=== PATIENT | male | born 1950 | race Caucasian/White ===

== ENCOUNTER 2016-11-13 18:51 | Emergency (ER) | payer OTHER ==
[~2016-11-13] VITALS: Ht 182.9 cm; Wt 77.7 kg
[~2016-11-13 18:51] MED LIST: ASPEC81 PO; CLON0.2T11 PO; CLOP1TAB15 PO; SIMV40TA2 PO
[2016-11-13 18:57] VITALS: TEMP 36.6; Ht 182.9 cm; Wt 77.7 kg
[2016-11-13] MEDS ORDERED: SODIUM CHLORIDE 0.9% 1000ML 500 ML IV STA (19:08)
[2016-11-13 19:10] VITALS: O2SAT 98
--- NOTE | 2016-11-13 19:19 | EMERGENCY ROOM VISIT NOTE ---
History Report prepared by Ann: Giovanni Seals Under the Supervision of: Dr. John Whelan M.D. First contact with patient: 19:02 Chief Complaint: CARDIAC ASSESSMENT Stated Complaint: POSSIBLE HEART ATTACK, MAYBE INDGESTION History of Present Illness The patient is a 66 year old male who presents to the Emergency Room with complaints of intermittent right sided chest pressure beginning yesterday. He states it was not painful at all, and states that it is relieved with belching. He states that the sensation is usually there for about a minute at a time. The patient has a history of a previous SD and states that his current symptoms feel somewhat similar. He states that there was no intervention needed for his previous SD. He denies any shortness of breath, cough, pain radiation, nausea, or diaphoresis. The patient notes that exercising improved his symptoms. His most recent stress-test was between 2-4 years ago. He estimates that he has had three episodes of his symptoms today, and three episodes yesterday. Source of History: patient Onset: Today Position: chest (right) Symptom Intensity: 1 minute episodes Quality: pressure Timing: intermittent Modifying Factors (Relieving): other (belching) Associated Symptoms: No SOB, No cough, No diaphoresis, No nausea Review of Systems See HPI for pertinent positives & negatives. A total of 10 systems reviewed and were otherwise negative. Past Medical & Surgical Medical Problems: (1) Diverticulosis (2) Heart disease (3) Hypertension Surgical Problems: (1) History of inguinal hernia repair (2) History of tonsillectomy Family History FHx: diabetes FHx: heart disease FHx: hypertension Social History Smoking Status: Current Every Day Smoker Current/Historical Medications Scheduled Aspirin (Aspirin Ec), 81 MG PO DAILY Clonidine Hcl (Catapres), 0.2 MG PO DAILY Ranitidine (Zantac), 150 MG PO BID Simvastatin (Zocor), 40 MG PO QPM Allergies Coded Allergies: No Known Allergies (Verified , 01/22/15) Physical Exam Vital Signs Date Time Temp Pulse Resp B/P Pulse Ox O2 Delivery O2 Flow Rate FiO2 11/13/16 20:15 67 18 117/80 98 Room Air 11/13/16 19:17 73 11/13/16 19:10 98 Room Air 11/13/16 18:57 36.6 75 18 125/74 97 Room Air Physical Exam GENERAL: Patient is in no acute distress. HEENT: No acute trauma, normocephalic atraumatic, mucous membranes moist, no nasal congestion, no scleral icterus. NECK: No stridor, no adenopathy, no meningismus, trachea is midline. LUNGS: Clear to auscultation bilaterally, no wheeze, no rhonchi, breath sounds equal. HEART: Without murmurs gallops or rubs, regular rate and rhythm. Chest: Nontender chest wall. ABDOMEN: Soft, nontender, bowel sounds positive, no hernias, no peritonitis. EXTREMITIES: No cyanosis or edema, full range of motion of all the joints without pain or difficulty, no signs for acute trauma. NEUROLOGIC: Oriented x 3, no acute motor or sensory deficits, no focal weakness. SKIN: No rash, no jaundice, no diaphoresis. Medical Decision & Procedures ER Provider Diagnostic Interpretation: X-ray results as stated below per interpretation by me and the radiologist: SINGLE VIEW CHEST FINDINGS: An AP, portable, upright chest radiograph is compared to study dated 04/17/2007. The examination is degraded by portable technique and patient rotation. The heart is top normal for projection and there is atherosclerotic calcification of the thoracic aorta. The pulmonary vasculature is noncongested. Enlargement of the central pulmonary arteries suggests pulmonary artery hypertension. Findings suggest obstructive physiology. Chronic interstitial thickening is unchanged from previous. There is no airspace consolidation or pleural effusion. No pneumothorax is seen. The bony thorax is grossly intact. IMPRESSION: Findings suggest obstructive physiology. There is no acute cardiopulmonary abnormality. Electronically signed by: John Domínguez M.D. Laboratory Results 11/13/16 19:25 11/13/16 19:25 Test 11/13/16 19:25 Red Blood Count 4.80 M/uL (4.7-6.1) Mean Corpuscular Volume 90.6 fL (80-100) Mean Corpuscular Hemoglobin 30.6 pg (25-34) Mean Corpuscular Hemoglobin Concent 33.8 g/dl (32-36) RDW Standard Deviation 42.4 fL (36.4-46.3) RDW Coefficient of Variation 12.8 % (11.5-14.5) Mean Platelet Volume 9.3 fL (7.4-10.4) Prothrombin Time 10.2 SECONDS (9.0-12.0) Prothromb Time International Ratio 1.0 (0.9-1.1) Activated Partial Thromboplast Time 26.9 SECONDS (21.0-31.0) Partial Thromboplastin Ratio 1.0 Anion Gap 10.0 mmol/L (3-11) Est Creatinine Clear Calc Drug Dose 79.8 ml/min Estimated GFR () 90.5 Estimated GFR (Non- 78.1 BUN/Creatinine Ratio 19.4 (10-20) Calcium Level 8.9 mg/dl (8.5-10.1) Total Bilirubin 0.2 mg/dl (0.2-1) Aspartate Amino Transf (AST/SGOT) 16 U/L (15-37) Alanine Aminotransferase (ALT/SGPT) 21 U/L (12-78) Alkaline Phosphatase 67 U/L (45-117) Total Creatine Kinase 76 U/L (39-308) Creatine Kinase MB 1.4 ng/ml (0.5-3.6) Creatine Kinase MB Ratio 1.8 (0-3.0) Troponin I < 0.015 ng/ml (0-0.045) Total Protein 6.6 gm/dl (6.4-8.2) Albumin 3.3 gm/dl (3.4-5.0) Globulin 3.3 gm/dl (2.5-4.0) Albumin/Globulin Ratio 1.0 (0.9-2) Lipase 141 U/L (73-393) Laboratory results reviewed by me. 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 ED Course 1904: The patient was evaluated in room B6. A complete history and physical exam was performed. 1907: Ordered NSS 500 mL @ 999 mL/hr IV. 2008: Reevaluated the patient. He would like to go home. Discussed results and discharge instructions: he verbalized understanding and agreement. Ordered Zantac Tab 150 mg PO. 2013: The patient is ready for discharge. Medical Decision The patient is a 66 year old male who presents to the ED with complaints of intermittent chest pressure. Differential diagnoses considered include musculoskeletal pain, angina, SD, aortic dissection, PE, reflux, pancreatitis, as well as other etiologies were considered. There is no leukocytosis or concerning anemia. No significant electrolyte abnormality, kidney failure, hepatitis or pancreatitis. There is no coagulopathy. EKG shows a normal sinus rhythm with a rate of 68, no acute ischemia. Cardiac enzyme testing times one is not suggestive of acute cardiac injury. Chest x-ray shows no mediastinal widening, pneumonia or pneumothorax. The patient presents with right-sided chest pain that improves with belching. The pain is not exertional, there are no associated symptoms. The patient feels that exercise and exertion improves his symptoms. I talked to the patient about staying in the hospital for further cardiac testing. He does not want to stay. He will come back to our ER if things are worsening. He is being discharged with Zantac. He was given an oral dose prior to discharge. The patient was encouraged to see his doctor in follow-up this week. Impression Primary Impression: Right-sided chest pain Scribe Attestation The scribe's documentation has been prepared under my direction and personally reviewed by me in its entirety. I confirm that the note above accurately reflects all work, treatment, procedures, and medical decision making performed by me. Departure Information Dispostion Home / Self-Care Prescriptions Ranitidine (Zantac) 150 Mg Tab 150 MG PO BID for 14 Days, #28 TAB Prov: John Whelan M.D. 11/13/16 Referrals Zack Garcia M.D. (PCP) Forms IMPORTANT VISIT INFORMATION Patient Instructions My [facility] Additional Instructions zantac 2x per day for 2 weeks continue all other meds return for worsening symptoms, exertional symptoms, shortness of breath see jennifer william this week for a recheck and possible stress test
[2016-11-13] MEDS ORDERED: ASPI81TA28 PO (19:23)
[2016-11-13 19:35] LABS: HEMATOCRIT 43.5 % (42-52); MEAN CELL VOLUME 90.6 fL (80-100); MEAN CORPUSCULAR HEMOGLOBIN 30.6 pg (25-34); MEAN CORPUSCULAR HGB CONC 33.8 g/dl (32-36); MEAN PLATELET VOLUME 9.3 fL (7.4-10.4); PLATELET COUNT 235 K/uL (130-400); WHITE BLOOD COUNT 8.64 K/uL (4.8-10.8)
--- NOTE | 2016-11-13 19:50 | DIAGNOSTIC IMAGING REPORT ---
SINGLE VIEW CHEST CLINICAL HISTORY: Atypical chest pain. FINDINGS: An AP, portable, upright chest radiograph is compared to study dated 04/17/2007. The examination is degraded by portable technique and patient rotation. The heart is top normal for projection and there is atherosclerotic calcification of the thoracic aorta. The pulmonary vasculature is noncongested. Enlargement of the central pulmonary arteries suggests pulmonary artery hypertension. Findings suggest obstructive physiology. Chronic interstitial thickening is unchanged from previous. There is no airspace consolidation or pleural effusion. No pneumothorax is seen. The bony thorax is grossly intact. IMPRESSION: Findings suggest obstructive physiology. There is no acute cardiopulmonary abnormality. Electronically signed by: John Domínguez M.D. 11/13/2016 7:48 PM Dictated Date/Time: 11/13/2016 7:47 PM
[2016-11-13 19:55] LABS: PROTHROMBIN TIME (PATIENT) 10.2 SECONDS (9.0-12.0)
[2016-11-13 19:56] LABS: ALT/SGPT 21 U/L (12-78); BLOOD UREA NITROGEN 19 mg/dl (7-18); BUN/CREATININE RATIO 19.4 (10-20); CALCIUM 8.9 mg/dl (8.5-10.1); CARBON DIOXIDE 26 mmol/L (21-32); CHLORIDE 107 mmol/L (98-107); GLUCOSE 199 mg/dl (70-99); POTASSIUM 3.8 mmol/L (3.5-5.1); SODIUM 143 mmol/L (136-145)
[2016-11-13 20:01] LABS: ALKALINE PHOSPHATASE 67 U/L (45-117); AST/SGOT 16 U/L (15-37); CKMB/CK RATIO 1.8 (0-3.0)
[2016-11-13] MEDS ORDERED: RANITIDINE HCL 150 MG TAB PO STA (20:09)
[2016-11-13] MEDS ORDERED: ZNTT/150 PO (20:12)
[2016-11-13 20:15] VITALS: BP 117/80; PULSE 67; O2SAT 98
[2017-05-23] MEDS ORDERED: PRLSR20 PO (15:41)
[2017-05-23] MEDS ORDERED: APOA1CAP PO (15:41)
[2017-05-23] MEDS ORDERED: LISI-461 PO (15:41)
== END 2016-11-13 20:18 | disposition home or self-care (01) ==
LOC: C.EDB 18:53
DX: R07.89 Other chest pain (principal); I10 Essential (primary) hypertension; I51.9 Heart disease, unspecified; K57.90 Diverticulosis of intestine, part unspecified, without perforation or abscess without bleeding; F17.210 Nicotine dependence, cigarettes, uncomplicated; Z98.890 Other specified postprocedural states; Z79.82 Long term (current) use of aspirin; Z79.899 Other long term (current) drug therapy; Z83.3 Family history of diabetes mellitus; Z82.49 Family history of ischemic heart disease and other diseases of the circulatory system

== ENCOUNTER → 2017-05-06 | Outpatient (CLI) | payer OTHER ==
[~2017-05-06] MED LIST changes: +APOA1CAP PO; -ASPEC81 PO; +ASPI81TA28 PO; -CLOP1TAB15 PO; +LISI-461 PO; +OPTIRAY 320 IV PRN; +PRLSR20 PO
--- NOTE | 2017-05-06 10:41 | DIAGNOSTIC IMAGING REPORT ---
ABDOMEN COMBO CLINICAL HISTORY: 66 years-old Male presenting with DYSPHAGIA; ABNORMAL WEIGHT LOSS. TECHNIQUE: Multidetector CT of the abdomen was performed before and after administration of intravenous contrast. IV contrast: 94 mL of Optiray 320. A dose lowering technique was used consistent with the principles of ALARA (as low as reasonably achievable). COMPARISON: 01/27/2016. CT DOSE (mGy.cm): The estimated cumulative dose is 1014.39 mGy.cm. FINDINGS: Software Technician topogram: Unremarkable. Lung bases: Lung bases clear. Normal heart size. Coronary artery calcification. No pericardial or pleural effusion. Liver: Normal morphology. No liver lesion. Patent hepatic vasculature. Biliary: No intrahepatic or extrahepatic biliary ductal dilatation. Normal gallbladder. Pancreas: Normal. No gross evidence of a pancreatic mass. No evidence of hepatic ductal dilatation. Spleen: Normal. Adrenal glands: Normal. Kidneys and ureters: Well-defined adjacent hypodensities in the left kidney compatible with simple cysts. Bilateral extrarenal pelvises. No hydronephrosis. Nonobstructing 3 mm calculus at the left lower pole. Gastrointestinal tract: Normal. No bowel obstruction. Peritoneal cavity: No free fluid or intraperitoneal gas. Vasculature: Atherosclerosis of the abdominal aorta, which has mild ectasia of the infrarenal portion. IVC patent. Lymph nodes: Enlarged gastrohepatic lymph nodes, which may be centrally hypodense. One measures 25 x 19 mm and the second measures 31 x 14 mm. Additional prominent lymph nodes in the alexandra hepatis. Additional prominent lymph node adjacent to the esophagus (series 10 image 52). Abdominal wall: Diastases of the abdominis rectus. Musculoskeletal: Degenerative changes of the spine. IMPRESSION: 1. No evidence of pancreatic mass. 2. Interval development of upper abdominal lymphadenopathy in the gastrohepatic region. This is concerning for primary lymphoproliferative disorder versus lymphangitic metastases of an unknown primary. Further evaluation with PET/CT could be considered as clinically indicated. The presence of a prominent esophageal lymph node could raise concern for primary esophageal malignancy. Further evaluation with upper endoscopy could also be considered. Electronically signed by: Lester Cooley M.D. 05/06/2017 10:40 AM Dictated Date/Time: 05/06/2017 10:30 AM
--- NOTE | 2017-05-06 11:31 | DIAGNOSTIC IMAGING REPORT ---
CT SCAN OF THE CHEST WITH IV CONTRAST CLINICAL HISTORY: Dysphagia. Abnormal weight loss. COMPARISON STUDY: Chest x-ray dated 11/13/2016. TECHNIQUE: Following the IV administration of 94 cc of Optiray 320, CT scan of the thorax was performed from the thoracic inlet to the upper abdomen. Images are reviewed in the axial, sagittal, and coronal planes. IV contrast was administered without complication. A dose lowering technique was utilized adhering to the principles of ALARA. CT DOSE: Reported separately under the concurrently performed CT scan of the abdomen. FINDINGS: Thyroid: Imaged portions of the thyroid gland are normal in size and attenuation. Thoracic aorta: There is mild atherosclerotic calcification of the thoracic aorta. There is minimal ectasia of the ascending thoracic aorta which measures up to 4 cm in diameter. The remainder of the thoracic aorta is normal in caliber and demonstrates 4-vessel variant arch anatomy. No dissection is seen. Pulmonary vasculature: The pulmonary trunk is normal in caliber. There are no filling defects identified in the central pulmonary vessels to indicate pulmonary embolus. Note that this examination was not protocoled for evaluation of the pulmonary arteries. Heart: The heart is normal in size and configuration, and without pericardial effusion. Lungs and pleural spaces: Mild emphysema is identified. There is no airspace consolidation or pleural effusion. A fat-containing Bochdalek hernia is noted at the right lung base. Foci of linear atelectasis versus scarring are identified in the lower lobes. The trachea and central airways are clear. A 3 mm left upper lobe nodule is seen on axial image #111. Mediastinum: There is no mediastinal lymphadenopathy. Herminia: Clear. Axillae: There is no axillary lymphadenopathy. Upper abdomen: Findings suggest hepatic steatosis. There is gastrohepatic lymphadenopathy. The largest node is seen on image #289 and measures 2.8 x 2.1 cm. Esophagus: The esophagus is grossly normal as visualized. No obvious mass lesion is identified. A prominent paraesophageal node is seen just above the hiatus on image #253 and measures 6 mm in short axis. Skeletal structures: No lytic or blastic bony lesions are seen. IMPRESSION: 1. Gastrohepatic lymphadenopathy is identified. This is concerning for neoplasm. 2. No mediastinal, hilar, or axillary lymphadenopathy is seen. 3. Mild emphysema. 4. There is no airspace consolidation or pleural effusion. 5. There is an indeterminant but low suspicion 3 mm left upper lobe pulmonary nodule. This can be followed if clinically warranted. 6. There is minimal ectasia of the ascending thoracic aorta which measures up to 4.0 cm. The remainder of the thoracic aorta is normal in caliber. Electronically signed by: John Domínguez M.D. 05/06/2017 11:30 AM Dictated Date/Time: 05/06/2017 11:22 AM
== END | disposition home or self-care (01) ==
LOC: C.CTS 09:16
PROVIDERS: ATTEND Internal Medicine Gastroenterology
DX: K22.9 Disease of esophagus, unspecified (principal); R59.0 Localized enlarged lymph nodes; J43.9 Emphysema, unspecified; R91.1 Solitary pulmonary nodule; I77.810 Thoracic aortic ectasia

== ENCOUNTER → 2017-05-17 | Outpatient (CLI) | payer OTHER ==
[~2017-05-17] MED LIST changes: -OPTIRAY 320 IV PRN
[2017-05-17 12:14] LABS: BASO % 0.2 %; BASO ABS # 0.03 K/uL (0-0.2); COMPLETE YES; EOS % 1.9 %; HEMATOCRIT 45.3 % (42-52); IG% 0.5 %; LYMPH % 14.6 %; LYMPH ABS # 1.92 K/uL (1.2-3.4); MEAN CELL VOLUME 91.3 fL (80-100); MEAN CORPUSCULAR HEMOGLOBIN 30.2 pg (25-34); MEAN CORPUSCULAR HGB CONC 33.1 g/dl (32-36); MONO % 7.7 %; NEUT % 75.1 %; PLATELET COUNT 285 K/uL (130-400); RED BLOOD COUNT 4.96 M/uL (4.7-6.1); WHITE BLOOD COUNT 13.14 K/uL (4.8-10.8)
[2017-05-17 12:29] LABS: ALT/SGPT 27 U/L (12-78); BLOOD UREA NITROGEN 19 mg/dl (7-18); BUN/CREATININE RATIO 19.7 (10-20); CALCIUM 9.8 mg/dl (8.5-10.1); CARBON DIOXIDE 31 mmol/L (21-32); CHLORIDE 104 mmol/L (98-107); CREATININE 0.98 mg/dl (0.60-1.40); GLUCOSE 125 mg/dl (70-99); POTASSIUM 5.1 mmol/L (3.5-5.1); SODIUM 138 mmol/L (136-145)
[2017-05-17 12:31] LABS: ALB/GLOB RATIO 1.1 (0.9-2); ALKALINE PHOSPHATASE 74 U/L (45-117); AST/SGOT 15 U/L (15-37)
== END | disposition home or self-care (01) ==
LOC: C.LAB 11:29
PROVIDERS: ATTEND Internal Medicine Hematology & Oncology
DX: C15.5 Malignant neoplasm of lower third of esophagus (principal)

== ENCOUNTER 2017-05-25 10:56 | Inpatient (IN) | payer OTHER ==
[2017-05-23 15:42] VITALS: Ht 182.9 cm; Wt 73.0 kg
[2017-05-25] VITALS (8 sets, daily range): BP systolic 103–158; BP diastolic 63–87; PULSE 71–87; TEMP 36.5–37; O2SAT 95–100
[~2017-05-25] VITALS: Ht 182.9 cm; Wt 73.0 kg
[~2017-05-25 10:56] MED LIST changes: +LACTATED RINGER'S 1000ML 1,000 ML IV SCH
[2017-05-25] MEDS ORDERED: FENTANYL CITRATE INJ 50 MCG/1 ML 2 ML VIAL ONE (13:41)
[2017-05-25] MEDS ORDERED: MIDAZOLAM HCL 1 MG/ML 2ML VIAL ONE (13:41)
--- NOTE | 2017-05-25 14:41 | History & Physical Bridge Note ---
H&P Re-Evaluation Bridge Note: I have examined the patient, reviewed the History & Physical and in the interval since the performance of the History & Physical I have noted the following changes of clinical significance: No changes noted
[2017-05-25] MEDS ORDERED: CEFAZOLIN SOD 1 GM VIAL ONE ×2 (15:30→16:13)
[2017-05-25] MEDS ORDERED: ONDANSETRON INJ 2 MG/ML 2 ML VIAL ONE (16:13)
[2017-05-25] MEDS ORDERED: BUPIVACAINE/EPINEPHRINE 0.5% MPF 1:200,000 10 ML VIAL ONE (16:13)
[2017-05-25] MEDS ORDERED: CISATRACURIUM BESYLATE IV SOLN 2 MG/ML 10 ML VIAL ONE (16:13)
[2017-05-25] MEDS ORDERED: GLYCOPYRROLATE INJ 0.2 MG/ML VIAL ONE (16:13)
[2017-05-25] MEDS ORDERED: EpHEDrine SULFATE 50MG/5ML SYR ONE (16:13)
[2017-05-25] MEDS ORDERED: PROPOFOL IV EMULSION 10 MG/ML 20 ML VIAL IV ONE (16:13)
[2017-05-25] MEDS ORDERED: DEXAMETHASONE SOD INJ 4 MG/ML VIAL ONE (16:13)
[2017-05-25] MEDS ORDERED: NEOSTIGMINE METHYLSULFATE 5 MG/5 ML SYR ONE (16:13)
[2017-05-25] MEDS ORDERED: PHENYLEPHRINE 100MCG/ML 5ML SYR ONE (16:13)
[2017-05-25] MEDS ORDERED: LIDOCAINE HCL 2% 2 ML VIAL (20MG/ML) ONE (16:13)
[2017-05-25] MEDS ORDERED: OXYCODONE HCL IR 5 MG TAB (IMMEDIATE RELEASE) PO PRN (16:30)
[2017-05-25] MEDS ORDERED: ONDANSETRON INJ 2 MG/ML 2 ML VIAL IV PRN (16:30)
[2017-05-25] MEDS ORDERED: MoRPHine SULFATE 2 MG/ML CARP IV PRN (16:30)
[2017-05-25] MEDS ORDERED: HYDROmorphone INJ 1 MG/ML SYR ONE (16:59)
[2017-05-25] MEDS ORDERED: NURSING VERBAL MED ORDER ONE (17:00)
--- NOTE | 2017-05-25 17:29 | Anesthesiology Progress Note ---
Anesthesia Post Op Note Date & Time May 25, 2017 at 17:29 Vital Signs Pain Intensity: 2 Vital Signs Past 12 Hours Date Time Temp Pulse Resp B/P (MAP) Pulse Ox O2 Delivery O2 Flow Rate FiO2 05/25/17 17:21 36.4 05/25/17 17:21 145/85 05/25/17 17:17 71 17 95 05/25/17 17:17 69 17 05/25/17 17:16 147/88 05/25/17 17:12 72 16 100 05/25/17 17:12 70 16 05/25/17 17:11 153/91 05/25/17 17:08 16 05/25/17 17:08 76 16 05/25/17 17:05 153/93 05/25/17 17:03 73 14 100 05/25/17 17:03 73 14 05/25/17 17:02 75 17 124/93 100 05/25/17 17:02 75 17 05/25/17 16:57 71 25 100 05/25/17 16:57 71 25 05/25/17 16:56 155/86 05/25/17 16:52 73 19 05/25/17 16:52 73 19 93 05/25/17 16:51 179/93 05/25/17 16:49 71 16 100 05/25/17 16:49 71 16 05/25/17 16:46 152/91 05/25/17 16:44 68 15 99 05/25/17 16:44 69 15 05/25/17 16:41 141/92 05/25/17 16:39 71 21 95 05/25/17 16:39 71 21 05/25/17 16:35 149/97 05/25/17 16:35 152/97 05/25/17 16:34 35.6 75 16 152/97 100 Mask 10 05/25/17 11:33 36.7 87 18 140/83 (102) 99 Room Air Notes Mental Status: alert / awake / arousable, participated in evaluation Pt Amnestic to Procedure: Yes Nausea / Vomiting: adequately controlled Pain: adequately controlled Airway Patency, RR, SpO2: stable & adequate BP & HR: stable & adequate Hydration State: stable & adequate Anesthetic Complications: no major complications apparent
[2017-05-25 19:09] LABS: HEMATOCRIT 43.2 % (42-52); MEAN CELL VOLUME 90.8 fL (80-100); MEAN CORPUSCULAR HEMOGLOBIN 30.5 pg (25-34); MEAN CORPUSCULAR HGB CONC 33.6 g/dl (32-36); MEAN PLATELET VOLUME 8.7 fL (7.4-10.4); PLATELET COUNT 241 K/uL (130-400); RED BLOOD COUNT 4.76 M/uL (4.7-6.1); WHITE BLOOD COUNT 17.68 K/uL (4.8-10.8)
[2017-05-25 19:20] LABS: PROTHROMBIN TIME (PATIENT) 10.7 SECONDS (9.0-12.0)
[2017-05-25 19:30] LABS: CREATININE 0.96 mg/dl (0.60-1.40)
[2017-05-25] MEDS: D5W AND 1/2NSS 1,000 ML IV SCH (19:48)
[2017-05-25] MEDS: KETOROLAC TROMETHAMINE 15 MG/ML VIAL IV. SCH (19:48)
[2017-05-25] MEDS: METOCLOPRAMIDE HCL INJ 5 MG/ML 2 ML VIAL IV. SCH (19:49)
[2017-05-25] MEDS: CEFAZOLIN IV 2,000 MG in DEXTROSE 5% 50ML 100 ML IV SCH (19:49)
[2017-05-25] MEDS: DOCUSATE SODIUM 100 MG CAP PO SCH (21:00)
[2017-05-25] MEDS: ACETAMINOPHEN IV 1,000 MG in EMPTY BAG 0 ML IV SCH (21:41)
--- NOTE | 2017-05-25 22:18 | OPERATIVE REPORT ---
DATE OF OPERATION: 05/25/2017 PREOPERATIVE DIAGNOSIS: Adenocarcinoma, gastroesophageal junction. POSTOPERATIVE DIAGNOSIS: Same. PROCEDURE: Robotic assisted laparoscopic staging procedure. SURGEON: Dr. Queen. PIPED BUTTONHOLE MACHINE OPERATOR: LAUREL Taylor. ANESTHESIA: General anesthesia endotracheal intubation. INDICATION FOR PROCEDURE AND FINDINGS: Mr. 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 He had some lymphadenopathy and in the perigastric area. Dr. Bronson Back who saw this patient is preparing him for chemotherapy and radiation and felt due to his good performance status, that he may well be an operative candidate after neoadjuvant chemoradiation. I saw him and ordered a PET scan. The PET scan did light up these nodes in the GE junction, but he did not have evidence of metastatic disease. Dr. Back wished for peritoneal washings to ensure that he did not have intra-abdominal metastases. On 05/24/2017, the patient underwent an uncomplicated robotic procedure with 2 ports. I instilled 1000 mL into the peritoneal cavity and removed about 900 of that, after allowing it to wash both the superior and inferior aspects of the peritoneal cavity by placing the patient in Trendelenburg and then reverse Trendelenburg. We suctioned this out. I then could palpate this large node that was of such concern. I did a single fine needle aspiration which came back as adenocarcinoma. The patient tolerated it well. PROCEDURE IN DETAIL: The patient was brought to the operating room and laid in supine position. General anesthesia induced and endotracheal intubation was performed. He was prepped and draped in usual sterile fashion, calling appropriate timeout and giving prophylactic antibiotics. A 1 cm incision was made 4 cm above the umbilicus. Veress needle was then placed and carbon dioxide was insufflated. When the patient's peritoneal cavity was obviously distended, a 12 mm port was placed. Camera then showed that we really had very little in the way of peritoneal adhesions. I then placed an 8 mm port to the right of the rectus muscle under direct vision and then instilled 1000 mL of warm saline. The patient was in reverse Trendelenburg and this flowed down to his pelvis. We then put him in a Trendelenburg position and it flowed back up to the diaphragmatic area and we suctioned out almost all of this fluid. I closely inspected the liver, I did not see any evidence of metastatic disease. I closely inspected the small bowel, omentum and really did not see any evidence of peritoneal seeding. He did have a large node in the lesser curvature. In fact, there were 2 large nodes. These were superior to the pancreas. I used a long needle and a single 18 gauge needle was placed in the mass and then removed. It was a hard mass, it was a bit "crunchy." I then pulled this out and we had a good specimen on the slide. I closely inspected the rest of peritoneal cavity. We elected to close. I used an EndoStitch to close the 8 mm port. This was a #1 Maxon. I then used #1 Maxon to close the 12 mm port under direct vision. 4-0 Monocryl was used to close the skin. He tolerated this quite well. He was extubated and returned to the postanesthesia care unit in stable condition. I attest to the content of the Intraoperative Record and any orders documented therein. Any exception s are noted below.
[2017-05-26 01:53] VITALS: BP 122/74; PULSE 77; TEMP 36.5; O2SAT 97
[2017-05-26] MEDS: D5W AND 1/2NSS 1,000 ML IV SCH (01:56)
[2017-05-26 03:48] VITALS: BP 114/69; PULSE 77; TEMP 37.1; O2SAT 97
[2017-05-26] MEDS: CEFAZOLIN IV 2,000 MG in DEXTROSE 5% 50ML 100 ML IV SCH (03:53)
[2017-05-26] MEDS: METOCLOPRAMIDE HCL INJ 5 MG/ML 2 ML VIAL IV. SCH (03:53)
[2017-05-26] MEDS: KETOROLAC TROMETHAMINE 15 MG/ML VIAL IV. SCH (03:53)
[2017-05-26] MEDS: ACETAMINOPHEN IV 1,000 MG in EMPTY BAG 0 ML IV SCH (05:34)
[2017-05-26 07:55] VITALS: BP 108/68; PULSE 62; TEMP 36.6; O2SAT 97
[2017-05-26 08:24] VITALS: O2SAT 97
--- NOTE | 2017-05-26 08:28 | Discharge Instructions ---
Discharge Instructions Date of Service May 26, 2017. Admission Reason for Admission: Gastroesophageal Cancer Discharge Discharge Diagnosis / Problem: Gastroesophageal Cancer Discharge Goals Goal(s): Learn about illness Activity Recommendations Activity Limitations: as noted below Lifting Limitations: no more than 10 pounds 1. Do not lift objects heavier than 10 pound until cleared to do so by Dr. Queen. . Instructions / Follow-Up Instructions / Follow-Up 1. Office appointment with Dr. Queen in 1 week. Office will call you with date and time of appointment. 2. Dr. Queen will discuss you biopsy and pathology results as well as future treatment plan at your office appointment. Current Hospital Diet Patient's current hospital diet: Clear Liquid Diet Discharge Diet Recommended Diet: Regular Diet Procedures Procedures Performed: Robot Assisted Staging Laparoscopy with Peritoneal Washings, and Fine-Needle Biopsy of the Local Regional Lymph Node Pending Studies Studies pending at discharge: no Medical Emergencies . Who to Call and When: Medical Emergencies: If at any time you feel your situation is an emergency, please call 911 immediately. . Non-Emergent Contact Non-Emergency issues call your: Surgeon Call Non-Emergent contact if: you have a fever, your pain is not controlled, wound has increased drainage . "Provider Documentation" section prepared by Stuart Altamirano. . VTE Core Measure Inpt VTE Proph given/why not?: Enoxaparin (Lovenox)SQ
[2017-05-26] MEDS: DOCUSATE SODIUM 100 MG CAP PO SCH (08:58)
[2017-05-26] MEDS ORDERED: ENOXAPARIN 40 MG/0.4 ML SYR SQ SCH (09:00)
[2017-05-26] MEDS ORDERED: PANTOprazole SOD 40 MG TAB PO SCH (09:00)
[2017-05-26] MEDS ORDERED: SIMVASTATIN 40 MG TAB PO SCH (09:00)
[2017-05-26] MEDS ORDERED: LISINOPRIL 10 MG TAB PO SCH (09:00)
[2017-05-26] MEDS ORDERED: ASPIRIN 81 MG ECTAB PO SCH (09:00)
[2017-05-26] MEDS ORDERED: APOAEQUORIN 10 MG PO SCH (09:00)
--- NOTE | 2017-05-26 09:01 | Clinical Documentation Query ---
LARS Saldana : CLINICAL DOCUMENTATION QUERY Patient is a 66 year old male who underwent robotic assisted laparoscopic staging procedure. Documentation in operative record included ". He did have a large node in the lesser curvature. In fact, there were 2 large nodes. These were superior to the pancreas. 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 In your clinical opinion is this patient being managed for: ( ) Excisional biopsy of mesenteric lymph node of lesser curvature of stomach ( X ) Not Agree ( ) Other explanation of clinical findings (Please Explain) ( ) Unable to determine (Please Define) ( ) Need to Discuss The medical record reflects the following clinical findings, treatment, and risk factors. 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 Please clarify and document your clinical opinion in the progress notes and discharge summary. Terms such as "probable", "suspected", "likely", "questionable", "possible", or "still to be ruled out" are acceptable. IF IN AGREEMENT, YOU MUST DOCUMENT ABOVE DIAGNOSTIC STATEMENT IN DAILY PROGRESS NOTES AND DISCHARGE SUMMARY. This document is not part of the patient's record. Thank You, Fabio Rivera, IVPIN [phone]
--- NOTE | 2017-05-26 09:06 | Anesthesiology Progress Note ---
Anesthesia Post Op Note Date & Time May 26, 2017 at 09:05 Vital Signs Pain Intensity: 2 (2) Vital Signs Past 12 Hours Date Time Temp Pulse Resp B/P (MAP) Pulse Ox O2 Delivery O2 Flow Rate FiO2 05/26/17 08:24 97 Room Air 05/26/17 07:55 36.6 62 12 108/68 (81) 97 Room Air 05/26/17 07:35 Room Air 05/26/17 03:48 37.1 77 16 114/69 (84) 97 Room Air 05/26/17 01:53 36.5 77 17 122/74 (90) 97 Room Air 05/25/17 23:50 Room Air 05/25/17 23:41 37.0 76 16 103/63 (76) 96 Room Air 05/25/17 22:53 36.9 80 16 125/74 (91) 96 Room Air 05/25/17 21:45 37.0 74 16 122/78 (93) 96 Room Air Notes Mental Status: alert / awake / arousable Pt Amnestic to Procedure: Yes Nausea / Vomiting: adequately controlled Pain: adequately controlled Airway Patency, RR, SpO2: stable & adequate BP & HR: stable & adequate Hydration State: stable & adequate
--- NOTE | 2017-05-26 09:21 | DISCHARGE SUMMARY ---
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 HOSPITAL COURSE: This 66-year-old male who was found to have adenocarcinoma of the GE junction. There were some lymph nodes which were noted which appeared to be large. A endoscopic ultrasound showed this to have at least a T3 lesion. Lymph node status was suspicious as the PET scan did light these up. Dr. Bronson Back asked if we could obtain some peritoneal washings to ensure that he did not have advanced disease. On 05/24/2017 I did a robotic laparoscopic staging. We used 2 ports. I did peritoneal washings of his entire abdomen by placing him in reverse Trendelenburg and then Trendelenburg and suctioned out a liter of fluid. I was quite happy with how well this went. There was no evidence of intraperitoneal metastases. I closely inspected the liver as well as the omentum. He did have significant lymphadenopathy in the lesser curvature and I did biopsy this and it is consistent with metastatic disease. We used fine needle aspiration, but rapid on site evaluation showed this to be an adenocarcinoma. As this is the case he was discharged the morning after the procedure and he looked quite good, he was tolerating clear liquid diet. We will see him back next week to go over the peritoneal lavage. Dr. Back will be seeing him back in the office also.
[2017-05-26 09:24] VITALS: BP 108/68; PULSE 62; TEMP 36.6; O2SAT 97
== END 2017-05-26 09:50 | disposition home or self-care (01) | DRG 357 ==
LOC: C.ACU 10:56 → C.MSW 16:24 → ENRESERV 17:02
PROVIDERS: ADMIT Surgery; ATTEND Surgery
PROC: 8E0W8CZ Robotic Assisted Procedure of Trunk Region, Via Natural or Artificial Opening Endoscopic (ICD-10-PCS; principal; 2017-05-25 11:10)
PROC: 0DBW0ZX Excision of Peritoneum, Open Approach, Diagnostic (ICD-10-PCS; principal; 2017-05-25 11:10)
DX: C16.0 Malignant neoplasm of cardia (principal); C77.9 Secondary and unspecified malignant neoplasm of lymph node, unspecified; I10 Essential (primary) hypertension; I67.9 Cerebrovascular disease, unspecified; G31.84 Mild cognitive impairment of uncertain or unknown etiology; E78.00 Pure hypercholesterolemia, unspecified; J44.9 Chronic obstructive pulmonary disease, unspecified; R01.1 Cardiac murmur, unspecified; D04.9 Carcinoma in situ of skin, unspecified; Z80.9 Family history of malignant neoplasm, unspecified; Z79.82 Long term (current) use of aspirin; Z79.899 Other long term (current) drug therapy; I25.2 Old myocardial infarction; Z87.891 Personal history of nicotine dependence; Z92.3 Personal history of irradiation; Z85.46 Personal history of malignant neoplasm of prostate; Z72.89 Other problems related to lifestyle

== ENCOUNTER → 2017-05-25 | Outpatient (CLI) | payer OTHER ==
[~2017-05-25] MED LIST changes: -CLON0.2T11 PO
--- NOTE | 2017-05-25 12:06 | DIAGNOSTIC IMAGING REPORT ---
PET/CT HISTORY: ESOPHAGUS MALIGNANT NEOPLASM TECHNIQUE: PET/CT was performed from the base of the skull through the pelvis following the intravenous administration of 15.25 mCi of F18-FDG. Non-contrast CT imaging was performed over the same range without breath-hold for attenuation correction of PET images and anatomic correlation, but not for primary interpretation as it is not of standard diagnostic quality. CT DOSE: COMPARISON: Chest and abdomen CT 05/06/2017. FINDINGS: HEAD AND NECK: There is no FDG-avid disease or significant lymphadenopathy in the imaged portions of the head and the neck. CHEST: There is a 1.2 x 0.7 cm upper right paratracheal lymph node on image 60 which demonstrates an SUV max of 4.4. No FDG avid hilar lymphadenopathy. The prominent distal paraesophageal lymph node on image 128 does not demonstrate abnormal FDG uptake. This measures 1.2 x 0.8 cm. Stable 3 mm indeterminate nodule within the left upper lobe on image 83. This does not demonstrate abnormal FDG uptake but is likely below the threshold for PET imaging. No new or FDG avid pulmonary nodules identified. ABDOMEN/PELVIS: No change in size of the gastrohepatic lymphadenopathy. Dominant lymph node measures 3.0 x 1.9 cm. These gastrohepatic lymph nodes demonstrate abnormal FDG uptake with an SUV max of 6.8. There is also a 12 x 8 mm periportal lymph node on image 138 which demonstrates abnormal FDG uptake with an SUV max of 4.8. Abnormal thickening and FDG uptake seen within the gastroesophageal junction/gastric cardia demonstrating an SUV max of 5.9. This is concerning for the suspected gastroesophageal mass. Left-sided nephrolithiasis. Colonic diverticulosis. Mildly ectatic abdominal aorta measuring up to 2.7 cm. The prostate gland is surgically absent. MUSCULOSKELETAL: There is no FDG-avid or destructive bone lesion. IMPRESSION: 1. Abnormal thickening and FDG uptake within the gastroesophageal junction/gastric cardia which is highly suspicious for the suspected gastroesophageal mass. 2. FDG avid gastrohepatic lymphadenopathy. There is also a single prominent FDG avid periportal lymph node. These are consistent with metastatic disease. 3. A single prominent paraesophageal lymph nodes which does not demonstrate abnormal FDG uptake. Therefore, this is indeterminate. 4. A single FDG avid upper right paratracheal lymph node consistent with metastatic disease. Electronically signed by: Santiago Bergman M.D. 05/25/2017 12:05 PM Dictated Date/Time: 05/25/2017 11:49 AM
== END | disposition home or self-care (01) ==
LOC: C.PET 08:23
PROVIDERS: ATTEND Surgery
DX: C15.9 Malignant neoplasm of esophagus, unspecified (principal)

== ENCOUNTER → 2017-08-15 | Outpatient (CLI) | payer OTHER ==
[~2017-08-15] MED LIST changes: +AGG PO; -APOA1CAP PO; -LACTATED RINGER'S 1000ML 1,000 ML IV SCH
--- NOTE | 2017-08-15 11:08 | DIAGNOSTIC IMAGING REPORT ---
PET/CT HISTORY: ESOPHAGEAL CANCER TECHNIQUE: PET/CT was performed from the base of the skull through the pelvis following the intravenous administration of 14.1 mCi of F18-FDG. Non-contrast CT imaging was performed over the same range without breath-hold for attenuation correction of PET images and anatomic correlation, but not for primary interpretation as it is not of standard diagnostic quality. CT DOSE: 292.84 mGycm COMPARISON: PET CT 05/25/2017. FINDINGS: HEAD AND NECK: There is no FDG-avid disease or significant lymphadenopathy in the imaged portions of the head and the neck. CHEST: The upper right peritracheal lymph node has significantly decreased in size and now measures 5 mm. The FDG uptake has also resolved. The large distal paraesophageal lymph nodes has essentially resolved. No suspicious pulmonary nodules. No FDG avid mediastinal or hilar lymphadenopathy. A 2.2 cm groundglass airspace opacity within the base of the left lower lobe which demonstrates minimal FDG uptake with an SUV max of 1.8. This favors mild inflammatory/infectious change. ABDOMEN/PELVIS: FDG uptake at the gastroesophageal junction has almost completely resolved. This currently measures an SUV max of 2, previously measuring and SUV max of 5.9. Decrease in size and FDG uptake within the FDG avid gastric hepatic lymph nodes. Dominant lymph node measures 1.9 x 1.3 cm with an SUV max of 6. This previously measured 3.0 x 1.9 cm with an SUV max of 7.4. The FDG avid periportal lymph node appears to have resolved. Left-sided nephrolithiasis. Colonic diverticulosis. The prostate gland is surgically absent. Focus of FDG uptake along the right side the bladder is likely due to a diverticulum. MUSCULOSKELETAL: There is no FDG-avid or destructive bone lesion. IMPRESSION: 1. Interval improvement in the FDG avid disease as described above.. 2. Focal groundglass airspace opacity within the base of the lingula demonstrating minimal degenerative uptake. This favors a small focus of inflammatory/infectious change. Electronically signed by: Santiago Bergman M.D. 08/15/2017 11:07 AM Dictated Date/Time: 08/15/2017 10:53 AM
== END | disposition home or self-care (01) ==
LOC: C.PET 08:07
PROVIDERS: ATTEND Nurse Practitioner Family
DX: C15.5 Malignant neoplasm of lower third of esophagus (principal)

== ENCOUNTER → 2017-08-17 | Outpatient (CLI) | payer OTHER ==
[~2017-08-17] MED LIST changes: +OMEP40CA41 PO
[2017-08-17 14:41] VITALS: BP 111/61; PULSE 87; TEMP 36.6; O2SAT 97
--- NOTE | 2017-08-17 16:01 | Radiation Oncology Follow-Up ---
Radiation Oncology Follow-Up Date of Visit Aug 17, 2017. Reason For Visit One-month follow-up and cancer survivorship care plan Radiation Completion Date 07/15/17 Diagnosis (1) Gastroesophageal cancer Status: Acute Onset Date: 05/03/2017 Location: gastroesophageal junction with invasion into the cardia Histology Subtype: adenocarcinoma Stage: ll (clinical) Permanent Comment: Dysphagia and weight loss Status post upper GI endoscopy and biopsy 05/03/2017 Adenocarcinoma of the gastroesophageal junction with invasion to the cardia Clinical stage T2c N2 M0 PET/CT performed 05/25/2017 negative for distant metastatic disease positive at the superior and inferior esophagus. Status post completion of combined radiation and chemotherapy. Chemotherapy completed 07/15/2017 received 5040 cGy to the superior and inferior esophagus. Last Edited By: Vita White on Jul 26, 2017 16:55 History of Present Illness Mr. Stack is initially presented with dyspepsia in January 2017. The patient states in the last several months he has been losing some weight. The patient was referred from Dr. Garcia, his primary care doctor, to Dr. Hernandez from gastroenterology. Dr. Hernandez took the patient for a upper endoscopy on 05/03/2017 which revealed a large, fungating ulcerating mass with no bleeding and no stigmata in the lower third of the esophagus, at the gastroesophageal junction and in the cardia, 43 cm from the incisors. The mass was partially obstructing and partially circumferential and biopsies were taken which confirmed adenocarcinoma involving the distal esophagus and cardia of the stomach. The patient underwent a CT of the chest, abdomen, pelvis on 05/06/2017 which revealed interval development of upper abdominal lymphadenopathy in the gastrohepatic region but no other evidence of distant metastatic disease. The patient was seen by Dr. Bronson Back from medical oncology who recommended surgical evaluation and a PET/CT scan. The patient was seen by Dr. Queen from thoracic surgery who recommended a laparoscopic sampling of the paraesophageal lymph nodes and consideration for preoperative chemotherapy and radiation therapy followed by a esophagectomy. At this point, the PET scan CT scan is scheduled for tomorrow as well as a laparoscopic staging procedure. We are now seeing the patient in consultation discussed the role of radiation therapy. Currently, the patient denies any significant dysphagia. His estimates that he lost about 6 pounds over the last several months. He denies any hematemesis or melena. He denies any shortness of breath or any other concerning symptoms. He does continue to play golf a regular basis. His PET scan was completed and there was no distant metastatic disease. Activity was seen in the superior and inferior esophagus. He completed combined radiation and chemotherapy. The radiation was completed 07/15/2017. He received 5040 cGy. Interim History He has been doing well over the past month. His appetite has improved. He has gained 4 pounds. He denies any difficulty with swallowing. He is eating a regular diet. Please had no shows with cough. He does have a problem with a rash. This began following a excision. It was made worse after his PET scan. He has tried multiple [id number] medications. He did see his family physician. He is taking Zyrtec. He does not feel this is helping with the rash. This is especially noted on his chest, back, and legs. There is been no new detergents or soap used in her household. He is not on any new medication. Allergies Coded Allergies: No Known Allergies (Verified , 05/25/17) Home Medications Scheduled Dipyridamole/Aspirin (Aggrenox 25-200 mg), 2 CAP PO BID Omeprazole (Prilosec), 40 MG PO QAM Simvastatin (Zocor), 40 MG PO QAM Review of Systems Gastrointestinal: Symptoms: WNL GI Comments: belching Oral: Symptoms: No Problems Respiratory: Symptoms: WNL Urinary: Symptoms: WNL Skin: Other Skin Symptoms: itchy red rash over chest, back and upper arms Additional Notes: He completed a distress management report and answered "no" to all questions other than he has concerns about his memory/concentration. Physical Exam Vital Signs Date Time Temp Pulse Resp B/P (MAP) Pulse Ox O2 Delivery O2 Flow Rate FiO2 08/17/17 14:41 36.6 87 20 111/61 97 Fatigue: None General Appearance: no apparent distress Eyes: normal inspection, EOMI ENT: normal ENT inspection, hearing grossly normal Neck: no adenopathy, thyroid normal Respiratory/Chest: lungs clear, no respiratory distress, no accessory muscle use Cardiovascular: regular rate, rhythm, no gallop, no murmur Abdomen: non tender, soft, no organomegaly Extremities: no pedal edema Skin: + pertinent finding (he has a diffuse maculopapular rash that is noted of the upper posterior thorax. He also has a rash of the upper anterior chest.) Pain Management Pain Location: None Patient Preferred Pain Scale: 0 - 10 Laboratory Studies Test 05/25/17 18:53 05/26/17 06:15 07/06/17 10:28 07/13/17 10:23 Prothrombin Time 10.7 SECONDS (9.0-12.0) Prothrombin Time INR 1.0 (0.9-1.1) Est Creatinine Clear Calc Drug Dose 78.2 ml/min Hepatitis C Antibody Screen NEG (NEG) White Blood Count 3.92 K/uL (4.8-10.8) 3.99 K/uL (4.8-10.8) Red Blood Count 4.36 M/uL (4.7-6.1) 4.03 M/uL (4.7-6.1) Hemoglobin 12.7 g/dL (14.0-18.0) 12.5 g/dL (14.0-18.0) Hematocrit 39.8 % (42-52) 36.8 % (42-52) Mean Corpuscular Volume 91.3 fL (80-100) 91.3 fL (80-100) Mean Corpuscular Hemoglobin 29.1 pg (25-34) 31.0 pg (25-34) Mean Corpuscular Hemoglobin Concent 31.9 g/dl (32-36) 34.0 g/dl (32-36) Platelet Count 203 K/uL (130-400) 163 K/uL (130-400) Mean Platelet Volume 9.3 fL (7.4-10.4) 8.8 fL (7.4-10.4) Neutrophils (%) (Auto) 74.4 % 79.4 % Lymphocytes (%) (Auto) 7.9 % 7.5 % Monocytes (%) (Auto) 12.5 % 8.3 % Eosinophils (%) (Auto) 3.6 % 3.3 % Basophils (%) (Auto) 0.8 % 0.5 % Neutrophils # (Auto) 2.92 K/uL (1.4-6.5) 3.17 K/uL (1.4-6.5) Lymphocytes # (Auto) 0.31 K/uL (1.2-3.4) 0.30 K/uL (1.2-3.4) Monocytes # (Auto) 0.49 K/uL (0.11-0.59) 0.33 K/uL (0.11-0.59) Eosinophils # (Auto) 0.14 K/uL (0-0.5) 0.13 K/uL (0-0.5) Basophils # (Auto) 0.03 K/uL (0-0.2) 0.02 K/uL (0-0.2) RDW Standard Deviation 42.8 fL (36.4-46.3) 43.9 fL (36.4-46.3) RDW Coefficient of Variation 13.3 % (11.5-14.5) 13.7 % (11.5-14.5) Immature Granulocyte % (Auto) 0.8 % 1.0 % Immature Granulocyte # (Auto) 0.03 K/uL (0.00-0.02) 0.04 K/uL (0.00-0.02) Sodium Level 137 mmol/L (136-145) 137 mmol/L (136-145) Potassium Level 4.7 mmol/L (3.5-5.1) 4.4 mmol/L (3.5-5.1) Chloride Level 103 mmol/L (98-107) 105 mmol/L (98-107) Carbon Dioxide Level 27 mmol/L (21-32) 30 mmol/L (21-32) Anion Gap 7.0 mmol/L (3-11) 3.0 mmol/L (3-11) Blood Urea Nitrogen 20 mg/dl (7-18) 23 mg/dl (7-18) Creatinine 0.78 mg/dl (0.60-1.40) 0.81 mg/dl (0.60-1.40) Estimated GFR () 109.0 107.3 Estimated GFR (Non- 94.1 92.6 BUN/Creatinine Ratio 25.0 (10-20) 28.0 (10-20) Random Glucose 88 mg/dl (70-99) 96 mg/dl (70-99) Calcium Level 9.4 mg/dl (8.5-10.1) 9.5 mg/dl (8.5-10.1) Magnesium Level 2.1 mg/dl (1.8-2.4) 2.1 mg/dl (1.8-2.4) Total Bilirubin 0.4 mg/dl (0.2-1) 0.5 mg/dl (0.2-1) Aspartate Amino Transferase (AST) 20 U/L (15-37) 20 U/L (15-37) Alanine Aminotransferase (ALT) 21 U/L (12-78) 23 U/L (12-78) Alkaline Phosphatase 53 U/L (45-117) 59 U/L (45-117) Lactate Dehydrogenase 175 U/L (87-241) 197 U/L (87-241) Total Protein 6.5 gm/dl (6.4-8.2) 6.9 gm/dl (6.4-8.2) Albumin 3.4 gm/dl (3.4-5.0) 3.6 gm/dl (3.4-5.0) Globulin 3.1 gm/dl (2.5-4.0) 3.3 gm/dl (2.5-4.0) Albumin/Globulin Ratio 1.1 (0.9-2) 1.1 (0.9-2) Additional Studies Patient: BRIGIDO STACK Address1: [address] [facility] Rec: [id number] Address2: Acct ID: [id number] [facility] Zip: [place] [address] Date: 1950 Sex: M Room/Bed: Ref Phy: Zack Garcia M.D. SC: CNealPET Att Phy: Fatoumata Rowe CRNP Report #: [id number] Tyesah Phy: Zack Garcia M.D. Test: PETCTST Admit Phy: Health Coach: LOBO Interpreting Phy: Santiago Bergman MD Diagnosis: MALIGNANT NEOPLASM, ESOPHAGUS Ordering Phy: Fatoumata Rowe Service Date: 08/15/17 Admit Date: 08/15/17 MNE: [id number] CONF: DICTATED BY: Santiago Bergman M.D.]] CC: Zack Garcia M.D. Whittaker, Lynn ., CRNP Endcc: [~ rep ct add3]] PET/CT HISTORY: ESOPHAGEAL CANCER TECHNIQUE: PET/CT was performed from the base of the skull through the pelvis following the intravenous administration of 14.1 mCi of F18-FDG. Non-contrast CT imaging was performed over the same range without breath-hold for attenuation correction of PET images and anatomic correlation, but not for primary interpretation as it is not of standard diagnostic quality. CT DOSE: 292.84 mGycm COMPARISON: PET CT 05/25/2017. FINDINGS: HEAD AND NECK: There is no FDG-avid disease or significant lymphadenopathy in the imaged portions of the head and the neck. CHEST: The upper right peritracheal lymph node has significantly decreased in size and now measures 5 mm. The FDG uptake has also resolved. The large distal paraesophageal lymph nodes has essentially resolved. No suspicious pulmonary nodules. No FDG avid mediastinal or hilar lymphadenopathy. A 2.2 cm groundglass airspace opacity within the base of the left lower lobe which demonstrates minimal FDG uptake with an SUV max of 1.8. This favors mild inflammatory/infectious change. ABDOMEN/PELVIS: FDG uptake at the gastroesophageal junction has almost completely resolved. This currently measures an SUV max of 2, previously measuring and SUV max of 5.9. Decrease in size and FDG uptake within the FDG avid gastric hepatic lymph nodes. Dominant lymph node measures 1.9 x 1.3 cm with an SUV max of 6. This previously measured 3.0 x 1.9 cm with an SUV max of 7.4. The FDG avid periportal lymph node appears to have resolved. Left-sided nephrolithiasis. Colonic diverticulosis. The prostate gland is surgically absent. Focus of FDG uptake along the right side the bladder is likely due to a diverticulum. MUSCULOSKELETAL: There is no FDG-avid or destructive bone lesion. IMPRESSION: 1. Interval improvement in the FDG avid disease as described above.. 2. Focal groundglass airspace opacity within the base of the lingula demonstrating minimal degenerative uptake. This favors a small focus of inflammatory/infectious change. Electronically signed by: Santiago Bergman M.D. 08/15/2017 11:07 AM Dictated Date/Time: 08/15/2017 10:53 AM Assessment & Plan Plan: Patient was also seen today by Dr. Anthony. We have reviewed with him results of his recent PET scan. He is seeing medical oncology next week and also has an appointment with . I've asked him to call Dr. Garcia and discussed the ongoing issue with his rash. He may benefit from a Medrol Dosepak. Today we completed a cancer survivorship care plan. A copy of the document was given to the patient. He was also given a survivorship booklet. We asked him to return to our office in 6 months. He may call if he has any questions or concerns in the interim. Assessment & Plan (Attending) ADDENDUM: I agree with note created by Vita White PA-C. I reviewed the patient's chart and information with her. I have examined and evaluated the patient. I reviewed relevant clinical information and answered the patient's and /or family's questions. 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 I spent 20 minutes reviewing information, preparing the survivorship document, and completing this note. Total Time (Attending) In Follow-Up I spent 15 minutes examining and counseling the patient. BALLROOM DANCE INSTRUCTOR Copy To Zack Garcia M.D.; Beny Krishnan, D.ONeal; Pascual Queen MD
== END | disposition home or self-care (01) ==
LOC: C.ONC 14:30
PROVIDERS: ATTEND Physician Assistant Medical
DX: Z08 Encounter for follow-up examination after completed treatment for malignant neoplasm (principal); Z92.3 Personal history of irradiation; Z85.09 Personal history of malignant neoplasm of other digestive organs

== ENCOUNTER 2017-09-07 05:32 | Inpatient (IN) | payer OTHER ==
[2017-08-30 10:03] VITALS: BMI 21.0
[~2017-09-07] VITALS: Ht 182.9 cm; Wt 71.2 kg
[2017-09-07] VITALS (14 sets, daily range): BP systolic 109–142; BP diastolic 48–90; PULSE 67–82; TEMP 36.3–37; O2SAT 95–100; Ht 182.9 cm; Wt 71.2 kg
[~2017-09-07 05:32] MED LIST changes: -AGG PO; -ASPI81TA28 PO; +LACTATED RINGER'S 1000ML 1,000 ML IV SCH; -LISI-461 PO; -OMEP40CA41 PO; -PRLSR20 PO; -SIMV40TA2 PO
[2017-09-07] MEDS ORDERED: LIDOCAINE HCL 2% 2 ML VIAL (20MG/ML) ONE (06:45)
[2017-09-07] MEDS ORDERED: NEOSTIGMINE METHYLSULFATE 5 MG/5 ML SYR ONE (06:45)
[2017-09-07] MEDS ORDERED: GLYCOPYRROLATE INJ 0.2 MG/ML VIAL ONE (06:45)
[2017-09-07] MEDS ORDERED: PROPOFOL IV EMULSION 10 MG/ML 20 ML VIAL IV ONE (06:45)
[2017-09-07] MEDS ORDERED: ONDANSETRON INJ 2 MG/ML 2 ML VIAL ONE (06:45)
[2017-09-07] MEDS ORDERED: DEXAMETHASONE SOD INJ 4 MG/ML VIAL ONE (06:45)
[2017-09-07] MEDS ORDERED: FENTANYL CITRATE INJ 50 MCG/1 ML 2 ML VIAL ONE ×2 (06:46→13:48)
[2017-09-07] MEDS ORDERED: MIDAZOLAM HCL 1 MG/ML 2ML VIAL ONE (06:46)
[2017-09-07] MEDS ORDERED: METH1TAB81 PO (06:51)
[2017-09-07] MEDS ORDERED: BUPIVACAINE LIPOSOME 1/3% 266 MG/20 ML VIAL INFIL ONE ×2 (07:09→07:10)
[2017-09-07] MEDS ORDERED: SODIUM CHLORIDE 0.9% PF 50 ML VIAL ONE ×2 (07:09→07:10)
[2017-09-07] MEDS ORDERED: BOTULINUM TOXIN TYPE A 100 UNIT VIAL XX ONE (07:30)
[2017-09-07] MEDS ORDERED: CEFAZOLIN SOD 1 GM VIAL ONE ×5 (08:08→16:21)
[2017-09-07] MEDS ORDERED: HYDROmorphone INJ 2 MG/ML SYR/VIAL ONE ×2 (08:25→12:24)
[2017-09-07] MEDS ORDERED: SURGICEL ABSORB HEMOSTAT 2IN X 14IN TOP ONE (10:55)
[2017-09-07] MEDS ORDERED: PHENYLEPHRINE HCL INJ 10 MG/ML VIAL ONE ×2 (12:04→16:21)
[2017-09-07] MEDS ORDERED: EpHEDrine SULFATE 50MG/5ML SYR ONE (16:21)
[2017-09-07] MEDS ORDERED: ROCURONIUM BROMIDE 10 MG/ML 5 ML VIAL IV ONE ×5 (17:21→17:22)
[2017-09-07] MEDS ORDERED: ONDANSETRON INJ 2 MG/ML 2 ML VIAL IV PRN (18:30)
--- NOTE | 2017-09-07 19:00 | Anesthesiology Progress Note ---
Anesthesia Post Op Note Date & Time Sep 07, 2017 at 18:57 Notes Mental Status: see Notes Pt Amnestic to Procedure: Yes Nausea / Vomiting: adequately controlled Pain: adequately controlled Airway Patency, RR, SpO2: see Notes BP & HR: stable & adequate Hydration State: stable & adequate Anesthetic Complications: no major complications apparent The patient did well with the procedure. Due to the long length and complexity of the surgery, extubation was not attempted in the OR. The double lumen tube was exchanged for a single lumen 8.0 ETT over a Cook catheter. The patient was transferred on monitors and with an Ambu bag to the ICU. His vital signs were all stable upon sign out in the ICU. I spoke with Dr. García about the patient and he will manage him in the ICU.
--- NOTE | 2017-09-07 19:10 | DIAGNOSTIC IMAGING REPORT ---
SINGLE VIEW CHEST CLINICAL HISTORY: Esophagectomy. FINDINGS: An AP, portable, supine chest radiograph is compared to study dated 11/13/2016 and correlated with PET CT dated 08/15/2017. The examination is degraded by portable technique and patient rotation. An endotracheal tube has been placed. The tip of the catheter projects 5.5 cm above the raúl. A surgical drain projects over the right chest. A right-sided chest tube is in place. The cardiomediastinal silhouette is unremarkable. Chronic interstitial thickening is similar to previous. Patchy airspace opacities percent the left lung base and a pleural effusion is suspected. The right lung is grossly clear. No definite pneumothorax is seen. The bony thorax is grossly intact. Extensive subcutaneous emphysema is seen throughout the chest and lower neck. IMPRESSION: 1. An endotracheal tube has been placed. A surgical drain and a right-sided chest tube are noted. See above. 2. No definite pneumothorax is seen. 3. Patchy airspace opacities are present at the left lung base and there is a small left pleural effusion. This could represent atelectasis versus an infectious/inflammatory pneumonitis. Clinical correlation will be required. 4. Extensive subcutaneous emphysema is present throughout the chest wall and in the lower neck. Electronically signed by: John Domínguez M.D. 09/07/2017 7:08 PM Dictated Date/Time: 09/07/2017 7:05 PM
--- NOTE | 2017-09-07 19:30 | DIAGNOSTIC IMAGING REPORT ---
SINGLE VIEW CHEST CLINICAL HISTORY: Enteric tube placement. FINDINGS: An AP, portable, semierect chest radiograph is compared to study performed earlier the same day 09/07/2017 and correlated with PET CT dated 08/15/2017. The examination is degraded by portable technique and patient rotation. An enteric tube has been placed. The tip terminates above the diaphragm. An endotracheal tube is unchanged in position. A surgical drain projects over the right chest. A right-sided chest tube is in place. The cardiomediastinal silhouette is unremarkable. Chronic interstitial thickening is similar to previous. Patchy airspace opacities percent the left lung base and a pleural effusion is suspected. The right lung is grossly clear. No definite pneumothorax is seen. The bony thorax is grossly intact. Extensive subcutaneous emphysema is seen throughout the chest and lower neck. IMPRESSION: 1. An enteric tube has been placed. The tip terminates above the diaphragm. This should be advanced. 2. Additional lines and tubes are unchanged. 3. No definite pneumothorax is seen. 4. Patchy airspace opacities are present at the left lung base and there is a small left pleural effusion. This could represent atelectasis versus an infectious/inflammatory pneumonitis. Clinical correlation will be required. 5. Extensive subcutaneous emphysema is present throughout the chest wall and in the lower neck. Electronically signed by: John Domínguez M.D. 09/07/2017 7:29 PM Dictated Date/Time: 09/07/2017 7:27 PM
[2017-09-07] MEDS: D5W AND 1/2NSS 1,000 ML IV SCH (19:33)
[2017-09-07] MEDS: KETOROLAC TROMETHAMINE 15 MG/ML VIAL IV. SCH (19:37)
[2017-09-07] MEDS: ACETAMINOPHEN IV 1,000 MG in EMPTY BAG 0 ML IV SCH (19:43)
[2017-09-07 19:45] LABS: BASO % 0.1 %; BASO ABS # 0.01 K/uL (0-0.2); HEMATOCRIT 29.7 % (42-52); HEMOGLOBIN 9.5 g/dL (14.0-18.0); IG# 0.04 K/uL (0.00-0.02); LYMPH % 5.6 %; LYMPH ABS # 0.48 K/uL (1.2-3.4); MEAN CELL VOLUME 97.7 fL (80-100); MEAN CORPUSCULAR HEMOGLOBIN 31.3 pg (25-34); MEAN PLATELET VOLUME 8.6 fL (7.4-10.4); MONO % 7.4 %; MONO ABS # 0.64 K/uL (0.11-0.59); NEUT % 86.4 %; NEUT ABS # 7.47 K/uL (1.4-6.5); PLATELET COUNT 201 K/uL (130-400); RED CELL DISTRIBUTION WIDTH CV 15.4 % (11.5-14.5); WHITE BLOOD COUNT 8.64 K/uL (4.8-10.8)
[2017-09-07 20:04] LABS: CALCIUM 8.1 mg/dl (8.5-10.1); CREATININE 0.81 mg/dl (0.60-1.40); POTASSIUM 4.1 mmol/L (3.5-5.1)
--- NOTE | 2017-09-07 20:13 | Critical Care Consultation ---
Critical Care Consultation Date of Consultation: Sep 07, 2017. Attending Physician: Pascual Queen MD Reason for Consultation: Post-operative Monitoring History of Present Illness Jose Stack is a 67yo male who presented to the [facility] today for elective robotic laparotomy, right VATS with esophagogastrectomy performed by Dr. Queen which did convert to open per OR record. Per outpt documentation Jose has recently been diagnosed with adenocarcinoma of the gastroesophageal junction after endoscopy by Dr. Hernandez found a large fungating ulcerating mass without bleeding or stigmata the lower third of his esophagus at 43 cm from the incisors. He and his elected to treat aggressively. PET scan demonstrated hypermetabolic activity in a right upper paratracheal node as will as perigastric nodes; but no distant metastases were noted. A robotic thoracoscopic staging demonstrated negative cytology of peritoneal washings but positive for adenocarcinoma of the enlarged perigastric node. Patient did complete a combined radiation and chemotherapy treatment. Radiation was completed on 07/15 and he received [id number]. 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 Chemotherapy was being given weekly basis. Pt arrived intubated to the ICU still under anesthesia effect with a right chest tube, j-tube and NG tube to place. Surgery report states a blood loss of 250cc, urine outpt of 400, and total fluid resuscitation of 3.6L via LR. Pt was in OR for approx 11hrs. He received 2g of Cefazolin and 2g Ancef intraoperatively. Vital signs remained stable through procedure. Pt did received rocuronium, Dilaudid, Neosynephrine, propofol and fentanyl throughout procedure. I spoke with Dr. Queen regarding pt. He requested that pts MAP be kept greater than 80mmHg and should it fall below that IV boluses are preferred over alpha vasopressors. He sees no need to continue intubation on this pt once alert and warm. NG tube is critical, should not be manipulated or used. NG tube does terminate above the diaphragm, to which Dr. Queen is aware and requests low intermittent suction. ROS could not be obtained secondary to pt being unresponsive in the immediate post op setting. Pt has significant past medical hx which includes prostate carcinoma treated with prostatectomy and subsequent radiation therapy. early onset mild dementia, prior NE cardiac with cardiac cath and medical tx only. Past Medical/Surgical History Medical Problems: Adenocarcinoma of the esophagus Peace's disease Cerebrovascular disease Dermatofibroma Diverticulosis Dysplastic nevus Groin abscess Heart disease Hyperlipidemia Hypertension Mild neurocognitive disorder/early onset dementia Myocardial infarction Squamous cell carcinoma Surgical Problems: Upper Endoscopy Tonsillectomy Inguinal Herniorrhaphy Prostatectomy MOHS Family History FHx: diabetes FHx: heart disease FHx: hypertension Social History Smoking Status: Former Smoker Alcohol Use: occasionally Drug Use: none Marital Status: Housing Status: lives with family Allergies Coded Allergies: Iodinated Diagnostic Agents (Verified Allergy, Intermediate, HIVES, ) SHORTLY AFTER THE LIDOCAINE INJECTION DURING A SKIN LESION REMOVAL AND HAD RECEIVED CHEMOTHERAPY WITHIN 2 MONTHS PRIOR SURE UNSURE IF A TRUE ALLERGY. Lidocaine (Verified Allergy, Intermediate, HIVES, 08/30/17) HAD CHEMOTHERAPY WITHIN 2 MONTHS PRIOR Home Medications Scheduled Dipyridamole/Aspirin (Aggrenox 25-200 mg), 1 CAP PO BID Omeprazole (Prilosec), 40 MG PO QAM Simvastatin (Zocor), 40 MG PO QAM Miscellaneous Medications Methylprednisolone (Medrol), 4 MG PO Current Inpatient Medications Current Inpatient Medications Medications (Trade) Dose Ordered Sig/Yo Route Start Time Stop Time Status Last Admin Dose Admin Enoxaparin Sodium (Lovenox Inj) 40 mg DAILY SQ 09/08/17 09:00 10/08/17 08:59 UNV Dextrose/Sodium Chloride 1,000 ml @ 100 mls/hr Q10H IV 09/07/17 19:00 10/07/17 18:59 09/07/17 19:33 100 MLS/HR Ondansetron HCl (Zofran Inj) 4 mg Q4H PRN IV 09/07/17 18:30 10/07/17 18:29 Cefazolin Sodium 2000 mg/Syringe 10 ml @ 2.5 mls/min Q8H IV 09/08/17 00:00 09/08/17 08:03 Ketorolac Tromethamine (Toradol Inj) 15 mg Q8H IV. 09/07/17 19:00 09/09/17 11:01 09/07/17 19:37 15 MG Metoclopramide HCl (Reglan Inj) 10 mg Q8 IV. 09/07/17 22:00 09/08/17 21:59 Morphine Sulfate (MoRPHine SULFATE INJ) Q1H PRN IV 09/07/17 18:30 09/21/17 18:29 Acetaminophen 1000 mg/Empty Bag 100 ml @ 400 mls/hr Q8H IV 09/07/17 19:00 10/07/17 18:59 09/07/17 19:43 400 MLS/HR Review of Systems ROS could not be obtained secondary to sedation, condition, and intubation. Physical Exam Date Time Temp Pulse Resp B/P (MAP) Pulse Ox O2 Delivery O2 Flow Rate FiO2 09/07/17 19:10 36.3 73 14 119/81 100 Mechanical Ventilator 100 09/07/17 19:00 83 14 119/80 100 Mechanical Ventilator 100 Arterial Line 09/07/17 18:50 74 14 111/75 100 Mechanical Ventilator 100 Arterial Line 09/07/17 18:47 36.3 74 14 114/59 100 Mechanical Ventilator 100 09/07/17 18:30 100 09/07/17 06:08 37 77 18 120/74 95 Room Air 09/07/17 05:56 95 Room Air Vital Signs - as noted Laboratory Data - as noted Physical Exam: General - NAD. RASS -2 Eyes - PERRL, No icterus, gaze conjugate ENT -endotracheal tube in place Neck - Supple, trachea midline, no masses or lymphadenopathy, no JVD or bruits; subcutaneous emphysema noted Lungs - No paradoxical chest wall movement, clear and diminished to auscultation bilaterally, no wheezes, rales, or rhonchi Heart - Reg rate and rhythm, No murmur, rubs, clicks, or gallops appreciated Abdomen - No bowel sounds noted, no bruits noted, tympanic to percussion, soft, nontender, mildly distended, no organomegaly Extremities - No edema, pedal pulses intact Neuro - RASS -2 Strength could not be assessed Reflexes: Bicep, brachioradialis, patellar, and plantar normal and equal CN:PERRL, no facial asymmetry, uvula/tongue midline Laboratory Results Last 24 Hours Test 09/07/17 10:13 09/07/17 11:32 09/07/17 13:15 09/07/17 16:03 Bedside Blood Gas pH (LAB) 7.18 7.17 7.19 7.37 Bedside Blood Gas pCO2 (LAB) 76 mmHg 73 mmHg 61 mmHg 46 mmHg Bedside Blood Gas pO2 (LAB) 377 mmHg 96 mmHg 148 mmHg 75 mmHg Bedside Blood Gas HCO3 (LAB) 28 meq/L 26 meq/L 24 meq/L 27 meq/L Bedside Blood Gas Total CO2 31 mEq/l 29 mEq/l 26 mEq/l 28 mEq/l Bedside Blood Gas Base Excess (LAB) 0.0 meq/L -2.0 meq/L -4.0 meq/L 1.0 meq/L Bedside Blood Gas O2 Saturation 100.0 % 95.0 % 99.0 % 94.0 % Test 09/07/17 19:33 09/07/17 19:42 White Blood Count 8.64 K/uL Red Blood Count 3.04 M/uL Hemoglobin 9.5 g/dL Hematocrit 29.7 % Mean Corpuscular Volume 97.7 fL Mean Corpuscular Hemoglobin 31.3 pg Mean Corpuscular Hemoglobin Concent 32.0 g/dl Platelet Count 201 K/uL Mean Platelet Volume 8.6 fL Neutrophils (%) (Auto) 86.4 % Lymphocytes (%) (Auto) 5.6 % Monocytes (%) (Auto) 7.4 % Eosinophils (%) (Auto) 0.0 % Basophils (%) (Auto) 0.1 % Neutrophils # (Auto) 7.47 K/uL Lymphocytes # (Auto) 0.48 K/uL Monocytes # (Auto) 0.64 K/uL Eosinophils # (Auto) 0.00 K/uL Basophils # (Auto) 0.01 K/uL RDW Standard Deviation 55.0 fL RDW Coefficient of Variation 15.4 % Immature Granulocyte % (Auto) 0.5 % Immature Granulocyte # (Auto) 0.04 K/uL Sodium Level 136 mmol/L Potassium Level 4.1 mmol/L Chloride Level 107 mmol/L Carbon Dioxide Level 26 mmol/L Anion Gap 3.0 mmol/L Blood Urea Nitrogen 22 mg/dl Creatinine 0.81 mg/dl Est Creatinine Clear Calc Drug Dose 91.0 ml/min Estimated GFR () 106.6 Estimated GFR (Non- 92.0 BUN/Creatinine Ratio 26.5 Random Glucose 154 mg/dl Calcium Level 8.1 mg/dl Magnesium Level 1.8 mg/dl Blood Gas Sample Site Art Line Bedside Blood Gas pH (LAB) 7.41 Bedside Blood Gas pCO2 (LAB) 50 mmHg Bedside Blood Gas pO2 (LAB) 411 mmHg Bedside Blood Gas HCO3 (LAB) 32 meq/L Bedside Blood Gas Total CO2 33 mEq/l Bedside Blood Gas Base Excess (LAB) 7.0 meq/L Bedside Blood Gas O2 Saturation 100.0 % Diego Test NA Oxygen Delivery Device Ventilator Bedside Oxygen Rate (breaths/min) 14 Blood Gas Minute Ventilation 7.9 Bedside FiO2 100 % Blood Gas Tidal Volume 550 Blood Gas PEEP 5 Diagnostic Results SINGLE VIEW CHEST CLINICAL HISTORY: Enteric tube placement. FINDINGS: An AP, portable, semierect chest radiograph is compared to study performed earlier the same day 09/07/2017 and correlated with PET CT dated 08/15/2017. The examination is degraded by portable technique and patient rotation. An enteric tube has been placed. The tip terminates above the diaphragm. An endotracheal tube is unchanged in position. A surgical drain projects over the right chest. A right-sided chest tube is in place. The cardiomediastinal silhouette is unremarkable. Chronic interstitial thickening is similar to previous. Patchy airspace opacities percent the left lung base and a pleural effusion is suspected. The right lung is grossly clear. No definite pneumothorax is seen. The bony thorax is grossly intact. Extensive subcutaneous emphysema is seen throughout the chest and lower neck. IMPRESSION: 1. An enteric tube has been placed. The tip terminates above the diaphragm. This should be advanced. 2. Additional lines and tubes are unchanged. 3. No definite pneumothorax is seen. 4. Patchy airspace opacities are present at the left lung base and there is a small left pleural effusion. This could represent atelectasis versus an infectious/inflammatory pneumonitis. Clinical correlation will be required. 5. Extensive subcutaneous emphysema is present throughout the chest wall and in the lower neck. Electronically signed by: John Domínguez M.D. 09/07/2017 7:29 PM Dictated Date/Time: 09/07/2017 7:27 PM SINGLE VIEW CHEST CLINICAL HISTORY: Esophagectomy. FINDINGS: An AP, portable, supine chest radiograph is compared to study dated 11/13/2016 and correlated with PET CT dated 08/15/2017. The examination is degraded by portable technique and patient rotation. An endotracheal tube has been placed. The tip of the catheter projects 5.5 cm above the raúl. A surgical drain projects over the right chest. A right-sided chest tube is in place. The cardiomediastinal silhouette is unremarkable. Chronic interstitial thickening is similar to previous. Patchy airspace opacities percent the left lung base and a pleural effusion is suspected. The right lung is grossly clear. No definite pneumothorax is seen. The bony thorax is grossly intact. Extensive subcutaneous emphysema is seen throughout the chest and lower neck. IMPRESSION: 1. An endotracheal tube has been placed. A surgical drain and a right-sided chest tube are noted. See above. 2. No definite pneumothorax is seen. 3. Patchy airspace opacities are present at the left lung base and there is a small left pleural effusion. This could represent atelectasis versus an infectious/inflammatory pneumonitis. Clinical correlation will be required. 4. Extensive subcutaneous emphysema is present throughout the chest wall and in the lower neck. Electronically signed by: John Domínguez M.D. 09/07/2017 7:08 PM Dictated Date/Time: 09/07/2017 7:05 PM Assessment & Plan Reason Critically Ill: Patient is an 67-year-old male who is transferred to the ICU for post-operative management. PLAN: Neuro: * No unilateral abnormalities noted. * Pt opens eyes but does not track or follow directions. * Monitor for changes. * Tylenol ordered q8h * Toradol 15mg q8h Resp: * Pt currently intubated on SIMV settings * 8/500/5/40% * Recent ABG on AC: 7.410/49.9/411/31.6 * Plan to extubate overnight once pt meets extubation criteria * Once extubated: supplemental O2 as needed * Chest tube in place: Monitor outpts * Monitor subcutaneous emphysema CV: * Hemodynamically stable * Goal MAP > 80 per Surgeon * Fluid boluses as MAP suggests * Monitor on Telemetry Fluids/Renal: * I&Os: Positive 2.95L * Jones in place to gravity * Baseline BUN/Cr: 23/0.81 * Repeat labs daily * Monitor electrolytes and replete per protocol ID: * Monitor Fever curve * Check CBC in AM * No leukocytosis noted in perop labs: WBC 3.99 * Intraoperative Abx as noted in HPI * Continue IV Cefazolin q8h x2 GI/Nutrition: * Esophagogastrectomy: POD #0 * NG tube in place: Critical do not manipulate or utilize. * Should be placed to low intermittent suction * J Tube in place: Monitor Outpts * Reglan 10mg q8h with PRN Zofran * NPO Heme/Onc: * No overt signs of gross bleeding * EBL in OR: 250cc * Daily CBC * 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 Anthony on discharge * DVT Prophylaxis: Lovenox 40 daily Endocrine: * Accu-Checks per protocol, started insulin infusion for 2 blood sugars greater than 180 or one greater than 250 * No known thyroid or DM dx Access: Arterial line placed in OR, PIVs in place CCT: 30 Minutes; This time is exclusive of all separately billable procedures. Thank you for involving us in the care of this patient. Please refer to Dr. Fabio García's addendum for further recommendations. I have personally evaluated and examined this patient. I agree with assessment and plan of Yumiko Mendiola PA-C. Plan to extubate once recovered from general anesthesia.
--- NOTE | 2017-09-07 21:44 | OPERATIVE REPORT ---
DATE OF OPERATION: 09/07/2017 PREOPERATIVE DIAGNOSES: 1. Adenocarcinoma distal esophagus. 2. Status post neoadjuvant chemotherapy and radiation. POSTOPERATIVE DIAGNOSES: 1. Adenocarcinoma distal esophagus with extension into the stomach. 2. Status post neoadjuvant chemotherapy and radiation. PROCEDURE: 1. Robotic-assisted laparoscopic and thoracoscopic esophagogastrectomy ([place] intrathoracic esophagogastrostomy). 2. Insertion of a jejunostomy tube. 3. Injection of pylorus with Botox. SURGEON: Pascual Queen MD. BARGE CAPTAIN: LAUREL Taylor. ANESTHESIA: General anesthesia with endotracheal intubation using double lumen tube. SPECIFICS OF PROCEDURE AND FINDINGS: This is a 67-year-old male who had some medical issues including some mild cognitive dysfunction and I have known him for several months. He was found to have an adenocarcinoma of the distal esophagus and underwent chemotherapy and radiation and actually did quite well. I did a staging laparoscopy on him a few months ago and his peritoneal washings were negative. I then felt that he would be a candidate for surgery after his PET scan had improved so much. On 09/07/2017, the patient was brought to the operating room and underwent a robot-assisted laparoscopic and robot-assisted thoracoscopic esophagogastrectomy. The stomach was easily mobilized. We did run into a problem with the J tube, I had to open his upper abdomen in order to place it properly. He had plenty of gastric length. I did not feel any masses in his GE junction. We then closed and turned him and did a thoracoscopic takedown of the esophagus that went very nicely. I divided the azygos vein. An intrathoracic esophagogastrostomy was performed with a 28 mm EEA stapler at the level just above the azygos vein. I was surprised that the margins of the mass were positive along the stomach. I was able to take more of the stomach after I had performed the EEA anastomosis and these margins were negative. These were along our original staple line. He tolerated it well. DESCRIPTION OF PROCEDURE: The patient brought to the operating room, laid in supine position. General anesthesia induced and endotracheal intubation was performed. Stuart Altamirano was the physician assistant professor of communication and was the first sampler. He was instrumental in the case and was there for its entirety. The patient was induced under general anesthesia and double lumen tube placed. He was left in the supine position and then after appropriate timeout have been called and prophylactic antibiotics had been given, I made 6 incisions in his abdomen: One was a 12 mm incision above his umbilicus. He had two 5 mm incisions made laterally, one on the right to hold the liver retractor and the other on the left as a retractor. Then I put two 8 mm ports in the midclavicular line intercostal margin and one 12 mm port in the right paramedian area for the assistant professor of communication's port. Upon entering, he had very little in the way of adhesions. We dissected out along the lesser curvature quite easily. I identified both diaphragmatic crura quite nicely and dissected the stomach off of the posterior attachments and mobilized the distal esophagus quite easily. We were using the Harmonic scalpel and a bipolar dissector for this. I then dissected out the left gastric artery. An Endo-CARLITA stapler was fired in and I freed up the rest of the lesser curvature. I then identified the gastroepiploic artery. The artery actually ended without anastomosing to the left gastroepiploic. It did extend pretty far out on the greater curvature; however and I felt we would have enough blood supply to support the rozina-esophagus. I did leave a strip of omentum with 2 vascular arcades as I took down the greater curvature. A Harmonic scalpel was used to divide the short gastrics. We freed up the entire greater curvature. The stomach was freed from its retrogastric attachments. After the Phi maneuver had been done, I then used 100 units of Botox injected in 4 quadrants around the pylorus. Then using an Endo-CARLITA stapler, I started the lesser curvature and created a gastric tube. I made the gastric conduit about 4-5 cm in width. I then had a long gastric tube. It was a bit dusky at the tip, but it appeared viable. I then sutured the tip to the staple line and then put the jejunostomy tube in. We attempted to do this with the needle; however, the needle and the dilator went in the jejunum but then went out of it and it came out back of the jejunum. The guidewire and then the dilator were placed. These were then removed. I made a small incision from below the xiphoid to above the umbilicus in the midline. I simply extended the 12 mm incision we made before. I then cut down and repaired the jejunotomy that had been made inadvertently with 3-0 Vicryl in a running Alphonso fashion and then used 3-0 silks in an interrupted Lembert fashion. I then placed the 14 [place] Jones into the jejunotomy properly and put a 3-0 silk pursestring around this and tied it. I sutured this to the peritoneal wall where it was exiting from just lateral to the rectus muscle at the level of the umbilicus on the left. I then used several 3-0 silks in an interrupted fashion to suture this to the underlying peritoneal wall. Then #1 Maxon was used to close this incision and the 12 mm incisions were closed with #1 Maxon to close the fascial layers and 4-0 Biosyn was used in a running subcuticular fashion to approximate all of the wound edges. A cap was placed in the jejunostomy wound. After the antimicrobial dressing in place, the patient was then undraped. He was redosed with antibiotics. He was then turned into left lateral decubitus position and his right chest was prepped and draped in usual sterile fashion. Five separate incisions were made. A 5 mm incision was made about the 9th interspace in the posterior axillary line. Two 8 mm incisions were made, 1 at about the third interspace and 1 at about at the eighth interspace at the tip of scapula. Camera port was placed and also an assistant professor of communication's port. The camera port was12 mm port as was the assistant professor of communication's port. He had very nice anatomy. There were no adhesions. There was no evidence of intrathoracic spread. I was quite meticulous in taking down the pleura both laterally and medially and I identified the small vessels from the aorta quite nicely and we were able to take these down. I took the pleura off of the diaphragm and then as I was very meticulous upon coming up taking down the inferior pulmonary ligament. Several level 8 nodes as well as level 7 nodes and a level 4 node were taken. I really did not see a level 2 node. I divided the azygos vein with the stapler and carefully looked at the posterior membranous trachea and I was able to separate the esophagus quite nicely from this. I then was able to get around the esophagus and after freeing this up nicely, I pulled the esophagus with the stomach and the attached gastric neoesophagus with it through the hiatus. I cut the suture. Care was taken to avoid twisting the conduit. This conduit was sutured to the diaphragm.I then used shear to cut the esophagus just above the level of the azygos vein. The esophagus looked quite good here. I then delivered the distal esophagus and stomach off the field and asked for frozen sections of the staple line to be performed. I then used a double pursestring around the anvil in the esophagus distally. This was from a 28 mm EEA stapler. I then pulled the tube and found we had fair amount of excess stomach. I was able to pull this gastrostomy opening I had made with Harmonic scalpel around over the EEA stapler and then fired the stapler near the greater curvature. The stomach was nice and pink at this point. I then fired a stapler and this came out very nicely with 2 rings of tissue. There was no bleeding and there was no tension. I then got a call that the staple line was positive. I then pulled the staple line up and I was able to get another couple of centimeters and still leave myself with a reasonable gastric tube. This had the two fold affect of closing the gastrotomy and removing more of the stomach at the positive staple line. I was quite relieved to see that the frozen sections saw no evidence of cancer at the new staple line. The chest was irrigated out. There was no lung injuries and no air leak. 266 mg of Exparel were used and 80 mL of normal saline to anesthetize the second to the eleventh rib without difficulty. A Didier-Maldonado drain was laid close to the anastomotic area and brought through the 5 mm posterior port. A 24-Ugandan chest tube was placed through one of the 8 mm ports and directed towards the apex. This was held in place with heavy silk suture. The assistant professor of communication's port had been expanded a bit and a wound protector had been placed in order to remove the specimen with an Endobag and then to put the EEA stapler. After irrigating out the chest and seeing no evidence of any bleeding, we then closed by using 0 Vicryl to close the muscle layers of the 8 mm port and the assistant professor of communication's port and then 4-0 Monocryl was used in running subcuticular fashion to approximate the wound edges. He tolerated it well and was transported to the intensive care unit in stable condition. I attest to the content of the Intraoperative Record and any orders documented therein. Any exceptions are noted below. MTDD
[2017-09-07] MEDS: METOCLOPRAMIDE HCL INJ 5 MG/ML 2 ML VIAL IV. SCH (22:51)
[2017-09-08] VITALS (27 sets, daily range): BP systolic 109–159; BP diastolic 55–96; PULSE 70–98; TEMP 36.6–36.8; O2SAT 91–100
[2017-09-08] MEDS: CEFAZOLIN IV 2,000 MG in SYRINGE 0 ML IV SCH ×2 (00:09→09:20)
--- NOTE | 2017-09-08 00:13 | Critical Care Progress Note ---
Critical Care Progress Note Date of Service Sep 07, 2017. Critical Care Progress Note Pt was alert and following commands and met parameters for extubation. Pt had been compensating over his SIMV vent settings for some time. A repeat ABG was 7.417/39.4/86/25.6. Pt was extubated to 10L aerosol face mask with 40% FIO2 at 2346 without complication. Myself and nursing discussed the importance of his NG tube with him and his restraints were removed at the same. time. Pts only complaint consists of back stiffness that is tolerable.
[2017-09-08] MEDS: KETOROLAC TROMETHAMINE 15 MG/ML VIAL IV. SCH ×3 (03:20→20:04)
[2017-09-08] MEDS: ACETAMINOPHEN IV 1,000 MG in EMPTY BAG 0 ML IV SCH ×3 (03:21→20:05)
[2017-09-08] MEDS: D5W AND 1/2NSS 1,000 ML IV SCH ×2 (05:25→15:00)
[2017-09-08] MEDS: METOCLOPRAMIDE HCL INJ 5 MG/ML 2 ML VIAL IV. SCH ×2 (05:33→13:41)
[2017-09-08 05:37] LABS: EOS % 0.3 %; EOS ABS # 0.02 K/uL (0-0.5); HEMATOCRIT 32.2 % (42-52); HEMOGLOBIN 10.5 g/dL (14.0-18.0); IG# 0.03 K/uL (0.00-0.02); LYMPH % 5.6 %; LYMPH ABS # 0.41 K/uL (1.2-3.4); MEAN CELL VOLUME 96.1 fL (80-100); MEAN CORPUSCULAR HEMOGLOBIN 31.3 pg (25-34); MEAN CORPUSCULAR HGB CONC 32.6 g/dl (32-36); MEAN PLATELET VOLUME 8.7 fL (7.4-10.4); MONO % 11.5 %; MONO ABS # 0.85 K/uL (0.11-0.59); NEUT % 82.2 %; NEUT ABS # 6.05 K/uL (1.4-6.5); PLATELET COUNT 249 K/uL (130-400); RED CELL DISTRIBUTION WIDTH CV 15.2 % (11.5-14.5); RED CELL DISTRIBUTION WIDTH SD 53.8 fL (36.4-46.3); WHITE BLOOD COUNT 7.36 K/uL (4.8-10.8)
--- NOTE | 2017-09-08 06:53 | DIAGNOSTIC IMAGING REPORT ---
CHEST ONE VIEW PORTABLE CLINICAL HISTORY: esophagectomy COMPARISON STUDY: 09/07/2017 FINDINGS: There is a nasogastric tube the tip of which projects above the diaphragmatic hiatus. The heart is normal in size. There are improving patchy left basal airspace opacities. Right-sided chest tube remains unchanged in position. There is no pneumothorax. The endotracheal tube has been removed. There is a right-sided surgical drain present. There is bilateral subcutaneous emphysema. There is free intraperitoneal air. IMPRESSION: 1. Interval removal of the endotracheal tube 2. Free intraperitoneal air, likely related to recent surgery 3. Enteric tube with its tip above the level of the diaphragmatic hiatus 4. Persistent but improving left basal airspace opacities Electronically signed by: Howie Snow M.D. 09/08/2017 6:52 AM Dictated Date/Time: 09/08/2017 6:49 AM
[2017-09-08 06:55] LABS: BLOOD UREA NITROGEN 24 mg/dl (7-18); CALCIUM 8.3 mg/dl (8.5-10.1); CARBON DIOXIDE 25 mmol/L (21-32); GLUCOSE 138 mg/dl (70-99); PHOSPHORUS 3.2 mg/dl (2.5-4.9); SODIUM 135 mmol/L (136-145)
--- NOTE | 2017-09-08 07:47 | SURGERY PROGRESS NOTE ---
DATE: 09/08/2017 DATE: 09/08/2017 Mr. Stack looks great today. He had a robotic assisted esophagogastrectomy yesterday. He has been ambulating in the hallways. He is off the ventilator. He is on room air. His vital signs have been stable. He actually looks quite good. He has very good pain control. He is a bit confused but has some underlying cognitive dysfunction. His lungs sound very good. He has a regular rate and rhythm of his heart. Oral mucosa is moist. His NG has some dark drainage, but is very little. His abdomen is nice and soft. He is really nontender. He has sequential compression devices in place. His Jones is draining clear urine. His urine output has been quite good. He put out a total of 800 mL since surgery, but only 275 over the last shift, so we are going to keep his IV going. In reviewing his labs, his white count is normal at 7316. His hemoglobin is stable at 10.5. His electrolytes look good with sodium of 135, bicarb 25. BUN and creatinine of 24 and 0.9. Reveal of his blood gas reveals pH 7.42, pCO2 39, pO2 86 with a bicarb of 26. That was on the ventilator late last night. Reviewing his x-ray shows improvement since last night. He has no infiltrates really. He has a very tiny left pleural effusion. NG tube is right where I wanted it, at the esophageal hiatus. His Didire-Maldonado drain is in place. It did drain about 140 mL of a sero-bloody fluid. ASSESSMENT AND PLAN: Postoperative day #1, status post robotic assisted minimally invasive esophagectomy. The patient looks quite good. We are going to keep him in the ICU for another day and discontinue his arterial line. If his urine output picks up I may remove his Jones catheter later today. We are also going to start J-tube feedings at a very low level today. MARIA ELENA
[2017-09-08] MEDS ORDERED: INFLUENZA ADMINISTRATION CHARGE ONE (08:15)
[2017-09-08] MEDS ORDERED: FAMOTIDINE IV INJ 20 MG in DEXTROSE 5% 100ML 100 ML IV SCH (08:15)
[2017-09-08] MEDS ORDERED: INFLUENZA VACCINE HIGH DOSE 65+ 0.5 ML SYR IM. ONE (08:15)
[2017-09-08 08:40] LABS: POTASSIUM 3.7 mmol/L (3.5-5.1)
[2017-09-08] MEDS ORDERED: PEPTAMEN 1.5 CAL 1000ML BAG JT PRN (09:15)
[2017-09-08] MEDS: FAMOTIDINE IV INJ 20 MG in SYRINGE 3 ML IV SCH ×2 (09:18→20:05)
[2017-09-08] MEDS: ENOXAPARIN 40 MG/0.4 ML SYR SQ SCH (09:19)
--- NOTE | 2017-09-08 09:35 | Critical Care Progress Note ---
Critical Care Progress Note Date of Service Sep 08, 2017. ICU Day ICU Day Number: [address] García Subjective Patient is resting comfortably in bed this morning in no acute distress. His only complaint this morning is back discomfort that improved with movement. He was able to walk the hallways overnight with no complications and has been getting out of bed. He denies any fevers, chills, neck pain, chest pain, shortness of breath, abdominal pain, nausea, vomiting, or any other acute complaints. Objective GENERAL: Awake, alert, well-appearing, in no distress HENT: Normocephalic, atraumatic. NG tube in place with tape anchoring over nose EYES: Normal conjunctiva. Sclera non-icteric. NECK: Supple. No nuchal rigidity. Mild subcutaneous emphysema noted RESPIRATORY: Clear to auscultation. CARDIAC: Regular rate, normal rhythm. Extremities warm and well perfused. Pulses equal. ABDOMEN: Soft, non-distended. No tenderness to palpation. J-tube over LUQ of abdomen RECTAL: Deferred. MUSCULOSKELETAL: Chest examination reveals no tenderness. Chest tube over right side of the chest draining serosanguineous fluid LOWER EXTREMITIES: Calves are equal size bilaterally and non-tender. No edema. SCDs NEURO: Normal sensorium. No sensory or motor deficits noted. SKIN: No rash or jaundice noted. Current SOFA Score SOFA Score Response (Comments) Value Platelets (x10) > 150 0 Bilirubin (mg/dL) < 1.2 0 [place] Coma Score 15 0 Level of Hypotension No Hypotension 0 Creatinine (mg/dL) < 1.2 0 Total 0 Assessment & Plan Patient is a 67 year old male with esophageal cancer s/p chemotherapy and radiation that is day 1 s/p Robotic Assisted Esophagogasterctomy Neuro: - CAM ICU Negative - Alert & Oriented with baseline mental status - Tylenol ordered q8h - Toradol 15mg q8h Resp: - Extubated overnight at 1150 and saturating well on room air - Most recent ABG prior to extubation 7.42/39/86/26 - Right Sided Chest Tube drained 26ml overnight --> Continue to monitor output - Subcutaneous Emphysema Improving CV: - Hemodynamically stable - Goal MAP > [address] Queen to maintain vascular supply to stomach --> Fluid boluses as MAP suggests but avoid alpha blocking agents - Monitor on Telemetry Fluids/Renal: - I&Os: + 3L - Pereira in place to gravity --> If Urine Output improves throughout the day, will remove pereira this afternoon - Cr 0.9 --> Stable at baseline - Monitor electrolytes and replete per protocol ID: - Intraoperative 2 doses of IV Cefazolin q8h --> 1 dose received - Daily CBC/BMP GI/Nutrition: - Esophagogastrectomy: POD #1 - NG tube in place: Critical do not manipulate or utilize --> Goal to not have any distension of stomach distal to anastomosis to maintain integrity of sutures * Should be placed to low intermittent suction - J Tube in place --> Will provide nutrition based on recommendation of executive director sheltered workshop with initial feeds of 20mls/hr - Reglan 10mg q8h with PRN Zofran - NPO Heme/Onc: - H/H stable - Minimal blood loss in OR - Daily CBC - 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 Anthony on discharge - DVT Prophylaxis: Lovenox 40 daily Endocrine: - Accu-Checks per protocol, started insulin infusion for 2 blood sugars greater than 180 or one greater than 250 - No known thyroid or DM dx DVT PPX - Lovenox GI PPX: - Pepcid Code Status: - Full Resuscitation Resident Physician Supervision Note: Dr. Madrid was resident physician during care of patient. I separately evaluated patient and did history and exam. I discussed the case with the resident and generally agree with the findings and plan. Trickle tube feeding. NG critical to remain in place. Aggressive PT/OT Documented By: Fabio García DO Consults & Procedures Consultants: None Procedures: Extubation Data Medications: Current Inpatient Medications Medications (Trade) Dose Ordered Sig/Yo Route Start Time Stop Time Status Last Admin Dose Admin Enoxaparin Sodium (Lovenox Inj) 40 mg DAILY SQ 09/08/17 09:00 10/08/17 08:59 Dextrose/Sodium Chloride 1,000 ml @ 100 mls/hr Q10H IV 09/07/17 19:00 10/07/17 18:59 09/08/17 05:25 100 MLS/HR Ondansetron HCl (Zofran Inj) 4 mg Q4H PRN IV 09/07/17 18:30 10/07/17 18:29 Ketorolac Tromethamine (Toradol Inj) 15 mg Q8H IV. 12/6/17 19:00 09/09/17 11:01 09/08/17 03:20 15 MG Metoclopramide HCl (Reglan Inj) 10 mg Q8 IV. 09/07/17 22:00 09/08/17 21:59 09/08/17 05:33 10 MG Morphine Sulfate (MoRPHine SULFATE INJ) Q1H PRN IV 09/07/17 18:30 09/21/17 18:29 Acetaminophen 1000 mg/Empty Bag 100 ml @ 400 mls/hr Q8H IV 09/07/17 19:00 10/07/17 18:59 09/08/17 03:21 400 MLS/HR Famotidine 20 mg/ Syringe 5 ml @ 2.5 mls/min Q12H IV 09/08/17 09:00 10/08/17 08:59 Vital Signs: Date Time Temp Pulse Resp B/P (MAP) Pulse Ox O2 Delivery O2 Flow Rate FiO2 09/08/17 08:30 74 16 123/75 (91) 98 Nasal Cannula 2.0 Humidified Oxygen 09/08/17 08:17 97 Nasal Cannula 2.0 Humidified Oxygen 09/08/17 08:00 74 12 121/76 (91) 96 09/08/17 07:30 36.8 79 20 128/79 (95) 97 Nasal Cannula 2.0 Humidified Oxygen 09/08/17 07:00 70 13 110/68 (82) 97 09/08/17 05:01 96 Room Air 09/08/17 04:00 Nasal Cannula 2.0 Humidified Oxygen 09/08/17 04:00 71 13 114/76 (89) 97 Nasal Cannula 2.0 117/58 (77) Humidified Oxygen 09/08/17 03:30 74 16 138/90 (105) 99 137/68 (95) 09/08/17 03:00 70 11 119/76 (79) 98 114/55 (86) 09/08/17 02:30 70 10 123/79 (90) 98 119/59 (86) 09/08/17 02:00 71 12 125/80 (89) 98 120/58 (84) 09/08/17 01:30 72 11 130/80 (89) 98 123/59 (87) 09/08/17 01:00 70 15 128/82 (87) 100 123/59 (86) 09/08/17 00:30 80 16 136/87 (101) 100 131/65 (94) 09/08/17 00:01 100 Humidified Oxygen 10.0 40 09/08/17 00:00 36.6 73 16 134/87 (102) 100 131/65 (93) 09/07/17 23:46 40 09/07/17 23:36 82 10 138/89 (91) 99 127/64 (106) 09/07/17 23:14 40 09/07/17 23:00 69 9 122/78 (90) 99 122/64 (89) 09/07/17 22:30 69 9 137/89 (94) 100 130/67 (99) 09/07/17 22:00 78 10 134/90 (101) 99 142/75 (104) 09/07/17 21:30 69 8 123/83 (96) 97 120/61 (88) 09/07/17 21:00 100 Mechanical Ventilator 40 09/07/17 21:00 40 09/07/17 21:00 36.3 69 6 136/87 (98) 100 120/56 (87) 09/07/17 20:43 40 09/07/17 20:30 67 7 112/69 (79) 100 109/48 (73) 09/07/17 20:00 36.3 69 10 127/81 (94) 100 124/56 (83) 09/07/17 19:40 70 14 134/84 (95) 100 124/61 (91) 09/07/17 19:30 73 14 131/84 (98) 100 128/61 (88) 09/07/17 19:15 78 14 127/88 (101) 100 128/62 (91) 09/07/17 19:10 36.3 72 14 119/81 (94) 100 113/57 (76) 09/07/17 19:10 36.3 73 14 119/81 100 Mechanical Ventilator 100 09/07/17 19:00 83 14 119/80 100 Mechanical Ventilator 100 Arterial Line 09/07/17 18:50 74 14 111/75 100 Mechanical Ventilator 100 Arterial Line 09/07/17 18:47 36.3 74 14 114/59 100 Mechanical Ventilator 100 09/07/17 18:30 100 Laboratory Results: Last 24 Hours Test 09/07/17 10:13 09/07/17 11:32 09/07/17 13:15 09/07/17 16:03 Bedside Blood Gas pH (LAB) 7.18 7.17 7.19 7.37 Bedside Blood Gas pCO2 (LAB) 76 mmHg 73 mmHg 61 mmHg 46 mmHg Bedside Blood Gas pO2 (LAB) 377 mmHg 96 mmHg 148 mmHg 75 mmHg Bedside Blood Gas HCO3 (LAB) 28 meq/L 26 meq/L 24 meq/L 27 meq/L Bedside Blood Gas Total CO2 31 mEq/l 29 mEq/l 26 mEq/l 28 mEq/l Bedside Blood Gas Base Excess (LAB) 0.0 meq/L -2.0 meq/L -4.0 meq/L 1.0 meq/L Bedside Blood Gas O2 Saturation 100.0 % 95.0 % 99.0 % 94.0 % Test 09/07/17 19:33 09/07/17 19:42 09/07/17 21:58 09/07/17 23:33 White Blood Count 8.64 K/uL Red Blood Count 3.04 M/uL Hemoglobin 9.5 g/dL Hematocrit 29.7 % Mean Corpuscular Volume 97.7 fL Mean Corpuscular Hemoglobin 31.3 pg Mean Corpuscular Hemoglobin Concent 32.0 g/dl Platelet Count 201 K/uL Mean Platelet Volume 8.6 fL Neutrophils (%) (Auto) 86.4 % Lymphocytes (%) (Auto) 5.6 % Monocytes (%) (Auto) 7.4 % Eosinophils (%) (Auto) 0.0 % Basophils (%) (Auto) 0.1 % Neutrophils # (Auto) 7.47 K/uL Lymphocytes # (Auto) 0.48 K/uL Monocytes # (Auto) 0.64 K/uL Eosinophils # (Auto) 0.00 K/uL Basophils # (Auto) 0.01 K/uL RDW Standard Deviation 55.0 fL RDW Coefficient of Variation 15.4 % Immature Granulocyte % (Auto) 0.5 % Immature Granulocyte # (Auto) 0.04 K/uL Sodium Level 136 mmol/L Potassium Level 4.1 mmol/L Chloride Level 107 mmol/L Carbon Dioxide Level 26 mmol/L Anion Gap 3.0 mmol/L Blood Urea Nitrogen 22 mg/dl Creatinine 0.81 mg/dl Est Creatinine Clear Calc Drug Dose 91.0 ml/min Estimated GFR () 106.6 Estimated GFR (Non- 92.0 BUN/Creatinine Ratio 26.5 Random Glucose 154 mg/dl Calcium Level 8.1 mg/dl Magnesium Level 1.8 mg/dl Blood Gas Sample Site Art Line Art Line Bedside Blood Gas pH (LAB) 7.41 7.42 Bedside Blood Gas pCO2 (LAB) 50 mmHg 39 mmHg Bedside Blood Gas pO2 (LAB) 411 mmHg 86 mmHg Bedside Blood Gas HCO3 (LAB) 32 meq/L 26 meq/L Bedside Blood Gas Total CO2 33 mEq/l 27 mEq/l Bedside Blood Gas Base Excess (LAB) 7.0 meq/L 1.0 meq/L Bedside Blood Gas O2 Saturation 100.0 % 97.0 % Diego Test NA NA Oxygen Delivery Device Ventilator Ventilator Bedside Oxygen Rate (breaths/min) 14 13 Blood Gas Minute Ventilation 7.9 6.5 Bedside FiO2 100 % 40 % Blood Gas Tidal Volume 550 500 Blood Gas PEEP 5 5 Bedside Glucose 176 mg/dl Bl Gas Pressure Support Ventilation 0 Test 09/08/17 03:45 09/08/17 05:21 09/08/17 07:54 Bedside Glucose 144 mg/dl White Blood Count 7.36 K/uL Red Blood Count 3.35 M/uL Hemoglobin 10.5 g/dL Hematocrit 32.2 % Mean Corpuscular Volume 96.1 fL Mean Corpuscular Hemoglobin 31.3 pg Mean Corpuscular Hemoglobin Concent 32.6 g/dl Platelet Count 249 K/uL Mean Platelet Volume 8.7 fL Neutrophils (%) (Auto) 82.2 % Lymphocytes (%) (Auto) 5.6 % Monocytes (%) (Auto) 11.5 % Eosinophils (%) (Auto) 0.3 % Basophils (%) (Auto) 0.0 % Neutrophils # (Auto) 6.05 K/uL Lymphocytes # (Auto) 0.41 K/uL Monocytes # (Auto) 0.85 K/uL Eosinophils # (Auto) 0.02 K/uL Basophils # (Auto) 0.00 K/uL RDW Standard Deviation 53.8 fL RDW Coefficient of Variation 15.2 % Immature Granulocyte % (Auto) 0.4 % Immature Granulocyte # (Auto) 0.03 K/uL Prothrombin Time 10.9 SECONDS Prothromb Time International Ratio 1.0 Sodium Level 135 mmol/L Potassium Level mmol/L 3.7 mmol/L Chloride Level 105 mmol/L Carbon Dioxide Level 25 mmol/L Anion Gap 5.0 mmol/L Blood Urea Nitrogen 24 mg/dl Creatinine 0.90 mg/dl Est Creatinine Clear Calc Drug Dose 84.9 ml/min Estimated GFR () 102.1 Estimated GFR (Non- 88.1 BUN/Creatinine Ratio 26.7 Random Glucose 138 mg/dl Calcium Level 8.3 mg/dl Phosphorus Level 3.2 mg/dl Magnesium Level mg/dl 2.0 mg/dl Resident Tracking Resident Involvement: Resident Care Provided Care Provided: Adult [facility] Medicine
--- NOTE | 2017-09-08 10:16 | Anesthesiology Progress Note ---
Anesthesia Post Op Note Date & Time Sep 08, 2017 at 10:15 Vital Signs Vital Signs Past 12 Hours Date Time Temp Pulse Resp B/P (MAP) Pulse Ox O2 Delivery O2 Flow Rate FiO2 09/08/17 08:30 74 16 123/75 (91) 98 Nasal Cannula 2.0 Humidified Oxygen 09/08/17 08:17 97 Nasal Cannula 2.0 Humidified Oxygen 09/08/17 08:00 74 12 121/76 (91) 96 09/08/17 07:30 36.8 79 20 128/79 (95) 97 Nasal Cannula 2.0 Humidified Oxygen 09/08/17 07:00 70 13 110/68 (82) 97 09/08/17 05:01 96 Room Air 09/08/17 04:00 Nasal Cannula 2.0 Humidified Oxygen 09/08/17 04:00 71 13 114/76 (89) 97 Nasal Cannula 2.0 117/58 (77) Humidified Oxygen 09/08/17 03:30 74 16 138/90 (105) 99 137/68 (95) 09/08/17 03:00 70 11 119/76 (79) 98 114/55 (86) 09/08/17 02:30 70 10 123/79 (90) 98 119/59 (86) 09/08/17 02:00 71 12 125/80 (89) 98 120/58 (84) 09/08/17 01:30 72 11 130/80 (89) 98 123/59 (87) 09/08/17 01:00 70 15 128/82 (87) 100 123/59 (86) 09/08/17 00:30 80 16 136/87 (101) 100 131/65 (94) 09/08/17 00:01 100 Humidified Oxygen 10.0 40 09/08/17 00:00 36.6 73 16 134/87 (102) 100 131/65 (93) 09/07/17 23:46 40 09/07/17 23:36 82 10 138/89 (91) 99 127/64 (106) 09/07/17 23:14 40 09/07/17 23:00 69 9 122/78 (90) 99 122/64 (89) 09/07/17 22:30 69 9 137/89 (94) 100 130/67 (99) Notes Mental Status: alert / awake / arousable, participated in evaluation Pt Amnestic to Procedure: Yes Nausea / Vomiting: adequately controlled Pain: adequately controlled Airway Patency, RR, SpO2: stable & adequate BP & HR: stable & adequate Hydration State: stable & adequate Anesthetic Complications: no major complications apparent
[2017-09-09] VITALS (19 sets, daily range): BP systolic 135–165; BP diastolic 81–109; PULSE 82–109; TEMP 36.5–36.9; O2SAT 93–99
[2017-09-09] MEDS: ACETAMINOPHEN IV 1,000 MG in EMPTY BAG 0 ML IV SCH ×3 (02:08→18:20)
[2017-09-09] MEDS: KETOROLAC TROMETHAMINE 15 MG/ML VIAL IV. SCH ×2 (02:09→10:06)
[2017-09-09 06:53] LABS: HEMATOCRIT 33.6 % (42-52); HEMOGLOBIN 10.7 g/dL (14.0-18.0); MEAN CELL VOLUME 97.7 fL (80-100); MEAN CORPUSCULAR HEMOGLOBIN 31.1 pg (25-34); MEAN CORPUSCULAR HGB CONC 31.8 g/dl (32-36); MEAN PLATELET VOLUME 8.8 fL (7.4-10.4); PLATELET COUNT 259 K/uL (130-400); RED CELL DISTRIBUTION WIDTH CV 15.5 % (11.5-14.5); RED CELL DISTRIBUTION WIDTH SD 54.9 fL (36.4-46.3); WHITE BLOOD COUNT 10.41 K/uL (4.8-10.8)
--- NOTE | 2017-09-09 06:57 | DIAGNOSTIC IMAGING REPORT ---
CHEST ONE VIEW PORTABLE CLINICAL HISTORY: s/p esophagectomy COMPARISON STUDY: 09/08/2017 FINDINGS: The cardiac and mediastinal contours remain stable. There is persistent subcutaneous emphysema. Surgical drain projects of the right thorax unchanged from the prior study. Right-sided chest tube remains unchanged in position. There is no pneumothorax. There is a nasogastric tube, the tip which projects above the diaphragmatic hiatus. There is persistent free intraperitoneal air. There are progressive bibasal airspace opacities, pneumonia versus atelectasis.[ IMPRESSION: 1. Progressive bibasal airspace opacities 2. Persistent free intraperitoneal air Electronically signed by: Howie Snow M.D. 09/09/2017 6:55 AM Dictated Date/Time: 09/09/2017 6:54 AM
[2017-09-09 07:20] LABS: CALCIUM 8.7 mg/dl (8.5-10.1); CREATININE 0.86 mg/dl (0.60-1.40); POTASSIUM 3.6 mmol/L (3.5-5.1)
[2017-09-09 07:23] LABS: PHOSPHORUS 1.8 mg/dl (2.5-4.9)
[2017-09-09] MEDS ORDERED: POTASSIUM PHOS 3 MMOL/1 ML INFUSION IV STA (07:36)
[2017-09-09] MEDS: ENOXAPARIN 40 MG/0.4 ML SYR SQ SCH (07:41)
[2017-09-09] MEDS: FAMOTIDINE IV INJ 20 MG in SYRINGE 3 ML IV SCH ×2 (07:41→20:33)
[2017-09-09] MEDS ORDERED: POTASSIUM PHOSPHATE INJ 21 MMOL in SODIUM CHLORIDE 0.9% 500ML 500 ML IV ONE (08:00)
[2017-09-09] MEDS ORDERED: TAMSULOSIN HCL 0.4 MG CAP PO ONE (08:15)
--- NOTE | 2017-09-09 09:14 | Critical Care Progress Note ---
Critical Care Progress Note Date of Service Sep 09, 2017. ICU Day ICU Day Number: [address] García Subjective Patient resting comfortably in bed this morning in no acute distress. Denies any chest discomfort, shortness of breath, abdominal pain, neck pain, bleeding, fatigue, fever, chills, or any other acute complaints. Objective GENERAL: Awake, alert, well-appearing, in no distress HENT: Normocephalic, atraumatic. NG tube in place with tape anchoring over nose EYES: Normal conjunctiva. Sclera non-icteric. NECK: Supple. No nuchal rigidity. Mild subcutaneous emphysema noted RESPIRATORY: Clear to auscultation. CARDIAC: Regular rate, normal rhythm. Extremities warm and well perfused. Pulses equal. ABDOMEN: Soft, non-distended. No tenderness to palpation. J-tube over LUQ of abdomen RECTAL: Deferred. MUSCULOSKELETAL: Chest examination reveals no tenderness. Chest tube over right side of the chest draining serosanguineous fluid LOWER EXTREMITIES: Calves are equal size bilaterally and non-tender. No edema. SCDs NEURO: Normal sensorium. No sensory or motor deficits noted. SKIN: No rash or jaundice noted. Current SOFA Score SOFA Score Response (Comments) Value Platelets (x10) > 150 0 Bilirubin (mg/dL) < 1.2 0 [place] Coma Score 15 0 Level of Hypotension No Hypotension 0 Creatinine (mg/dL) < 1.2 0 Total 0 Assessment & Plan Patient is a 67 year old male with esophageal cancer s/p chemotherapy and radiation that is day 2 s/p Robotic Assisted Esophagogastrectomy Neuro: - CAM ICU Negative - Alert & Oriented with baseline mental status - Tylenol ordered q8h - Toradol 15mg q8h Resp: - CXR 09/09: 1) Progressive bibasilar airspace opacities 2) Persistent free intraperitoneal air - Currently on room air with good oxygen saturation - Extubated evening on 09/07 after surgery - Most recent ABG prior to extubation 7.42/39/86/26 - Right Sided Chest Tube drained 40cc overnight - Subcutaneous Emphysema Improving CV: - Hemodynamically stable - Goal MAP > [address] Queen to maintain vascular supply to stomach --> Fluid boluses as MAP suggests but avoid alpha blocking agents - Monitor on Telemetry Fluids/Renal: - Bladder scan overnight revealed 450cc urine, voided 150cc but was straight catheterized afterwards - Patient is s/p prostatectomy so no further straight catheterizing --> If continued difficulty voiding this afternoon with place Jones Catheter - Amlodipine 5mg QAM added to assist with urine output - Urology consulted due to voiding difficulty and previous history of prostatectomy - I&Os: + 5L - Phosphate - 1.8 --> 21 mmol KPhos supplement - Cr 0.8 --> Stable at baseline - Monitor electrolytes and replete per protocol ID: - Intraoperative 2 doses of IV Cefazolin q8h completed - Daily CBC/BMP GI/Nutrition: - Esophagogastrectomy: POD #2 - NG tube in place: Critical do not manipulate or utilize --> Goal to not have any distension of stomach distal to anastomosis to maintain integrity of sutures * Should be placed to low intermittent suction - J Tube in place --> Peptamen --> Increase feeds to 30ml/hr - Reglan 10mg q8h with PRN Zofran - NPO Heme/Onc: - H/H stable - Minimal blood loss in OR - Daily CBC - 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 Anthony on discharge - DVT Prophylaxis: Lovenox 40 daily Endocrine: - Accu-Checks per protocol, started insulin infusion for 2 blood sugars greater than 180 or one greater than 250 - No known thyroid or DM dx DVT PPX - Lovenox GI PPX: - Pepcid Code Status: - Full Resuscitation Resident Physician Supervision Note: Dr. Madrid was resident physician during care of patient. I separately evaluated patient and did history and exam. I discussed the case with the resident and generally agree with the findings and plan. discussed with Dr. Queen. Stable for downgrade. Started flomax for antihypertensive and urinary retention. Initially considered norvasc, however, changed to flomax. Documented By: Fabio García DO Consults & Procedures Consultants: None Procedures: Extubation Data Medications: Current Inpatient Medications Medications (Trade) Dose Ordered Sig/Yo Route Start Time Stop Time Status Last Admin Dose Admin Enoxaparin Sodium (Lovenox Inj) 40 mg DAILY SQ 09/08/17 09:00 10/08/17 08:59 09/09/17 07:41 40 MG Dextrose/Sodium Chloride 1,000 ml @ 100 mls/hr Q10H IV 09/07/17 19:00 10/07/17 18:59 09/08/17 15:00 100 MLS/HR Ondansetron HCl (Zofran Inj) 4 mg Q4H PRN IV 09/07/17 18:30 10/07/17 18:29 Ketorolac Tromethamine (Toradol Inj) 15 mg Q8H IV. 09/07/17 19:00 09/09/17 11:01 09/09/17 02:09 15 MG Morphine Sulfate (MoRPHine SULFATE INJ) Q1H PRN IV 09/07/17 18:30 09/21/17 18:29 Acetaminophen 1000 mg/Empty Bag 100 ml @ 400 mls/hr Q8H IV 09/07/17 19:00 10/07/17 18:59 09/09/17 02:08 400 MLS/HR Famotidine 20 mg/ Syringe 5 ml @ 2.5 mls/min Q12H IV 09/08/17 09:00 10/08/17 08:59 09/09/17 07:41 2.5 MLS/MIN Enteral Nutritional Formula (Peptamen 1.5) 1,000 ml UD PRN JT 09/08/17 09:15 10/08/17 09:14 Potassium Phosphate 21 mmol/ Sodium Chloride 507 ml @ 88 mls/hr ONE ONCE IV 09/09/17 08:00 09/09/17 13:45 09/09/17 08:09 88 MLS/HR Tamsulosin HCl (Flomax Cap) 0.4 mg HS PO 09/09/17 21:00 10/09/17 20:59 Vital Signs: Date Time Temp Pulse Resp B/P (MAP) Pulse Ox O2 Delivery O2 Flow Rate FiO2 09/09/17 08:00 36.7 18 150/109 (123) 96 Room Air 09/09/17 08:00 96 Room Air 09/09/17 06:00 94 20 149/95 (113) 97 Room Air 09/09/17 05:00 93 20 150/99 (116) 99 Room Air 09/09/17 05:00 93 20 150/99 (116) 99 09/09/17 04:00 Room Air 09/09/17 04:00 36.7 94 21 153/90 (111) 95 Room Air 09/09/17 03:00 94 25 148/89 (108) 94 Room Air 09/09/17 02:00 94 25 150/93 (112) 94 Room Air 09/09/17 01:00 82 15 140/81 (100) 94 09/09/17 00:00 36.5 93 24 138/92 (107) 94 Room Air 09/08/17 23:59 Room Air 09/08/17 23:00 98 24 159/96 (117) 93 09/08/17 20:00 95 Room Air 09/08/17 20:00 36.7 90 22 123/84 (97) 95 09/08/17 16:00 36.8 92 19 109/74 (86) 92 Room Air 09/08/17 16:00 91 Room Air 09/08/17 12:10 36.8 81 18 125/77 (93) 97 Nasal Cannula 2.0 Humidified Oxygen 09/08/17 12:00 95 92 09/08/17 11:30 95 Nasal Cannula 2.0 Humidified Oxygen 09/08/17 11:00 84 22 120/78 (92) 95 09/08/17 10:43 84 19 125/82 (96) 95 09/08/17 10:00 81 20 122/75 (91) 96 Nasal Cannula 2.0 Humidified Oxygen 09/08/17 09:30 81 17 123/74 (90) 96 Laboratory Results: Last 24 Hours Test 09/08/17 12:09 09/09/17 06:20 Bedside Glucose 91 mg/dl White Blood Count 10.41 K/uL Red Blood Count 3.44 M/uL Hemoglobin 10.7 g/dL Hematocrit 33.6 % Mean Corpuscular Volume 97.7 fL Mean Corpuscular Hemoglobin 31.1 pg Mean Corpuscular Hemoglobin Concent 31.8 g/dl RDW Standard Deviation 54.9 fL RDW Coefficient of Variation 15.5 % Platelet Count 259 K/uL Mean Platelet Volume 8.8 fL Sodium Level 139 mmol/L Potassium Level 3.6 mmol/L Chloride Level 105 mmol/L Carbon Dioxide Level 30 mmol/L Anion Gap 5.0 mmol/L Blood Urea Nitrogen 22 mg/dl Creatinine 0.86 mg/dl Est Creatinine Clear Calc Drug Dose 88.9 ml/min Estimated GFR () 104.0 Estimated GFR (Non- 89.7 BUN/Creatinine Ratio 26.0 Random Glucose 102 mg/dl Calcium Level 8.7 mg/dl Phosphorus Level 1.8 mg/dl Magnesium Level 2.1 mg/dl Resident Tracking Resident Involvement: Resident Care Provided Care Provided: Adult [facility] Medicine
[2017-09-09] MEDS ORDERED: AMLODIPINE BESYLATE 5 MG TAB PO ONE (09:15)
--- NOTE | 2017-09-09 09:28 | DIAGNOSTIC IMAGING REPORT ---
JEJUNOSTOMY TUBE CHECK CLINICAL HISTORY: Evaluate jejunostomy tube. COMPARISON STUDY: No previous studies for comparison. FINDINGS: The study is performed in a portable fashion. 30 cc Optiray 300 was instilled through the patient's jejunostomy tube. An immediate and 2 with delayed image was acquired. There is a left mid abdominal jejunostomy tube. Contrast opacifies the jejunum. No extravasation of contrast is visualized. Note is made of a small left pleural effusion and left lower lobe atelectasis/consolidation. There is suspected free intraperitoneal air. IMPRESSION: The left-sided jejunostomy tube appears patent. No contrast extravasation is visualized. Electronically signed by: Howie Snow M.D. 09/09/2017 9:26 AM Dictated Date/Time: 09/09/2017 9:24 AM
--- NOTE | 2017-09-09 09:40 | SURGERY PROGRESS NOTE ---
DATE: 09/09/2017 SUBJECTIVE: Mr. Stack is now 2 days status post robotic-assisted esophagectomy. He is afebrile. His vital signs are stable. Blood pressure has come up a bit. The patient has been ambulating in the hallway. He is still on room air. He has a few rhonchi in his lungs and is not breathing as deeply as I would like. He does have a pretty good cough. He has a regular rate and rhythm of his heart. His abdomen is nice and soft. His bowel sounds are quiet. His G-tube feedings are at 20 mL an hour. He had a bit more air on his x-ray under the diaphragm that we saw yesterday. I do not think this represents anything more than residual air; however, I did check a J-tube study with some contrast and his J tube appears to be functioning well and in proper position. Neurologically, he is still a bit confused, we have had a "medical claims specialist" on a 1:1 to make sure he does not pull his NG out. Didier-Maldonado drain is draining some serous fluid and drained 150 mL over the last 24 hours. His NG tube has drained 25 mL. Urine output has been an issue. The patient had a prostatectomy in the distant past. Jones catheter went in without difficulty and we removed it. He really did not void for several hours yesterday and then had bladder scan and showed 500 mL. He was straight cathed for about 450 mL this morning. I am a bit concerned about his inability to void. I am not sure the effect of Flomax is going to be after a prostatectomy. I am going to ask the urologist to take a look at him. Dr. Jones saw him preoperatively. He does not have an air leak and his chest tube looks good. His x-ray shows a bit more atelectasis in his left base. His NG appears to be in place. Quite frankly, I am happy with what we see so far. We will continue on and increase his tube feedings. We will check a barium swallow on Tuesday.
[2017-09-09] MEDS: D5W AND 1/2NSS 1,000 ML IV SCH ×3 (10:00→23:19)
--- NOTE | 2017-09-09 11:12 | Urology Consultation ---
History General Date of Service: Sep 09, 2017. Chief Complaint: incomplete bladder emptying Primary Care Physician: Zack Garcia M.D. Pt seen a urologist before?: Yes If yes, why?: prostate cancer History of Present Illness 67 yo male s/p esophagogastrectomy. consulted for post-op UR. The pt has a hx of radical prostatectomy in 2003. Only follows with his PCP for PSAs, which his states have been normal. Pereira catheter initially placed pre-op by Dr. Jones without difficulty. Removed post-op, and the pt has needed straight cathed since for 500ml. Pt denies any difficulty voiding prior to surgery. Laboratory Last 24 Hours Test 09/08/17 12:09 09/09/17 06:20 Bedside Glucose 91 mg/dl White Blood Count 10.41 K/uL Red Blood Count 3.44 M/uL Hemoglobin 10.7 g/dL Hematocrit 33.6 % Mean Corpuscular Volume 97.7 fL Mean Corpuscular Hemoglobin 31.1 pg Mean Corpuscular Hemoglobin Concent 31.8 g/dl RDW Standard Deviation 54.9 fL RDW Coefficient of Variation 15.5 % Platelet Count 259 K/uL Mean Platelet Volume 8.8 fL Sodium Level 139 mmol/L Potassium Level 3.6 mmol/L Chloride Level 105 mmol/L Carbon Dioxide Level 30 mmol/L Anion Gap 5.0 mmol/L Blood Urea Nitrogen 22 mg/dl Creatinine 0.86 mg/dl Est Creatinine Clear Calc Drug Dose 88.9 ml/min Estimated GFR () 104.0 Estimated GFR (Non- 89.7 BUN/Creatinine Ratio 26.0 Random Glucose 102 mg/dl Calcium Level 8.7 mg/dl Phosphorus Level 1.8 mg/dl Magnesium Level 2.1 mg/dl Problem List Medical Problems: (1) Right-sided chest pain Status: Acute Past History cancer - skin (SCC), high cholesterol, hypertension, myocardial infarction Past Surgical History: tonsillectomy, other (Radical prostatectomy, MOH's surgery, hernia repair, esophagogastrectomy) Family History FHx: diabetes FHx: heart disease FHx: hypertension Social History Hx Tobacco Use In Past Year?: Yes (1/2 PPD X40 YEARS quit 6 mo ago) Smoking: other (current everyday smoker) Alcohol: occasional Drug use: none Marital status: Housing status: lives with family History of MDRO No Allergies Coded Allergies: Iodinated Diagnostic Agents (Verified Allergy, Intermediate, HIVES, ) SHORTLY AFTER THE LIDOCAINE INJECTION DURING A SKIN LESION REMOVAL AND HAD RECEIVED CHEMOTHERAPY WITHIN 2 MONTHS PRIOR SURE UNSURE IF A TRUE ALLERGY. Lidocaine (Verified Allergy, Intermediate, HIVES, 08/30/17) HAD CHEMOTHERAPY WITHIN 2 MONTHS PRIOR Medications Home Medications: Home Meds and Scripts Medications Dose Route/Sig Max Daily Dose Days Date Category Medrol (Methylprednisolone) 4 Mg Tab 4 Mg PO 09/07/17 Reported Aggrenox 25-200 mg (Dipyridamole/Aspirin) 1 Cap Cap 1 Cap PO BID 08/30/17 Reported Prilosec (Omeprazole) 40 Mg Cap 40 Mg PO QAM 08/30/17 Reported Zocor (Simvastatin) 40 Mg Tab 40 Mg PO QAM 07/31/09 Reported Inpatient Medications: Current Inpatient Medications Medications (Trade) Dose Ordered Sig/Yo Route Start Time Stop Time Status Last Admin Dose Admin Enoxaparin Sodium (Lovenox Inj) 40 mg DAILY SQ 09/08/17 09:00 10/08/17 08:59 09/09/17 07:41 40 MG Dextrose/Sodium Chloride 1,000 ml @ 100 mls/hr Q10H IV 09/07/17 19:00 10/07/17 18:59 09/09/17 10:02 100 MLS/HR Ondansetron HCl (Zofran Inj) 4 mg Q4H PRN IV 09/07/17 18:30 10/07/17 18:29 Ketorolac Tromethamine (Toradol Inj) 15 mg Q8H IV. 09/07/17 19:00 09/09/17 11:01 09/09/17 10:06 15 MG Morphine Sulfate (MoRPHine SULFATE INJ) Q1H PRN IV 09/07/17 18:30 09/21/17 18:29 Acetaminophen 1000 mg/Empty Bag 100 ml @ 400 mls/hr Q8H IV 09/07/17 19:00 10/07/17 18:59 09/09/17 09:58 400 MLS/HR Famotidine 20 mg/ Syringe 5 ml @ 2.5 mls/min Q12H IV 09/08/17 09:00 10/08/17 08:59 09/09/17 07:41 2.5 MLS/MIN Potassium Phosphate 21 mmol/ Sodium Chloride 507 ml @ 88 mls/hr ONE ONCE IV 09/09/17 08:00 09/09/17 13:45 09/09/17 08:09 88 MLS/HR Amlodipine Besylate (Norvasc Tab) 5 mg QAM PO 09/10/17 09:00 10/10/17 08:59 Enteral Nutritional Formula (Peptamen 1.5) 1,000 ml UD PRN JT 09/09/17 09:45 10/09/17 09:44 Review of Systems Review of Systems Constitutional: No fever, No chills Eyes: No double vision Neurological: No dizzy Endocrine: No excessive thirst Gastrointestinal: No abdominal pain, No nausea, No vomiting Cardiovascular: + chest pain (pain at incision sites) Respiratory: No shortness of breath Skin: No rash Musculoskeletal: No back pain Male : + urinary retention Physical Exam Vital Signs: Vital Signs Past 12 Hours Date Time Temp Pulse Resp B/P (MAP) Pulse Ox O2 Delivery O2 Flow Rate FiO2 09/09/17 10:00 99 20 135/94 (108) 93 Room Air 09/09/17 08:00 36.7 18 150/109 (123) 96 Room Air 09/09/17 08:00 96 Room Air 09/09/17 06:00 94 20 149/95 (113) 97 Room Air 09/09/17 05:00 93 20 150/99 (116) 99 Room Air 09/09/17 05:00 93 20 150/99 (116) 99 09/09/17 04:00 Room Air 09/09/17 04:00 36.7 94 21 153/90 (111) 95 Room Air 09/09/17 03:00 94 25 148/89 (108) 94 Room Air 09/09/17 02:00 94 25 150/93 (112) 94 Room Air 09/09/17 01:00 82 15 140/81 (100) 94 09/09/17 00:00 36.5 93 24 138/92 (107) 94 Room Air 09/08/17 23:59 Room Air 09/08/17 23:00 98 24 159/96 (117) 93 Physical Exam: General Appearance: no apparent distress Eyes: bilateral eyes normal inspection ENT: hearing grossly normal Neck: no JVD Respiratory/Chest: no respiratory distress, no accessory muscle use Cardiovascular: no JVD Extremities: normal inspection Neurologic/Psychiatric: alert, normal mood/affect, oriented x 3 Skin: normal color Assessment & Plan Assessment & Plan A/P: Incomplete bladder emptying AFVSS. Pt bladder scanned for 156ml this morning. Will leave out pereira catheter for now, and check PVRs qshift. Place pereira catheter for PVR >250ml and allow for bladder rest. Will also start Flomax. Thanks for the consult. Will continue to follow along with primary service.
[2017-09-09] MEDS: PEPTAMEN 1.5 CAL 1000ML BAG JT PRN (16:09)
[2017-09-09] MEDS: TAMSULOSIN HCL 0.4 MG CAP PO SCH (20:33)
[2017-09-09] MEDS ORDERED: TAMSULOSIN HCL 0.4 MG CAP PO SCH (21:00)
[2017-09-10] VITALS (9 sets, daily range): BP systolic 141–155; BP diastolic 89–97; PULSE 93–105; TEMP 36.4–37.9; O2SAT 95–98
[2017-09-10] MEDS: ACETAMINOPHEN IV 1,000 MG in EMPTY BAG 0 ML IV SCH (03:10)
[2017-09-10 06:46] LABS: BASO % 0.2 %; BASO ABS # 0.02 K/uL (0-0.2); EOS % 1.4 %; EOS ABS # 0.12 K/uL (0-0.5); HEMATOCRIT 30.2 % (42-52); HEMOGLOBIN 9.6 g/dL (14.0-18.0); IG# 0.02 K/uL (0.00-0.02); LYMPH ABS # 0.25 K/uL (1.2-3.4); MEAN CELL VOLUME 96.5 fL (80-100); MEAN CORPUSCULAR HEMOGLOBIN 30.7 pg (25-34); MEAN CORPUSCULAR HGB CONC 31.8 g/dl (32-36); MEAN PLATELET VOLUME 8.6 fL (7.4-10.4); MONO % 10.7 %; NEUT % 84.5 %; NEUT ABS # 7.12 K/uL (1.4-6.5); PLATELET COUNT 229 K/uL (130-400); RED CELL DISTRIBUTION WIDTH CV 15.3 % (11.5-14.5); RED CELL DISTRIBUTION WIDTH SD 54.3 fL (36.4-46.3); WHITE BLOOD COUNT 8.43 K/uL (4.8-10.8)
--- NOTE | 2017-09-10 07:14 | DIAGNOSTIC IMAGING REPORT ---
CHEST ONE VIEW PORTABLE CLINICAL HISTORY: Esophagogastrectomy. COMPARISON STUDY: Chest radiograph September 09, 2017. FINDINGS: Pneumoperitoneum has likely slightly decreased. A mediastinal drain is noted. Position of nasogastric tube is unchanged, projecting just superior to the diaphragmatic hiatus. A right pleural catheter remains in place. There is no pneumothorax. Left basilar opacity persists. Right basilar opacity is slightly improved. Cardiac size is stable. Simultaneous gas within the neck is again noted. IMPRESSION: 1. Persistent left basilar opacity with interval improvement in right basilar opacity. 2. Suspected decrease in pneumoperitoneum which is likely related to recent surgery. 3. No change in position of the nasogastric tube with tip projecting just superior to the diaphragmatic hiatus. 4. Right pleural catheter in place. No pneumothorax. Electronically signed by: Dat Leonardo M.D. 09/10/2017 7:13 AM Dictated Date/Time: 09/10/2017 7:09 AM
[2017-09-10 07:23] LABS: ALBUMIN 1.9 gm/dl (3.4-5.0); CALCIUM 8.4 mg/dl (8.5-10.1); CREATININE 0.56 mg/dl (0.60-1.40); PHOSPHORUS 1.8 mg/dl (2.5-4.9); POTASSIUM 3.6 mmol/L (3.5-5.1)
[2017-09-10] MEDS: FAMOTIDINE IV INJ 20 MG in SYRINGE 3 ML IV SCH ×2 (07:41→21:54)
[2017-09-10] MEDS: ENOXAPARIN 40 MG/0.4 ML SYR SQ SCH (07:41)
[2017-09-10] MEDS: D5W AND 1/2NSS 1,000 ML IV SCH (07:42)
--- NOTE | 2017-09-10 08:15 | SURGERY PROGRESS NOTE ---
DATE: 09/10/2017 SUBJECTIVE: Seda was seen today. He looks very good. 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 He is a bit confused. He is really not sleeping. I would suspect that this may be exacerbated the sleep deprivation. We discussed this with the house staff about not interrupting him at night to allow him to try to get some sleep and keeping the room dark. He is now postoperative day #3 from his esophagogastrectomy. I was quite pleased with the operative report. We have cleaned radial and distal and proximal margins. There was one focus of carcinoma in a lymph node of the 14 evaluated. I completely cleaned off his celiac axis and this is where this one small focus was. Preoperatively, he had large lymph nodes, which were involved and I agree with the pathologist evaluation this is probably treatment effect. At any rate, he looks good today. He is afebrile. He is ambulating in the hallways. His NG is really not draining. He has a few rhonchi, but is moving air well. His abdomen has better bowel sounds. He is having flatus. He is tolerating his tube feeds. He has regular rate and rhythm of his heart. He has no peripheral edema or had a negative Homans sign. Neurologically, he actually looks quite comfortable. His only complaint really is throat pain from the NG tube. His white count is 8430, the hemoglobin is 9.6. His electrolytes look good with a BUN and creatinine down to 15 and 0.56. His bicarbonate is 26. He has had an excellent urine output, but his Jones catheter had to be reinserted. His chest x-ray looks quite good with improving aeration in both bases, I think, although he still had some slight decrease in the left. He does have some slight infiltrative pattern in the left base. ASSESSMENT AND PLAN: Postoperative day #3, status post robotic assisted esophagogastrectomy. He is tolerating his tube feeds. We are going to stop his IV fluids and increase his tube feeds.
[2017-09-10] MEDS ORDERED: AMLODIPINE BESYLATE 5 MG TAB PO SCH (09:00)
--- NOTE | 2017-09-10 14:48 | Progress Note ---
Subjective Date of Service: Sep 10, 2017. Subjective Pt evaluation today including: conversation w/ family, physical exam, chart review, lab review, review of studies Pain: Tolerated PO Intake: NPO with NG Unable to void last night. Had catheter placed and draining well without issues. Not ambulating. Pain meds necessary. Had BM this am Problem List Medical Problems: (1) Right-sided chest pain Status: Acute Review of Systems All Other Systems: Reviewed and Negative (All pert pos and negs in HPI) Objective Vital Signs Date Time Temp Pulse Resp B/P (MAP) Pulse Ox O2 Delivery O2 Flow Rate FiO2 09/10/17 12:00 36.4 105 20 142/90 (107) 97 Room Air 09/10/17 12:00 97 Room Air 09/10/17 08:00 95 Room Air 09/10/17 08:00 36.6 98 17 153/94 (113) 95 Room Air 09/10/17 04:01 97 Room Air 09/10/17 04:00 36.6 95 18 152/90 (100) 98 09/10/17 03:12 93 18 142/97 (109) 97 09/10/17 01:00 93 25 142/95 (103) 98 09/10/17 00:11 95 18 155/95 (104) 97 09/09/17 23:59 97 Room Air 09/09/17 23:00 36.6 102 20 154/95 (108) 97 09/09/17 22:00 95 18 143/94 (104) 96 09/09/17 21:00 96 21 155/96 (113) 97 09/09/17 20:00 98 20 159/99 (114) 98 09/09/17 20:00 97 Room Air 09/09/17 20:00 36.6 09/09/17 19:00 99 23 149/90 (100) 98 09/09/17 18:00 109 20 165/101 (122) 97 Room Air 09/09/17 16:00 36.6 98 17 155/97 (116) 95 Room Air 09/09/17 16:00 95 Room Air Physical Exam General Appearance: no apparent distress Eyes: normal inspection ENT: hearing grossly normal Neck: supple, no JVD Respiratory/Chest: no respiratory distress, no accessory muscle use Cardiovascular: regular rate, rhythm Abdomen: soft Extremities: normal range of motion 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 Laboratory Results Last 24 Hours Test 09/09/17 17:43 09/10/17 05:46 Bedside Glucose 132 mg/dl White Blood Count 8.43 K/uL Red Blood Count 3.13 M/uL Hemoglobin 9.6 g/dL Hematocrit 30.2 % Mean Corpuscular Volume 96.5 fL Mean Corpuscular Hemoglobin 30.7 pg Mean Corpuscular Hemoglobin Concent 31.8 g/dl Platelet Count 229 K/uL Mean Platelet Volume 8.6 fL Neutrophils (%) (Auto) 84.5 % Lymphocytes (%) (Auto) 3.0 % Monocytes (%) (Auto) 10.7 % Eosinophils (%) (Auto) 1.4 % Basophils (%) (Auto) 0.2 % Neutrophils # (Auto) 7.12 K/uL Lymphocytes # (Auto) 0.25 K/uL Monocytes # (Auto) 0.90 K/uL Eosinophils # (Auto) 0.12 K/uL Basophils # (Auto) 0.02 K/uL RDW Standard Deviation 54.3 fL RDW Coefficient of Variation 15.3 % Immature Granulocyte % (Auto) 0.2 % Immature Granulocyte # (Auto) 0.02 K/uL Sodium Level 139 mmol/L Potassium Level 3.6 mmol/L Chloride Level 107 mmol/L Carbon Dioxide Level 26 mmol/L Anion Gap 6.0 mmol/L Blood Urea Nitrogen 15 mg/dl Creatinine 0.56 mg/dl Est Creatinine Clear Calc Drug Dose 134.3 ml/min Estimated GFR () 124.1 Estimated GFR (Non- 107.0 BUN/Creatinine Ratio 26.1 Random Glucose 122 mg/dl Calcium Level 8.4 mg/dl Phosphorus Level 1.8 mg/dl Albumin 1.9 gm/dl Assessment and Plan 1. AUR 2. Decondition Patient recovering from major surgery. Not ambulating fully. Just had first BM this am. Failed trial of void in hospital. Would rec approx 1 week with catheter and reattempt when ambulating and bowel function normalized. Will plan to remove pereira prior to leaving if here until /Tue, if not follow up in office in 1 week for pereira removal. Plan for out patient followup.
[2017-09-10] MEDS: MoRPHine SULFATE 2 MG/ML CARP IV PRN (15:27)
[2017-09-10] MEDS: PEPTAMEN 1.5 CAL 1000ML BAG JT PRN (16:04)
[2017-09-10] MEDS: TAMSULOSIN HCL 0.4 MG CAP PO SCH (21:00)
[2017-09-11] VITALS (7 sets, daily range): BP systolic 124–151; BP diastolic 82–89; PULSE 102–109; TEMP 37–37.8; O2SAT 90–95
--- NOTE | 2017-09-11 07:55 | POST OPERATIVE BRIEF NOTE ---
SUBJECTIVE: Mr. Stack is now 4 days status post a robot-assisted thoracoscopic and laparoscopic esophagogastrectomy. He has done well overnight. He has been sleeping well the last day. He has moved his bowels twice. He is on room air and ambulating. Unfortunately, he has to have an indwelling Jones because of the issues with this and with voiding and I greatly appreciate Dr. Bender' input into this. His nasogastric tube has drained a bit more, about 125 mL or so. The drainage from his Didier-Maldonado has been relatively stable at 215 yesterday and 50 over the first shift yesterday, but it looks like he has another 75 now. He has been tolerating his J tube feedings quite well. His lungs sound very good. His incisions are all clean. His J tube, chest tube site and Didier-Maldonado site are all clean. NG is draining light-colored fluid. His abdomen is nice and soft with good bowel sounds. He has no peripheral edema. Sequential compression devices are in place. His Jones catheter is draining clear urine. ASSESSMENT AND PLAN: Postoperative day 4, robot-assisted minimally invasive esophagectomy. We are going to check a barium swallow tomorrow and recheck labs. I am quite pleased with his progress at this point.
[2017-09-11] MEDS: ENOXAPARIN 40 MG/0.4 ML SYR SQ SCH (08:14)
[2017-09-11] MEDS: FAMOTIDINE IV INJ 20 MG in SYRINGE 3 ML IV SCH ×2 (09:25→20:24)
[2017-09-11] MEDS: MoRPHine SULFATE 2 MG/ML CARP IV PRN (15:15)
[2017-09-11] MEDS: PEPTAMEN 1.5 CAL 1000ML BAG JT PRN (15:37)
[2017-09-11] MEDS: TAMSULOSIN HCL 0.4 MG CAP PO SCH (21:00)
[2017-09-12] VITALS (10 sets, daily range): BP systolic 111–178; BP diastolic 69–82; PULSE 85–110; TEMP 36.6–38.3; O2SAT 92–96
[2017-09-12] MEDS ORDERED: NURSING VERBAL MED ORDER ONE ×2 (04:00→20:30)
[2017-09-12] MEDS ORDERED: ACETAMINOPHEN IV 1000MG/100ML IV STA (04:35)
[2017-09-12 04:44] LABS: BASO % 0.2 %; BASO ABS # 0.02 K/uL (0-0.2); HEMATOCRIT 31.4 % (42-52); HEMOGLOBIN 10.3 g/dL (14.0-18.0); IG# 0.05 K/uL (0.00-0.02); LYMPH % 7.7 %; LYMPH ABS # 0.75 K/uL (1.2-3.4); MEAN CELL VOLUME 96.6 fL (80-100); MEAN CORPUSCULAR HEMOGLOBIN 31.7 pg (25-34); MEAN PLATELET VOLUME 8.8 fL (7.4-10.4); MONO % 10.7 %; MONO ABS # 1.05 K/uL (0.11-0.59); NEUT % 78.9 %; NEUT ABS # 7.73 K/uL (1.4-6.5); PLATELET COUNT 265 K/uL (130-400); RED CELL DISTRIBUTION WIDTH CV 15.1 % (11.5-14.5)
[2017-09-12 05:06] LABS: ALBUMIN 1.9 gm/dl (3.4-5.0); CALCIUM 8.6 mg/dl (8.5-10.1); CREATININE 0.68 mg/dl (0.60-1.40); PHOSPHORUS 2.1 mg/dl (2.5-4.9); POTASSIUM 4.1 mmol/L (3.5-5.1)
[2017-09-12 05:33] LABS: MEAN CORPUSCULAR HGB CONC 32.8 g/dl (32-36)
--- NOTE | 2017-09-12 06:45 | DIAGNOSTIC IMAGING REPORT ---
CHEST ONE VIEW PORTABLE CLINICAL HISTORY: MD FUNES fever. Esophageal carcinoma. COMPARISON STUDY: 09/10/2017 FINDINGS: Unchanging parenchymal infiltrative and or consolidative change left lung base. Nasogastric tube remains in the region of the distal esophagus. Right lung is considered generally clear. There is a right-sided drainage catheter. IMPRESSION: 1. Unchanging to minimally increased parenchymal infiltrative change left base.. 2. Unchanging subdiaphragmatic free air. 3. The right Hemithoracic catheter is unchanged. 4. Trace residual subcutaneous emphysema over the right hemithoracic region The above report was generated using voice recognition software. It may contain grammatical, syntax or spelling errors. Electronically signed by: Jae Allen M.D. 09/12/2017 6:44 AM Dictated Date/Time: 09/12/2017 6:41 AM
[2017-09-12] MEDS: FAMOTIDINE IV INJ 20 MG in SYRINGE 3 ML IV SCH ×2 (07:54→21:06)
[2017-09-12] MEDS: ENOXAPARIN 40 MG/0.4 ML SYR SQ SCH (07:55)
[2017-09-12] MEDS: PEPTAMEN 1.5 CAL 1000ML BAG JT PRN (08:42)
--- NOTE | 2017-09-12 08:49 | DIAGNOSTIC IMAGING REPORT ---
(BARIUM SWALLOW) ESOPHAGUS CLINICAL HISTORY: esophagogastrectomy - Please do at time requested.Esophageal carcinoma COMPARISON STUDY: None FLUOROSCOPY TIME: 1.5 minutes. FINDINGS: Operative changes consistent with a partial esophagectomy and anastomosis. No evidence for contrast extravasation. Contrast exits the stomach and enters the small bowel without obstructive change. IMPRESSION: Normal study post esophagogastrectomy. No evidence for extravasation or obstructive change. Good flow of contrast to the small bowel. The above report was generated using voice recognition software. It may contain grammatical, syntax or spelling errors. Electronically signed by: Jae Allen M.D. 09/12/2017 8:47 AM Dictated Date/Time: 09/12/2017 8:43 AM
--- NOTE | 2017-09-12 15:13 | SURGERY PROGRESS NOTE ---
DATE: 09/12/2017 SUBJECTIVE: Mr. Stack was seen today on 09/12/2017. He is doing very well. His barium swallow looked quite good with no evidence of extravasation and good flow to the small bowel. I removed his NG tube. If he has no issues with his drainage increasing in his chest tube, we are going to remove his chest tube and keep the Didier-Maldonado for a while longer. I was quite happy with the appearance of his studies.
[2017-09-12] MEDS ORDERED: ACETAMINOPHEN SOLN 650MG/20.3 ML UDC PO PRN (20:45)
[2017-09-12] MEDS: TAMSULOSIN HCL 0.4 MG CAP PO SCH (21:06)
[2017-09-13] VITALS (7 sets, daily range): BP systolic 117–137; BP diastolic 72–85; PULSE 87–90; TEMP 36.6–37.2; O2SAT 96–100
[2017-09-13] MEDS: PEPTAMEN 1.5 CAL 1000ML BAG JT PRN (03:43)
[2017-09-13] MEDS: ENOXAPARIN 40 MG/0.4 ML SYR SQ SCH (07:39)
--- NOTE | 2017-09-13 08:31 | Progress Note ---
Subjective Date of Service: Sep 13, 2017. Subjective Pt evaluation today including: conversation w/ patient, physical exam, chart review, lab review, review of inpatient medication list Pain: Controlled PO Intake: Clears on tray Voiding: pereira catheter in place (urine clear) 67 yo male POD#6 s/p robotic esophagectomy. His history of prostatectomy > 10 years ago and postop retention are noted, past notes reviewed. He is slightly confused this AM but otherwise appropriate, resting comfortably in chair. He denies baseline incontinence, does not regularly f/u for is CAP. No new complaints. Problem List Medical Problems: (1) Right-sided chest pain Status: Acute Review of Systems Constitutional: No chills, No sweats Eyes: No worsening of vision ENT: No hearing loss Abdomen: No nausea, No vomiting Musculoskeletal: No muscle pain Male : + sexual dysfunction, No hematuria Neurologic: No paralysis Psychiatric: No anxiety Heme: No swollen lymph nodes Endo: + fatigue Skin: No new/changing skin lesions Objective Vital Signs Date Time Temp Pulse Resp B/P (MAP) Pulse Ox O2 Delivery O2 Flow Rate FiO2 09/13/17 07:12 36.8 90 18 120/74 (89) 96 09/13/17 04:15 36.6 88 19 117/72 (87) 96 Room Air 09/13/17 00:00 Room Air 09/12/17 23:14 37.2 96 18 117/73 (88) 94 Room Air 09/12/17 19:13 37.9 107 19 113/70 (84) 93 Room Air 09/12/17 15:45 96 Room Air 09/12/17 15:44 36.6 85 20 118/69 (85) 96 Room Air 09/12/17 12:03 110 20 111/72 (85) 93 09/12/17 11:09 37.0 101 19 92 Physical Exam General Appearance: no apparent distress, + thin ENT: hearing grossly normal Neck: supple, no adenopathy Respiratory/Chest: no accessory muscle use Abdomen: non tender, soft Extremities: non-tender Neurologic/Psychiatric: normal mood/affect Skin: normal color Assessment and Plan A/P 67 yo male with postop retention POD#6 s/p robotic esophagectomy. Pereira has been in since last week - will attempt TOV today. Check PVR, replace 16 fr pereira if unable to void. If fails repeat TOV will plan on outpatient trial of void in office. Thank you for allowing us to participate in this patient's acute care.
[2017-09-13] MEDS: FAMOTIDINE IV INJ 20 MG in SYRINGE 3 ML IV SCH ×2 (08:52→20:37)
--- NOTE | 2017-09-13 09:14 | SURGERY PROGRESS NOTE ---
DATE: 09/13/2017 Mr. Stack was seen today on 09/13/2017. He is now 6 days status post a robot-assisted minimally invasive esophagectomy after chemotherapy and radiation. He has done superbly. We removed his chest tube today. He is tolerating a liquid diet. I discussed his case with Dr. Yunior Vicente and removed his Jones catheter also. The only 2 tubes remaining are his J-tube which he is tolerating well and his right Didier-Maldonado drain. The patient has had some low-grade fevers. His max is 37.9. We have not started antibiotics at this point. His temperature today is 36.8. Blood cultures have been negative. There is a urine culture pending. He put out very little through his chest tube. He put out 345 mL through the Didier-Maldonaod yesterday but only 40 mL so far today and he is drinking quite a bit. As stated, he has moved his bowels. His weight has been stable. He has no peripheral edema. His abdomen is nice and soft. All of his incisions are clean. His tube sites are clean. His lungs are clear except for a few rhonchi and he is able to clear these with a cough. ASSESSMENT AND PLAN: Postop day #6 status post minimally invasive esophagectomy with robot assistance. We are going to increase his ambulation, and if he tolerates his diet well, we are going to start making arrangements to send him home on nighttime feedings with his J-tube.
--- NOTE | 2017-09-13 10:29 | DIAGNOSTIC IMAGING REPORT ---
CHEST 2 VIEWS ROUTINE CLINICAL HISTORY: 67 years-old Male presenting with chest tube removal. TECHNIQUE: PA and lateral views of the chest were obtained. COMPARISON: 09/12/2017. FINDINGS: Interval removal of the large bore right pleural drain. Didier-Maldonado drain projects over the paramediastinal posterior right hemithorax. Persistent left basilar opacity and small left pleural effusion. Right lung and pleural space clear. Osseous structures normal. Persistent evidence of pneumoperitoneum. Gas-filled gastric pull-through noted. IMPRESSION: 1. No right pneumothorax status post removal of the large bore right pleural drain. 2. Persistent left basilar consolidation and small left pleural effusion. 3. Persistent pneumoperitoneum, which correlates with recent esophagectomy. Electronically signed by: Lester Cooley M.D. 09/13/2017 10:27 AM Dictated Date/Time: 09/13/2017 10:17 AM
[2017-09-13] MEDS: TAMSULOSIN HCL 0.4 MG CAP PO SCH (20:37)
[2017-09-14] VITALS (8 sets, daily range): BP systolic 119–144; BP diastolic 74–81; PULSE 83–92; TEMP 36.6–37.1; O2SAT 96–98
[2017-09-14] MEDS: PEPTAMEN 1.5 CAL 1000ML BAG JT PRN ×2 (01:06→21:56)
[2017-09-14] MEDS: FAMOTIDINE IV INJ 20 MG in SYRINGE 3 ML IV SCH ×2 (08:36→21:58)
[2017-09-14] MEDS: ENOXAPARIN 40 MG/0.4 ML SYR SQ SCH (08:37)
--- NOTE | 2017-09-14 09:37 | Progress Note ---
Subjective Date of Service: Sep 14, 2017. Subjective Pt evaluation today including: conversation w/ patient, conversation w/ family , chart review, lab review Voiding: no voiding problems 67 yo male with post-op UR. Jones removed yesterday. Pt voiding without difficulty. Denies dysuria or hematuria. Problem List Medical Problems: (1) Right-sided chest pain Status: Acute Review of Systems Constitutional: No fever, No chills Respiratory: No shortness of breath Cardiac: No chest pain Abdomen: No pain, No nausea, No vomiting Male : No dysuria, No hematuria Heme: No abnormal bleeding/bruising Objective Vital Signs Date Time Temp Pulse Resp B/P (MAP) Pulse Ox O2 Delivery O2 Flow Rate FiO2 09/14/17 07:21 36.8 86 18 144/78 (100) 96 Room Air 09/14/17 04:06 37.1 89 20 127/79 (95) 96 Room Air 09/14/17 00:15 Room Air 09/13/17 23:34 37.2 87 18 125/76 (92) 97 Room Air 09/13/17 20:23 36.6 89 18 131/84 (100) 96 Room Air 09/13/17 16:00 100 Room Air 09/13/17 14:26 36.8 89 18 137/85 (102) 100 09/13/17 11:17 37.0 90 18 125/79 (94) 100 Physical Exam General Appearance: no apparent distress Eyes: normal inspection ENT: hearing grossly normal Neck: no JVD Respiratory/Chest: no respiratory distress, no accessory muscle use Cardiovascular: no JVD Extremities: normal inspection Neurologic/Psychiatric: alert, normal mood/affect, oriented x 3 Skin: normal color Assessment and Plan A/P: Post-op urinary retention Retention resolved. No further management at this time. Will arrange for outpatient f/u in 2-3 weeks. Recall PRN issues. Thanks for allowing us to participate in this pt's care.
--- NOTE | 2017-09-14 20:13 | SURGERY PROGRESS NOTE ---
DATE: 09/14/2017 Mr. Stack looks great today. I am quite happy with his incisions. He is eating well. He is tolerating his J tube feedings. On exam he looks great. His x-ray from yesterday looks very good. He has no evidence of effusion. He still has some intra-abdominal air. All in all I am quite happy with him. I may let him go home tomorrow.
[2017-09-14] MEDS: TAMSULOSIN HCL 0.4 MG CAP PO SCH (21:56)
[2017-09-15] MEDS ORDERED: FLM4 PO (07:23)
[2017-09-15] MEDS ORDERED: NUTR-1305 JT (07:26)
[2017-09-15] MEDS ORDERED: ACET325T95 PO (07:26)
--- NOTE | 2017-09-15 07:31 | Discharge Instructions ---
Discharge Instructions Date of Service Sep 15, 2017. Admission Reason for Admission: Esophageal Cancer Discharge Discharge Diagnosis / Problem: Esophageal Cancer Discharge Goals Goal(s): Learn about illness Activity Recommendations Activity Limitations: as noted below Lifting Limitations: no more than 10 pounds (until cleared to do so by Dr. Queen ) 1. Do not lift objects heavier than 10 pounds until cleared to do so by Dr. Queen. 2. do not drive until cleared to do so b Dr. Queen. . Instructions / Follow-Up Instructions / Follow-Up 1. Office appointment with Dr. Queen in 1 week. Office will call you with date and time of appointment. Go to hospital 1 hour before appointment to have a chest x-ray taken. 2. You may remove dressings in 3 days and shower thereafter. No tub baths. 3. You may consume a soft diet. Tube feed will run at night from 8pm through [address] 4[address] Queen with any issues at [phone] ([phone]) Current Hospital Diet Patient's current hospital diet: Clear Liquid Diet Discharge Diet Recommended Diet: Regular Diet Diet Texture: Mechanical Soft (ground) Procedures Procedures Performed: Robotic Assisted Laparotomy and Right Video Assisted Thoracoscopy with Esophagogastrectomy Pending Studies Studies pending at discharge: no Medical Emergencies . Who to Call and When: Medical Emergencies: If at any time you feel your situation is an emergency, please call 911 immediately. . Non-Emergent Contact Non-Emergency issues call your: Surgeon Call Non-Emergent contact if: you have a fever, your pain is not controlled, wound has increased drainage . "Provider Documentation" section prepared by Stuart Altamirano. . VTE Core Measure Inpt VTE Proph given/why not?: Enoxaparin (Lovenox)SQ
[2017-09-15 07:32] VITALS: BP 163/78; PULSE 92; TEMP 36.6; O2SAT 98
[2017-09-15] MEDS: ENOXAPARIN 40 MG/0.4 ML SYR SQ SCH (07:37)
--- NOTE | 2017-09-15 07:45 | DISCHARGE SUMMARY ---
DISCHARGE DIAGNOSES: 1. Status post RAIME (robot-assisted minimally invasive esophagectomy). 2. Adenocarcinoma of the distal esophagus. 3. Cognitive dysfunction. 4. Urinary retention. HOSPITAL COURSE: Jose Stack is a 67-year-old male with a mild cognitive dysfunction was found to have adenocarcinoma of the distal esophagus. He underwent chemotherapy and radiation and was restaged seemed to have an excellent response. I took him to the operating room on 09/07/2017, did a robot-assisted minimally invasive esophagectomy. We did an [place] Aaron esophagectomy with an intrathoracic esophagogastrostomy. We did make a small laparotomy incision at the end of the abdominal portion to place the jejunostomy tube. The patient did very well and was extubated following morning. He was ambulating in the hallway on postop day #1. He did very well and we were able to remove his chest tube after a barium swallow showed no evidence of extravasation and we had a good flow through the anastomosis and through the pylorus. It should be noted that we did an injection of the pylorus with Botox at the time of surgery. Anyway, he did very well. We got him on to the floor. He was ambulating in the hallway. He had a Didier-Maldonado in the area of his anastomosis. This drain had steadily decreased and removed this on the morning of discharge. He is only tube going home was a jejunostomy tube. We will set him up for a nighttime feedings. I will see him back in the office in 1 week. His final pathology showed an excellent response to chemotherapy and radiation. We had clean resection margins including radial and distal margins. Our frozen section of the initial distal margin was positive for adenocarcinoma, but I was able to resect more and the new margin was free of tumor. There were 14 lymph nodes and 1 of the gastric nodes had a small foci of residual metastatic adenocarcinoma with mostly fibrosis and inflammation. His incisions were all clean. He was moving his bowels. He was tolerating a clear liquid diet. We are going to send him home on a soft diet and tube feedings at night. I will see him back next week. I suspect his J tube will be coming out in the near future. His final staging was a pT2, pN1, M0.
--- NOTE | 2017-09-15 07:52 | DIAGNOSTIC IMAGING REPORT ---
CHEST ONE VIEW PORTABLE CLINICAL HISTORY: chst rain removal post procedure COMPARISON STUDY: No previous studies for comparison. FINDINGS: Interval removal of the right-sided chest tube. Mild improvement of left basilar infiltrative change. No significant pneumothorax. No significant cardiac collision. IMPRESSION: No pneumothorax post right-sided drainage tube removal. Mild improvement of the left basilar infiltrate. The above report was generated using voice recognition software. It may contain grammatical, syntax or spelling errors. Electronically signed by: Jae Allen M.D. 09/15/2017 7:51 AM Dictated Date/Time: 09/15/2017 7:47 AM
[2017-09-15] MEDS: FAMOTIDINE IV INJ 20 MG in SYRINGE 3 ML IV SCH (09:50)
[2017-09-15 11:25] VITALS: BP 163/78; PULSE 92; TEMP 36.6; O2SAT 98
[2017-10-03] MEDS ORDERED: OMEP40CA41 PO (09:56)
[2017-10-03] MEDS ORDERED: AGG PO (09:58)
[2017-10-03] MEDS ORDERED: SIMV40TA2 PO (14:33)
[2017-10-03] MEDS ORDERED: ACET325T96 PO (22:29)
== END 2017-09-15 15:00 | disposition home health service (06) | DRG 330 ==
LOC: C.ACU 05:32 → C.MSICU 16:26 → ENRESERV 16:30 → C.2E 09-10 18:30 → EDBEDREQ 09-12 10:29 → ENRESERV 09-12 10:38 → C.4E 09-12 11:56
PROVIDERS: ADMIT Surgery; ATTEND Surgery
PROC: 0DB64ZZ Excision of Stomach, Percutaneous Endoscopic Approach (ICD-10-PCS; principal; 2017-09-07 07:15)
PROC: 0DQA0ZZ Repair Jejunum, Open Approach (ICD-10-PCS; principal; 2017-09-07 07:15)
PROC: 0W9940Z Drainage of Right Pleural Cavity with Drainage Device, Percutaneous Endoscopic Approach (ICD-10-PCS; principal; 2017-09-07 07:15)
PROC: 3E0 Administration, Physiological Systems and Anatomical Regions, Introduction (ICD-10-PCS; principal; 2017-09-07 07:15)
PROC: 0DHA3UZ Insertion of Feeding Device into Jejunum, Percutaneous Approach (ICD-10-PCS; principal; 2017-09-07 07:15)
PROC: 07B74ZX Excision of Thorax Lymphatic, Percutaneous Endoscopic Approach, Diagnostic (ICD-10-PCS; principal; 2017-09-07 07:15)
PROC: 0DB34ZZ Excision of Lower Esophagus, Percutaneous Endoscopic Approach (ICD-10-PCS; principal; 2017-09-07 07:15)
DX: C16.0 Malignant neoplasm of cardia (principal); K91.71 Accidental puncture and laceration of a digestive system organ or structure during a digestive system procedure; C77.2 Secondary and unspecified malignant neoplasm of intra-abdominal lymph nodes; Y83.6 Removal of other organ (partial) (total) as the cause of abnormal reaction of the patient, or of later complication, without mention of misadventure at the time of the procedure; Y92.234 Operating room of hospital as the place of occurrence of the external cause; R33.9 Retention of urine, unspecified; J44.9 Chronic obstructive pulmonary disease, unspecified; I25.10 Atherosclerotic heart disease of native coronary artery without angina pectoris; I10 Essential (primary) hypertension; E78.00 Pure hypercholesterolemia, unspecified; K21.9 Gastro-esophageal reflux disease without esophagitis; R53.81 Other malaise; G31.84 Mild cognitive impairment of uncertain or unknown etiology; I25.2 Old myocardial infarction; Z92.3 Personal history of irradiation; Z92.21 Personal history of antineoplastic chemotherapy; Z85.46 Personal history of malignant neoplasm of prostate; Z85.828 Personal history of other malignant neoplasm of skin; Z90.79 Acquired absence of other genital organ(s); Z87.891 Personal history of nicotine dependence; Z72.820 Sleep deprivation; Z79.82 Long term (current) use of aspirin; Z79.01 Long term (current) use of anticoagulants; Z79.899 Other long term (current) drug therapy

== ENCOUNTER 2017-09-19 18:54 | Emergency (ER) | payer OTHER ==
[~2017-09-19] VITALS: Ht 182.9 cm; Wt 70.1 kg
[~2017-09-19 18:54] MED LIST changes: +ACET325T95 PO; +AGG PO; +FLM4 PO; -LACTATED RINGER'S 1000ML 1,000 ML IV SCH; +NUTR-1305 JT; +OMEP40CA41 PO; +SIMV40TA2 PO
[2017-09-19 18:56] VITALS: TEMP 36.3; Ht 182.9 cm; Wt 70.1 kg
[2017-09-19] MEDS ORDERED: SODIUM CHLORIDE 0.9% 1000ML 500 ML IV STA (19:10)
--- NOTE | 2017-09-19 19:16 | EMERGENCY ROOM VISIT NOTE ---
History Report prepared by Ann: Bronson Worthy Under the Supervision of: Dr. John Whelan M.D. First contact with patient: 19:01 Chief Complaint: FEEDING TUBE PROBLEM Stated Complaint: FEEDING TUBE History of Present Illness The patient is a 67 year old male who presents to the Emergency Room with complaints of constant abdominal bloating beginning today. The patient states that he recently had surgery on his esophagus due to the presence of distal esophageal cancer. He notes that he had a J tube placed during his surgery two weeks ago. He reports that he was discharged from the hospital 4 days ago. The patient states that his bloating makes him "feel full." Per , the patient has been experiencing a lot of dark, yellow-brown drainage around the J tube today. She notes that she had to change the dressing twice. She reports that it appears that it is draining more than it did when it was first placed. She states that the patient is on a soft diet and can also eat on his own. The patient notes that he has not had a bowel movement today. He reports that his previous bowel movements have all been normal. He denies any urinary symptoms, vomiting, nausea, and fever. The patient states that he has had two previous hernia surgeries. Source of History: patient Onset: today Position: abdomen Quality: other (bloating) Timing: constant Associated Symptoms: No fevers, No nausea, No vomiting, No urinary symptoms Note: The patient has been experiencing a lot of dark, yellow-brown drainage coming from his J tube. Review of Systems See HPI for pertinent positives & negatives. A total of 10 systems reviewed and were otherwise negative. Past Medical & Surgical Medical Problems: (1) Diverticulosis (2) Esophageal cancer (3) Heart disease (4) Hypertension (5) Jejunostomy tube present Surgical Problems: (1) History of inguinal hernia repair (2) History of tonsillectomy Family History FHx: diabetes FHx: heart disease FHx: hypertension Social History Smoking Status: Former Smoker Drug Use: none Marital Status: Housing Status: lives with family Current/Historical Medications Scheduled Dipyridamole/Aspirin (Aggrenox 25-200 mg), 1 CAP PO BID Enteral Nutrition Formula (Peptamen 1.5), 1,000 ML JT UD Omeprazole (Prilosec), 40 MG PO QAM Simvastatin (Zocor), 40 MG PO QAM Tamsulosin HCl (Tamsulosin HCl), 0.4 MG PO HS Scheduled PRN Acetaminophen (Tylenol), 650 MG PO Q6 PRN for Pain Allergies Coded Allergies: Iodinated Diagnostic Agents (Verified Allergy, Intermediate, HIVES, ) SHORTLY AFTER THE LIDOCAINE INJECTION DURING A SKIN LESION REMOVAL AND HAD RECEIVED CHEMOTHERAPY WITHIN 2 MONTHS PRIOR SURE UNSURE IF A TRUE ALLERGY. Lidocaine (Verified Allergy, Intermediate, HIVES, 08/30/17) HAD CHEMOTHERAPY WITHIN 2 MONTHS PRIOR Physical Exam Vital Signs Date Time Temp Pulse Resp B/P (MAP) Pulse Ox O2 Delivery O2 Flow Rate FiO2 09/19/17 19:49 89 09/19/17 18:56 36.3 89 18 104/65 97 Room Air Physical Exam GENERAL: Patient is in no acute distress. HEENT: No acute trauma, normocephalic atraumatic, mucous membranes moist, no nasal congestion, no scleral icterus. NECK: No stridor, no adenopathy, no meningismus, trachea is midline. LUNGS: Clear to auscultation bilaterally, no wheeze, no rhonchi, breath sounds equal. HEART: Without murmurs gallops or rubs, regular rate and rhythm. ABDOMEN: Feeding tube on the left side of abdomen with some yellow drainage on the dressing, mild erythema at the insertion site with no cellulitis. Abdomen is soft and nontender, nondistended. Bowel sounds are positive, no peritonitis. EXTREMITIES: No cyanosis or edema, full range of motion of all the joints without pain or difficulty, no signs for acute trauma. NEUROLOGIC: Oriented x 3, no acute motor or sensory deficits, no focal weakness. SKIN: No rash, no jaundice, no diaphoresis. Medical Decision & Procedures ER Provider Diagnostic Interpretation: Radiology results as stated below per my review and radiologist interpretation: CHEST ONE VIEW PORTABLE FINDINGS: There is no pneumothorax. A small right pleural effusion is present. Abnormal right mediastinal contour is likely due to a gastric pull-up. Bibasilar opacities favor atelectasis. There is no evidence of pulmonary edema. IMPRESSION: 1. Small right pleural effusion with bibasilar opacities suggestive of atelectasis. 2. Abnormal right mediastinal contour which is likely related to a gastric pull-up. Electronically signed by: Dat Leonardo M.D. 09/19/2017 7:[address] OF THE ABDOMEN AND PELVIS WITHOUT CONTRAST FINDINGS: A small right pleural effusion is noted. A gastric pull-up is noted. A small amount of pneumoperitoneum is present. This may be postsurgical. There are post surgical findings consistent with esophagectomy with gastric pull-up, partially imaged on this exam. Evaluation of the abdomen and pelvis is suboptimal on this exam. The liver, spleen, adrenal glands, kidneys and pancreas are unremarkable. The infrarenal abdominal aorta is ectatic. There is a left lower quadrant jejunostomy catheter. Positioning is difficult to assess on this unenhanced exam but this appears appropriate position. There is no associated fluid collection. There is a small amount gas within the bladder. There is some colonic diverticulosis without evidence for acute diverticulitis. No suspicious osseous lesion is present. There is no fluid collection to suggest an abscess. IMPRESSION: 1. Status post recent esophagectomy with gastric pull-up, partially imaged on this exam. Moderate amount of ingested material within the stomach. Small right pleural effusion with right lower lobe airspace opacity suggestive of atelectasis. 2. Small amount of pneumoperitoneum. While slightly greater than expected given the time interval from surgery, this is likely postsurgical. Close clinical follow-up is recommended given the less likely possibility of a perforated viscus. 3. No bowel obstruction. 4. Left lower quadrant jejunostomy catheter in place. 5. Small amount of gas within the bladder which is presumably related to recent instrumentation. Electronically signed by: Dat Leonardo M.D. 09/19/2017 8:06 PM Laboratory Results 09/19/17 19:20 Red Blood Count 3.45, Mean Corpuscular Volume 96.5, Mean Corpuscular Hemoglobin 31.9, Mean Corpuscular Hemoglobin Concent 33.0, Mean Platelet Volume 8.7, Neutrophils (%) (Auto) 78.4, Lymphocytes (%) (Auto) 6.4, Monocytes (%) (Auto) 10.6, Eosinophils (%) (Auto) 2.1, Basophils (%) (Auto) 0.5, Neutrophils # (Auto ) 7.99, Lymphocytes # (Auto) 0.65, Monocytes # (Auto) 1.08, Eosinophils # (Auto ) 0.21, Basophils # (Auto) 0.05 09/19/17 19:20 Test 09/19/17 19:20 White Blood Count 10.18 K/uL (4.8-10.8) Red Blood Count 3.45 M/uL (4.7-6.1) Hemoglobin 11.0 g/dL (14.0-18.0) Hematocrit 33.3 % (42-52) Mean Corpuscular Volume 96.5 fL (80-100) Mean Corpuscular Hemoglobin 31.9 pg (25-34) Mean Corpuscular Hemoglobin Concent 33.0 g/dl (32-36) Platelet Count 440 K/uL (130-400) Mean Platelet Volume 8.7 fL (7.4-10.4) Neutrophils (%) (Auto) 78.4 % Lymphocytes (%) (Auto) 6.4 % Monocytes (%) (Auto) 10.6 % Eosinophils (%) (Auto) 2.1 % Basophils (%) (Auto) 0.5 % Neutrophils # (Auto) 7.99 K/uL (1.4-6.5) Lymphocytes # (Auto) 0.65 K/uL (1.2-3.4) Monocytes # (Auto) 1.08 K/uL (0.11-0.59) Eosinophils # (Auto) 0.21 K/uL (0-0.5) Basophils # (Auto) 0.05 K/uL (0-0.2) RDW Standard Deviation 51.1 fL (36.4-46.3) RDW Coefficient of Variation 14.5 % (11.5-14.5) Immature Granulocyte % (Auto) 2.0 % Immature Granulocyte # (Auto) 0.20 K/uL (0.00-0.02) Anion Gap 6.0 mmol/L (3-11) Est Creatinine Clear Calc Drug Dose 101.5 ml/min Estimated GFR () 113.2 Estimated GFR (Non- 97.7 BUN/Creatinine Ratio 31.4 (10-20) Calcium Level 9.3 mg/dl (8.5-10.1) Magnesium Level 2.3 mg/dl (1.8-2.4) Total Bilirubin 0.4 mg/dl (0.2-1) Aspartate Amino Transf (AST/SGOT) 28 U/L (15-37) Alanine Aminotransferase (ALT/SGPT) 58 U/L (12-78) Alkaline Phosphatase 204 U/L (45-117) Total Protein 7.1 gm/dl (6.4-8.2) Albumin 2.6 gm/dl (3.4-5.0) Globulin 4.5 gm/dl (2.5-4.0) Albumin/Globulin Ratio 0.6 (0.9-2) Laboratory results reviewed by me. Medications Administered Medications (Trade) Dose Ordered Sig/Yo Route Start Time Stop Time Status Last Admin Dose Admin Sodium Chloride 500 ml @ 999 mls/hr Q31M STAT IV 09/19/17 19:10 09/19/17 19:40 DC 09/19/17 19:25 999 MLS/HR ED Course 1903: The patient was evaluated in room C2. A complete history and physical exam was performed. 1919: Sodium Chloride 500 ml @ 999 mls/hr IV 2001: I spoke to Dr. Leonardo - Radiology, [facility]. We talked about the air in the patient's CT scan. 2004: I spoke to Dr. Queen - Thoracic Surgery, [facility] [place]. He said to give the patient 17g of Miralax in 6oz of liquid through the tube. He notes that the patient should not receive any tube feeds tonight. He will see the patient tomorrow. 2009: Polyethylene 17gm PO 2030: Reevaluated the patient. Discussed results and discharge instructions: he verbalized understanding and agreement. The patient is ready for discharge. Medical Decision Differential diagnoses include: bowel obstruction, constipation, dehydration, electrolyte imbalance, infection, pneumonia, and UTI. There is no leukocytosis or concerning anemia. No significant electrolyte abnormality, kidney failure or hepatitis. Chest x-ray shows postsurgical changes, no pneumonia or free air. Abdominal and pelvis CT shows the J-tube to be in proper position. There was no bowel obstruction, there was some free air felt to be postsurgical. The patient is not toxic or febrile. He does not have peritonitis. His bowel sounds are positive. He is not tender across the abdomen on my exam. I discussed the case with Dr. Queen. The patient is not to use his tube feeds tonight. He was given oral Miralax through his feeding tube to help with bowel motility. He will see Dr. Queen tomorrow at 10:15 in the AM. The patient was reassured by his testing, he was encouraged to return for worsening symptoms. It does appear that the discharged on his feeding tube dressing is tube feed material. Hopefully, the Miralax will stimulate his bowel motility and help with the tube feed clearance. Medication Reconcilliation Current Medication List: was personally reviewed by me Blood Pressure Screening Patient's blood pressure: Normal blood pressure Blood pressure disposition: Did not require urgent referral Consults Time Called: 2000 Consulting Physician: Dr. Leonardo - Radiology, [facility] Returned Call: 2001 We talked about the air in the patient's CT scan. Additional Consults: Time Called: 2003 Consulted Physician: Dr. Queen - Thoracic Surgery, [facility] Returned Call: 2004 Additional Comments: He said to give the patient 17g of Miralax in 6oz of liquid through the tube. He notes that the patient should not receive any tube feeds tonight. He will see the patient tomorrow. Impression Primary Impression: Complication of feeding tube Additional Impression: Bloating Scribe Attestation The scribe's documentation has been prepared under my direction and personally reviewed by me in its entirety. I confirm that the note above accurately reflects all work, treatment, procedures, and medical decision making performed by me. Departure Information Dispostion Home / Self-Care Referrals Zack Garcia M.D. (PCP) Forms HOME CARE DOCUMENTATION FORM, IMPORTANT VISIT INFORMATION, WORK / SCHOOL INSTRUCTIONS Patient Instructions My [facility] Additional Instructions no tube feeds this evening report to Dr. Vital's office tomorrow am at 1015 imaging was ok today labs were ok today Problem Qualifiers
[2017-09-19] MEDS ORDERED: NUTRLIQ61 JT (19:31)
[2017-09-19 19:35] LABS: BASO % 0.5 %; BASO ABS # 0.05 K/uL (0-0.2); COMPLETE YES; EOS % 2.1 %; HEMATOCRIT 33.3 % (42-52); LYMPH % 6.4 %; LYMPH ABS # 0.65 K/uL (1.2-3.4); MEAN CELL VOLUME 96.5 fL (80-100); MEAN CORPUSCULAR HEMOGLOBIN 31.9 pg (25-34); MEAN PLATELET VOLUME 8.7 fL (7.4-10.4); MONO % 10.6 %; NEUT % 78.4 %; PLATELET COUNT 440 K/uL (130-400); RED BLOOD COUNT 3.45 M/uL (4.7-6.1); WHITE BLOOD COUNT 10.18 K/uL (4.8-10.8)
[2017-09-19 19:54] LABS: BUN/CREATININE RATIO 31.4 (10-20); CALCIUM 9.3 mg/dl (8.5-10.1); CREATININE 0.7 mg/dl (0.60-1.40); MAGNESIUM 2.3 mg/dl (1.8-2.4)
[2017-09-19 19:57] LABS: ALB/GLOB RATIO 0.6 (0.9-2)
--- NOTE | 2017-09-19 19:59 | DIAGNOSTIC IMAGING REPORT ---
CHEST ONE VIEW PORTABLE CLINICAL HISTORY: Altered mental status. Weakness. Esophageal cancer. COMPARISON STUDY: PET/CT August 15, 2017 and chest radiograph September 15, 2017. FINDINGS: There is no pneumothorax. A small right pleural effusion is present. Abnormal right mediastinal contour is likely due to a gastric pull-up. Bibasilar opacities favor atelectasis. There is no evidence of pulmonary edema. IMPRESSION: 1. Small right pleural effusion with bibasilar opacities suggestive of atelectasis. 2. Abnormal right mediastinal contour which is likely related to a gastric pull-up. Electronically signed by: Dat Leonardo M.D. 09/19/2017 7:58 PM Dictated Date/Time: 09/19/2017 7:54 PM
--- NOTE | 2017-09-19 20:07 | DIAGNOSTIC IMAGING REPORT ---
CT OF THE ABDOMEN AND PELVIS WITHOUT CONTRAST CLINICAL HISTORY: Abdominal pain. Esophageal carcinoma status post esophagogastrectomy September 07, 2017. COMPARISON STUDY: PET/CT August 15, 2017. TECHNIQUE: Axial images of the abdomen and pelvis were obtained without IV contrast. Images were reviewed in the axial, sagittal, and coronal planes. A dose lowering technique was utilized adhering to the principles of ALARA. FINDINGS: A small right pleural effusion is noted. A gastric pull-up is noted. A small amount of pneumoperitoneum is present. This may be postsurgical. There are post surgical findings consistent with esophagectomy with gastric pull-up, partially imaged on this exam. Evaluation of the abdomen and pelvis is suboptimal on this exam. The liver, spleen, adrenal glands, kidneys and pancreas are unremarkable. The infrarenal abdominal aorta is ectatic. There is a left lower quadrant jejunostomy catheter. Positioning is difficult to assess on this unenhanced exam but this appears appropriate position. There is no associated fluid collection. There is a small amount gas within the bladder. There is some colonic diverticulosis without evidence for acute diverticulitis. No suspicious osseous lesion is present. There is no fluid collection to suggest an abscess. IMPRESSION: 1. Status post recent esophagectomy with gastric pull-up, partially imaged on this exam. Moderate amount of ingested material within the stomach. Small right pleural effusion with right lower lobe airspace opacity suggestive of atelectasis. 2. Small amount of pneumoperitoneum. While slightly greater than expected given the time interval from surgery, this is likely postsurgical. Close clinical follow-up is recommended given the less likely possibility of a perforated viscus. 3. No bowel obstruction. 4. Left lower quadrant jejunostomy catheter in place. 5. Small amount of gas within the bladder which is presumably related to recent instrumentation. Electronically signed by: Dat Leonardo M.D. 09/19/2017 8:06 PM Dictated Date/Time: 09/19/2017 7:58 PM
[2017-09-19] MEDS ORDERED: POLYETHYLENE (MIRALAX) 17 GM PACK PO STA (20:10)
[2017-09-19 21:03] VITALS: BP 114/71; PULSE 85; O2SAT 100
== END 2017-09-19 21:12 | disposition home or self-care (01) ==
LOC: C.EDB 18:55 → C.EDC 21:12
DX: K94.29 Other complications of gastrostomy (principal); R14.0 Abdominal distension (gaseous); Z85.01 Personal history of malignant neoplasm of esophagus; I10 Essential (primary) hypertension; I51.9 Heart disease, unspecified; K57.90 Diverticulosis of intestine, part unspecified, without perforation or abscess without bleeding; Z98.890 Other specified postprocedural states; Z87.891 Personal history of nicotine dependence; Z79.899 Other long term (current) drug therapy; Z91.041 Radiographic dye allergy status; Z83.3 Family history of diabetes mellitus; Z82.49 Family history of ischemic heart disease and other diseases of the circulatory system

== ENCOUNTER 2017-10-03 21:09 | Emergency (ER) | payer OTHER ==
[~2017-10-03] VITALS: Ht 182.9 cm; Wt 67.6 kg
[~2017-10-03 21:09] MED LIST changes: -ACET325T95 PO; -NUTR-1305 JT; +NUTRLIQ61 JT; +TYLOTC325 PO
[2017-10-03 21:25] VITALS: TEMP 36.5; Ht 182.9 cm; Wt 67.6 kg
[2017-10-03] MEDS ORDERED: TAMS0.4C38 PO (22:29)
[2017-10-03] MEDS ORDERED: ACET-1693 PO (22:29)
[2017-10-03 22:33] VITALS: O2SAT 95
[2017-10-03 22:46] LABS: BASO % 0.6 %; BASO ABS # 0.04 K/uL (0-0.2); EOS % 11.2 %; EOS ABS # 0.69 K/uL (0-0.5); HEMATOCRIT 35.9 % (42-52); HEMOGLOBIN 11.4 g/dL (14.0-18.0); IG# 0.02 K/uL (0.00-0.02); LYMPH % 9.5 %; LYMPH ABS # 0.59 K/uL (1.2-3.4); MEAN CORPUSCULAR HEMOGLOBIN 30.5 pg (25-34); MEAN CORPUSCULAR HGB CONC 31.8 g/dl (32-36); MEAN PLATELET VOLUME 8.8 fL (7.4-10.4); MONO % 10.8 %; MONO ABS # 0.67 K/uL (0.11-0.59); NEUT % 67.6 %; NEUT ABS # 4.17 K/uL (1.4-6.5); PLATELET COUNT 273 K/uL (130-400); RED CELL DISTRIBUTION WIDTH CV 14.1 % (11.5-14.5); RED CELL DISTRIBUTION WIDTH SD 49.7 fL (36.4-46.3); WHITE BLOOD COUNT 6.18 K/uL (4.8-10.8)
[2017-10-03 23:04] LABS: ALBUMIN 3.1 gm/dl (3.4-5.0); ALT/SGPT 19 U/L (12-78); BLOOD UREA NITROGEN 12 mg/dl (7-18); CALCIUM 9.6 mg/dl (8.5-10.1); CARBON DIOXIDE 30 mmol/L (21-32); CREATININE 0.81 mg/dl (0.60-1.40); GLUCOSE 114 mg/dl (70-99); LIPASE 56 U/L (73-393); POTASSIUM 3.8 mmol/L (3.5-5.1); SODIUM 138 mmol/L (136-145)
[2017-10-03 23:09] LABS: ALKALINE PHOSPHATASE 113 U/L (45-117); AST/SGOT 16 U/L (15-37); TOTAL PROTEIN 6.9 gm/dl (6.4-8.2)
[2017-10-03] MEDS ORDERED: KETOROLAC TROMETHAMINE 30 MG/ML VIAL IV STA (23:58)
--- NOTE | 2017-10-04 00:39 | EMERGENCY ROOM VISIT NOTE ---
History Report prepared by Ann: Cielo Benítez Under the Supervision of: Dr. London Puente M.D. First contact with patient: 21:48 Chief Complaint: BACK PAIN Stated Complaint: PAIN IN BACK AND RIB History of Present Illness The patient is a 67 year old male who presents to the Emergency Room with complaints of worsening back pain starting three days ago. The patient states that he had surgery for esophageal cancer on September 07. He states that his back pain started a few day ago and got so bad tonight that he could not get comfortable. He denies calling his surgeon, but notes he has an appointment with Dr. Queen and his urologist tomorrow. The patient complains of rib pain. The patient's notes that where his pain is is where his drainage tube and feeding tube were. She notes that the patient had the drainage tube taken out while still admitted and the feeding tube out two weeks ago. She states that he may have aggravated it lifting a brick up off the porch this afternoon with his right arm, which he is not allowed to do. The patient notes that the pain was there before lifting the brick, but became worse after doing so. The patient states that deep breathing makes the pain worse. The patient denies a history of back pain, taking anything for the pain, fevers, chills, cough, congestion, nausea, vomiting, diarrhea, headaches, dizziness, weakness in his legs, numbness, and tingling. The notes that the patient is on a soft diet and had a CT two weeks ago when they were here for his feeding tube. Source of History: patient, spouse/significant other Onset: 3 days ago Position: back Timing: worsening Modifying Factors (Worsening): breathing (deep), other (lifting a brick) Associated Symptoms: No fevers, No chills, No headache, No cough, No nausea , No vomiting, No diarrhea, No weakness, No numbness Note: The patient complains of rib pain. The patient denies congestion, dizziness, and tingling. Review of Systems See HPI for pertinent positives and negatives. A total of ten systems were reviewed and were otherwise negative. Past Medical & Surgical Medical Problems: (1) Diverticulosis (2) Esophageal cancer (3) Heart disease (4) Hypertension (5) Jejunostomy tube present Surgical Problems: (1) History of inguinal hernia repair (2) History of tonsillectomy Family History FHx: diabetes FHx: heart disease FHx: hypertension Social History Smoking Status: Former Smoker Drug Use: none Marital Status: Housing Status: lives with family Current/Historical Medications Scheduled Acetaminophen Tab (Tylenol), 650 MG PO Q4 Dipyridamole/Aspirin (Aggrenox 25-200 mg), 1 CAP PO BID Omeprazole (Prilosec), 40 MG PO QAM Simvastatin (Zocor), 40 MG PO QAM Tamsulosin Hcl (Flomax), 0.4 MG PO DAILY Allergies Coded Allergies: Iodinated Diagnostic Agents (Verified Allergy, Intermediate, HIVES, ) SHORTLY AFTER THE LIDOCAINE INJECTION DURING A SKIN LESION REMOVAL AND HAD RECEIVED CHEMOTHERAPY WITHIN 2 MONTHS PRIOR SURE UNSURE IF A TRUE ALLERGY. Lidocaine (Verified Allergy, Intermediate, HIVES, 08/30/17) HAD CHEMOTHERAPY WITHIN 2 MONTHS PRIOR Physical Exam Vital Signs Date Time Temp Pulse Resp B/P (MAP) Pulse Ox O2 Delivery O2 Flow Rate FiO2 10/04/17 00:57 69 16 122/79 99 10/03/17 23:09 76 18 122/74 99 Room Air 10/03/17 22:33 95 Room Air 10/03/17 21:25 36.5 84 18 122/78 99 Room Air Physical Exam GENERAL: Awake, alert, well-appearing, in no distress HENT: Normocephalic, atraumatic. Dry mucus membranes. EYES: Normal conjunctiva. Sclera non-icteric. NECK: Supple. No nuchal rigidity. FROM. No JVD. RESPIRATORY: Clear to auscultation. CARDIAC: Regular rate, normal rhythm. Extremities warm and well perfused. Pulses equal. ABDOMEN: Soft, non-distended. No tenderness to palpation. No rebound or guarding. No masses. RECTAL: Deferred. MUSCULOSKELETAL: Mild tenderness to the right posterior lateral chest wall at prior incision site. No erythema or warmth. No crepitus. The back is symmetrical on inspection without obvious abnormality. There is no CVA tenderness to palpation. No joint edema. LOWER EXTREMITIES: Calves are equal size bilaterally and non-tender. No edema. No discoloration. NEURO: Normal sensorium. No sensory or motor deficits noted. SKIN: No rash or jaundice noted. Medical Decision & Procedures ER Provider Diagnostic Interpretation: Radiology results as stated below per my review and radiologist interpretation: CT CHEST Without Contrast: 05/06/17 CT and 09/19/17 chest x-ray. Gastric pull ip, new since the prior CT and stable since the prior x-ray. Large amount of debris within the gastric pull up within the thorax. No wall thickening or pneumomediastinum. Small right pleural effusion. Right lower lobe atelectasis or consolidation medially. Small nodular airspace disease in the right lower lobe may reflect infectious/ inflammatory bronchitis. Consider follow-up to exclude malignancy. Scattered areas of atelectasis or airspace disease in the lingual/left lower lobe. Tiny left upper lobe nodule is stable and may be calcified/granuloma. Dilated left extrarenal pelvis or mild hydronephrosis. Area not fully visualized on the prior chest CT. Radiologist: Zara Duran MD Study ready at 23:17 and initial results transmitted at 23:46. Laboratory Results 10/03/17 22:34 Red Blood Count 3.74, Mean Corpuscular Volume 96.0, Mean Corpuscular Hemoglobin 30.5, Mean Corpuscular Hemoglobin Concent 31.8, Mean Platelet Volume 8.8, Neutrophils (%) (Auto) 67.6, Lymphocytes (%) (Auto) 9.5, Monocytes (%) (Auto) 10.8, Eosinophils (%) (Auto) 11.2, Basophils (%) (Auto) 0.6, Neutrophils # (Auto ) 4.17, Lymphocytes # (Auto) 0.59, Monocytes # (Auto) 0.67, Eosinophils # (Auto ) 0.69, Basophils # (Auto) 0.04 10/03/17 22:34 Test 10/03/17 22:34 White Blood Count 6.18 K/uL (4.8-10.8) Red Blood Count 3.74 M/uL (4.7-6.1) Hemoglobin 11.4 g/dL (14.0-18.0) Hematocrit 35.9 % (42-52) Mean Corpuscular Volume 96.0 fL (80-100) Mean Corpuscular Hemoglobin 30.5 pg (25-34) Mean Corpuscular Hemoglobin Concent 31.8 g/dl (32-36) Platelet Count 273 K/uL (130-400) Mean Platelet Volume 8.8 fL (7.4-10.4) Neutrophils (%) (Auto) 67.6 % Lymphocytes (%) (Auto) 9.5 % Monocytes (%) (Auto) 10.8 % Eosinophils (%) (Auto) 11.2 % Basophils (%) (Auto) 0.6 % Neutrophils # (Auto) 4.17 K/uL (1.4-6.5) Lymphocytes # (Auto) 0.59 K/uL (1.2-3.4) Monocytes # (Auto) 0.67 K/uL (0.11-0.59) Eosinophils # (Auto) 0.69 K/uL (0-0.5) Basophils # (Auto) 0.04 K/uL (0-0.2) RDW Standard Deviation 49.7 fL (36.4-46.3) RDW Coefficient of Variation 14.1 % (11.5-14.5) Immature Granulocyte % (Auto) 0.3 % Immature Granulocyte # (Auto) 0.02 K/uL (0.00-0.02) Anion Gap 5.0 mmol/L (3-11) Est Creatinine Clear Calc Drug Dose 84.6 ml/min Estimated GFR () 106.6 Estimated GFR (Non- 92.0 BUN/Creatinine Ratio 14.3 (10-20) Calcium Level 9.6 mg/dl (8.5-10.1) Total Bilirubin 0.2 mg/dl (0.2-1) Direct Bilirubin < 0.1 mg/dl (0-0.2) Aspartate Amino Transf (AST/SGOT) 16 U/L (15-37) Alanine Aminotransferase (ALT/SGPT) 19 U/L (12-78) Alkaline Phosphatase 113 U/L (45-117) Troponin I < 0.015 ng/ml (0-0.045) Total Protein 6.9 gm/dl (6.4-8.2) Albumin 3.1 gm/dl (3.4-5.0) Lipase 56 U/L (73-393) Laboratory results reviewed by me Medications Administered Medications (Trade) Dose Ordered Sig/Yo Route Start Time Stop Time Status Last Admin Dose Admin Ketorolac Tromethamine (Toradol Inj) 15 mg NOW STAT IV 10/03/17 23:58 10/03/17 23:59 DC 10/04/17 00:08 15 MG ECG Indication: back/shoulder pain Rate (beats per minute): 74 Rhythm: sinus rhythm Findings: PAC, no acute ischemic change, other (normal axis) ED Course 2155: The patient was evaluated in room C1B. A complete history and physical exam was performed. 0041: I reevaluated the patient. Discussed results and discharge instructions: He verbalized understanding and agreement. The patient is ready for discharge. Medical Decision I reviewed the patient's past medical history, medications, and the nursing notes as described above. Differential diagnoses include abscess, hematoma, musculoskeletal strain, pneumonia, bronchitis, pneumonitis, PE, pleural effusion. The patient is a 67-year-old gentleman with a past medical history of esophageal cancer and recent gastric pull-up by Dr. Queen since emergency Department with right-sided chest wall pain in the setting of lifting a brick per hpi. On arrival the patient is no acute distress, afebrile stable vital signs. On exam the patient has mild tenderness to the right lateral chest wall where there prior incision sites from his surgery. However no edema, erythema, crepitus to suggest infection. However given the patient's recent surgery CT scan was done and preliminary stat read read was unremarkable. Equivocal findings of atelectasis versus inflammation versus infection most likely postsurgical given the patient denies any other symptoms, is afebrile, WBC within normal limits. Patient feeling improved after dose of Toradol. Patient has scheduled follow-up with Dr. Queen tomorrow. Findings and plan for follow -up reviewed with patient. Patient agreeable and d/c'd per discharge instructions. Medication Reconcilliation Current Medication List: was personally reviewed by me Blood Pressure Screening Patient's blood pressure: Normal blood pressure Blood pressure disposition: Did not require urgent referral Impression Primary Impression: Back pain Additional Impression: Muscle strain Scribe Attestation The scribe's documentation has been prepared under my direction and personally reviewed by me in its entirety. I confirm that the note above accurately reflects all work, treatment, procedures, and medical decision making performed by me. Departure Information Dispostion Home / Self-Care Referrals No Doctor, Assigned (PCP) Pascual Queen MD Forms HOME CARE DOCUMENTATION FORM, IMPORTANT VISIT INFORMATION Patient Instructions Back Pain - [facility], ED Muscle Aching, My [facility] Additional Instructions Please follow up with your surgeon, Dr. Queen, tomorrow as scheduled for re- evaluation. Your symptoms are most likely due to a muscular strain. Otherwise, your exam, EKG, CT scan, and lab results did not show signs of an emergent condition at this time. Acetaminophen or Ibuprofen for pain as needed. Return to the emergency department for worsening symptoms as described in the accompanying instructions. Problem Qualifiers
[2017-10-04 00:57] VITALS: BP 122/79; PULSE 69; O2SAT 99
--- NOTE | 2017-10-04 06:47 | DIAGNOSTIC IMAGING REPORT ---
CT OF THE CHEST WITHOUT IV CONTRAST CLINICAL HISTORY: Right chest pain s/p esophaeal ca surgery. COMPARISON STUDY: Chest CT May 06, 2017, PET/CT August 16, 2017. CT DOSE: 272.88 mGy.cm TECHNIQUE: Axial images of the chest were obtained without IV contrast. Images were reviewed in the axial, sagittal, and coronal planes. IV contrast was not administered for this examination. A dose lowering technique was utilized adhering to the principles of ALARA. FINDINGS: There are postsurgical findings consistent with esophagectomy with gastric pull-up. No enlarged axillary, mediastinal or hilar lymph nodes are present. A trace right pleural effusion has decreased in size since CT of September 19, 2017. There are mild right middle lobe, bilateral lower lobe and lingular airspace opacities. There is a large amount of ingested material within the pulled up stomach. There is no pneumomediastinum. Pneumoperitoneum within the upper abdomen shown on CT of September 19, 2017 has resolved. A few tiny pulmonary nodules are similar to chest CT of May 06, 2017. These are likely benign. No suspicious osseous lesions are present. Mild dilatation of the ascending aorta, measuring 4 cm is unchanged. There is no pericardial effusion. There is a suspected left-sided extrarenal pelvis which is unchanged. Mild operative bed infiltration is likely postsurgical. This has slightly diminished since prior CT. IMPRESSION: 1. Status post esophagectomy with gastric pull-up. No pneumomediastinum. Interval resolution of pneumoperitoneum shown on CT of September 19, 2017. Trace right pleural effusion which has decreased in size. Large amount of ingested material within the proximal stomach. 2. Bilateral lower lobe, right middle lobe and lingular opacities which favor atelectasis although a mild infectious process could appear similar. 3. No thoracic lymphadenopathy. Electronically signed by: Dat Leonardo M.D. 10/04/2017 6:45 AM Dictated Date/Time: 10/04/2017 6:34 AM
== END 2017-10-04 00:59 | disposition home or self-care (01) ==
LOC: C.EDB 21:10 → C.EDC 10-04 00:59
DX: M54.9 Dorsalgia, unspecified (principal); R07.89 Other chest pain; S39.012A Strain of muscle, fascia and tendon of lower back, initial encounter; X58.XXXA Exposure to other specified factors, initial encounter; K57.90 Diverticulosis of intestine, part unspecified, without perforation or abscess without bleeding; I10 Essential (primary) hypertension; I50.9 Heart failure, unspecified; Z85.01 Personal history of malignant neoplasm of esophagus; Z93.4 Other artificial openings of gastrointestinal tract status; Z98.890 Other specified postprocedural states; Z87.891 Personal history of nicotine dependence; Z79.899 Other long term (current) drug therapy; Z91.041 Radiographic dye allergy status; Z83.3 Family history of diabetes mellitus; Z82.49 Family history of ischemic heart disease and other diseases of the circulatory system

== ENCOUNTER → 2017-11-30 | Outpatient (CLI) | payer OTHER ==
[~2017-11-30] MED LIST changes: +ACET-1693 PO; -FLM4 PO; -NUTRLIQ61 JT; +TAMS0.4C38 PO; -TYLOTC325 PO
== END | disposition home or self-care (01) ==
LOC: C.LABSPEC 15:58
PROVIDERS: ATTEND Dermatology
DX: L73.9 Follicular disorder, unspecified (principal)

== ENCOUNTER → 2018-01-25 | Outpatient (CLI) | payer OTHER ==
[~2018-01-25] MED LIST changes: +OPTIRAY 320 IV PRN
--- NOTE | 2018-01-25 14:44 | DIAGNOSTIC IMAGING REPORT ---
CHEST, ABDOMEN, AND PELVIS CT WITH CONTRAST CT DOSE: 846.81 mGycm HISTORY: CT TECHNIQUE: Multiaxial CT images of the chest, abdomen, pelvis were performed following the intravenous administration of contrast as well as oral contrast. A dose lowering technique was utilized adhering to the principles of ALARA. COMPARISON: Chest abdomen and pelvis CT 10/03/2017. FINDINGS: The central airways are patent. No pleural effusions. No pneumothorax. Small patchy area of groundglass density seen within the periphery of the right upper lobe. This is new from the prior study and favors mild inflammatory/infectious change. No suspicious pulmonary nodules identified. There is also a new 1 cm groundglass nodule within the right lower lobe on image 158. This also favors a small focus of inflammatory/infectious change. No pneumomediastinum. No suspicious lytic or blastic osseous lesions. Postoperative changes consistent with prior esophagectomy and gastric pull-up. No mediastinal or hilar lymphadenopathy. The main pulmonary arteries are patent. Normal caliber thoracic aorta. No pericardial effusion. No pneumoperitoneum. No pneumatosis. No suspicious lytic or blastic osseous lesions within the abdomen or pelvis. Mild soft tissue thickening and fat stranding within the epigastric region adjacent to the esophageal hiatus has improved. Therefore, this favors resolving postoperative change. Stable ectatic abdominal aorta measuring up to 2.9 cm. No retroperitoneal or mesenteric lymphadenopathy. No bladder wall thickening. Small right-sided bladder diverticulum. Prior prostatectomy. Colonic diverticulosis. No bowel wall thickening or obstruction. No hepatic or splenic masses. The gallbladder, pancreas, and adrenal glands are unremarkable. Stable mild fullness within the left renal collecting system without sergo hydronephrosis. There is a 6 mm stone within the lower pole of the left kidney. There are 2 hypodense lesions within the left kidney with the largest measuring 14 mm. These favor cysts. IMPRESSION: 1. Status post esophagectomy with gastric pull-up. Interval improvement in the fat stranding at the epigastric region adjacent to the esophageal hiatus. Therefore, this favors resolving postoperative change. No evidence for metastatic disease within the chest, abdomen, pelvis. 2. There are few new areas of small groundglass nodular densities within the right upper lobe and right lower lobe. This favors mild inflammatory/infectious change. 3. Additional findings as described above. Electronically signed by: Santiago Bergman M.D. 01/25/2018 2:43 PM Dictated Date/Time: 01/25/2018 2:28 PM
== END | disposition home or self-care (01) ==
LOC: C.CTS 13:39
PROVIDERS: ATTEND Internal Medicine Hematology & Oncology
DX: C15.5 Malignant neoplasm of lower third of esophagus (principal); R91.8 Other nonspecific abnormal finding of lung field